=== PATIENT | female | born 1960 | race Caucasian/White ===

== ENCOUNTER → 2020-02-02 14:58 | Outpatient (BNVA) | payer OTHER, SELFPAY | PROVIDERS: PCP Internal Medicine; Referring Provider Internal Medicine; Visit Provider Surgery | DX: Z76.89 Persons encountering health services in other specified circumstances (principal) ==

== ENCOUNTER 2020-03-10 07:34 | Outpatient (REF) | payer OTHER, SELFPAY ==
--- NOTE | 2020-03-10 07:59 | FL_ITS ---
PROCEDURE: XR GI SERIES CLINICAL INFORMATION: Gastroesophageal reflux without esophagitis. COMPARISON: None TECHNIQUE: Routine upper GI air-contrast study was performed. FINDINGS: Following oral administration of thick barium and effervescent granules there is normal propagation of bolus from the oral cavity through the pharynx, esophagus into stomach without any evidence of obstruction, narrowing or stricture. On placing patient lying supine and prone the course, caliber and peristalsis of the stomach, duodenal bulb and the CBD is normal. The mucosal pattern of the stomach and the duodenum is normal. There is no hiatal hernia or gastroesophageal reflux. FLUOROSCOPY TIME: 2.4 minutes. DOSE AREA PRODUCT: 69.856 uGy-m2 (microgray-meter squared). FL/FL upper GI series IMPRESSION: Unremarkable upper GI air-contrast study.
--- NOTE | 2020-03-10 07:59 | XR_ITS ---
EXAMINATION: XR HIP, LEFT CLINICAL INFORMATION: Pain left hip. COMPARISON: Left hip 11/17/2015 TECHNIQUE: Two views of the left hip. FINDINGS: The left hip joint space is maintained. There is no visible acute fracture, dislocation or subluxation. The soft tissues are normal. No bony abnormality seen. XR/XR hip LT min 2V IMPRESSION: Unremarkable left hip exam. No visible acute fracture or dislocation seen. No change from 11/17/2015.
[2020-03-10 08:35] LABS: Hematocrit 43.1 % (37-47); Hemoglobin 14.4 g/dl (12.0-16.0); Mean Corpuscular HGB Conc 33.4 g/dl (31.0-35.0); Mean Corpuscular Hemoglobin 30.3 pg (27.0-33.0); Mean Corpuscular Volume 90.7 fL (80-98); Mean Platelet Volume 10.1 fL (9.4-12.3); Platelet Count 242 X10*3/uL (160-400); Red Blood Count 4.75 X10*6/uL (4.20-5.50); Red Cell Distribution Width 12.8 % (11.0-16.0); White Blood Count 6.3 X10*3/uL (4.8-10.8)
[2020-03-10 09:37] LABS: Alanine Aminotransferase 27 U/L (0-31); Albumin Level 4.4 g/dL (3.5-5.0); Alkaline Phosphatase 72 U/L (39-117); Anion Gap 14 (12-20); Aspartate Amino Transferase 28 U/L (5-31); Bilirubin Total 0.7 mg/dL (0.0-1.0); Blood Urea Nitrogen 13 mg/dL (9-16); Calcium 9.4 mg/dL (8.4-10.2); Carbon Dioxide 27 mmol/L (22-29); Chloride 106 mmol/L (96-108); Cholesterol 222 mg/dL; Estimated Glomerular Filt Rate > 60; Glucose Fasting 108 mg/dL (60-99); HDL Cholesterol 60 mg/dL; LDL Cholesterol Calculated 138 mg/dl; Potassium 4.1 mmol/l (3.3-5.1); Sodium 143 mmol/L (135-145); Total Protein 7.2 g/dL (6.5-8.0); Triglycerides 122 mg/dL
[2020-03-15 16:07] LABS: Vitamin D 25-OH, D2 <4 ng/mL; Vitamin D 25-OH, D3 49 ng/mL; Vitamin D 25-OH, Total 49 ng/mL (30-100)
== END 2020-03-10 07:35 | disposition home or self-care (01) ==
LOC: HO.LAB 07:34
PROVIDERS: PCP Internal Medicine; Visit Provider Internal Medicine
DX: K21.9 Gastro-esophageal reflux disease without esophagitis (principal); M25.552 Pain in left hip; E55.9 Vitamin D deficiency, unspecified; E66.9 Obesity, unspecified; E78.5 Hyperlipidemia, unspecified
CPT/HCPCS: 36415; 73502; 74240; 80053; 80061; 82306; 85027

== ENCOUNTER 2020-04-11 08:54 | Outpatient (REF) | payer SELFPAY ==
--- NOTE | 2020-04-11 | MM_ITS ---
EXAMINATION: MM DIAGNOSTIC DIGITAL BREAST TOMOSYNTHESIS, RIGHT CLINICAL INFORMATION: Density upper outer aspect The lifetime risk of breast cancer based on the Tyrer-Cuzick Model is 12.1%. COMPARISON: Mammography: October 12, 2019 and studies dating back to February 09, 2014 TECHNIQUE: Digital breast tomosynthesis is performed in both the craniocaudal and mediolateral oblique views along with computer-aided detection (CAD). Synthesized 2D images are generated from the tomosynthesis. FINDINGS: The breasts are heterogeneously dense, which may obscure small masses (ACR BI-RADS breast composition Category c). There are no significant masses, abnormal calcifications, or other abnormalities. The density within the upper outer aspect of the right breast is seen to have a fatty cleft representing intramammary lymph node. Results are provided to the patient at time of visit by the technologist. MM/MM tomosynthesis diagnostic RT IMPRESSION: There are no significant changes from prior study. ASSESSMENT: BI-RADS 2: Benign RECOMMENDATION: Routine annual mammography screening, due in 6 months. This patient's information was entered into a reminder system with a target due date for their next mammogram.
== END 2020-04-11 08:55 | disposition home or self-care (01) ==
LOC: HO.MAMMO 08:54
PROVIDERS: PCP Internal Medicine; Visit Provider Internal Medicine
DX: N64.9 Disorder of breast, unspecified (principal)
CPT/HCPCS: 77061; 77065

== ENCOUNTER 2020-10-10 08:32 | Outpatient (REF) | payer OTHER, SELFPAY ==
--- NOTE | ~2020-10-10 | MM_ITS ---
EXAMINATION: MM SCREENING DIGITAL BREAST TOMOSYNTHESIS, BILATERAL CLINICAL INFORMATION: Screening. Asymptomatic. The lifetime risk of breast cancer based on the Tyrer-Cuzick Model is 13%. COMPARISON: Mammography: 04/11/2020, 10/12/2019, 10/07/2019, 09/17/2019, 09/10/2018, 10/03/2017 TECHNIQUE: Digital breast tomosynthesis is performed in both the craniocaudal and mediolateral oblique views along with computer-aided detection (CAD). Synthesized 2D images are generated from the tomosynthesis. FINDINGS: The breasts are heterogeneously dense, which may obscure small masses (ACR BI-RADS breast composition Category c). There are no significant masses, abnormal calcifications, or other abnormalities. Parenchymal pattern is similar to prior studies. No developing density. Nodular asymmetry posterior outer right breast stable. There are scattered calcifications. Left breast and central biopsy clip marker. The axilla and skin contours are unremarkable. MM/MM tomosynthesis screening BI IMPRESSION: No mammographic evidence of malignancy. ASSESSMENT: BI-RADS 2: Benign RECOMMENDATION: Routine annual mammography screening. This patient's information was entered into a reminder system with a target due date for their next mammogram.
== END 2020-10-10 08:33 | disposition home or self-care (01) ==
LOC: HO.MAMMO 08:32
PROVIDERS: Visit Provider Internal Medicine
DX: Z12.31 Encounter for screening mammogram for malignant neoplasm of breast (principal)
CPT/HCPCS: 77063; 77067

== ENCOUNTER 2021-08-19 08:32 | Outpatient (REF) | payer OTHER, SELFPAY ==
[2021-08-19 08:54] LABS: MANUAL DIFF FLAG NO
[2021-08-19 09:19] LABS: Basophils Percent Auto 0.7 % (0-2); Eosinophils Absolute Auto 0.1 X10*3/uL (0.0-0.4); Eosinophils Percent Auto 2.3 % (0-4); Hemoglobin 14.2 g/dl (12.0-16.0); Imm Gran Abs Auto 0.02 X10*3/uL (0.00-0.03); Imm Gran Pct Auto 0.3 % (0.0-0.4); Lymphocytes Absolute Auto 1.8 X10*3/uL (1.2-4.9); Lymphocytes Percent Auto 29.4 % (20-40); Mean Corpuscular HGB Conc 33.8 g/dl (31.0-35.0); Mean Corpuscular Hemoglobin 30.7 pg (27.0-33.0); Mean Corpuscular Volume 90.7 fL (80.0-98.0); Monocytes Absolute Auto 0.5 X10*3/uL (0.1-1.2); Monocytes Percent Auto 8.6 % (2-11); Neutrophils Absolute Auto 3.6 x10*3/uL (2.0-8.3); Neutrophils Percent Auto 58.7 % (45-73); Platelet Count 210 X10*3/uL (160-400); Red Blood Count 4.63 X10*6/uL (4.20-5.50); Red Cell Distribution Width 13.5 % (11.0-16.0); White Blood Count 6.2 X10*3/uL (4.8-10.8)
[2021-08-19 09:42] LABS: Alanine Aminotransferase 18 U/L (0-31); Albumin Level 4.3 g/dL (3.5-5.0); Alkaline Phosphatase 75 U/L (39-117); Anion Gap 12 (12-20); Aspartate Amino Transferase 17 U/L (5-31); Bilirubin Total 0.7 mg/dL (0.0-1.0); Blood Urea Nitrogen 16 mg/dL (9-16); Calcium 9.2 mg/dL (8.4-10.2); Carbon Dioxide 28 mmol/L (22-29); Chloride 107 mmol/L (96-108); Cholesterol 197 mg/dL; Estimated Glomerular Filt Rate > 60; Glucose Fasting 110 mg/dL (60-99); HDL Cholesterol 65 mg/dL; LDL Cholesterol Calculated 117 mg/dl; Potassium 4.5 mmol/L (3.3-5.1); Sodium 142 mmol/L (135-145); Total Protein 7.1 g/dL (6.5-8.0); Triglycerides 75 mg/dL
[2021-08-19 10:05] LABS: Erythrocyte Sedimentation Rate 11 MM/HR (0-20)
[2021-08-19 10:18] LABS: Vitamin D 25-OH Total 59.6 ng/mL (>30)
[2021-08-19 11:20] LABS: Alanine Aminotransferase 19 U/L (0-31); Albumin Level 4.4 g/dL (3.5-5.0); Alkaline Phosphatase 74 U/L (39-117); Anion Gap 15 (12-20); Aspartate Amino Transferase 21 U/L (5-31); Bilirubin Total 0.5 mg/dL (0.0-1.0); Blood Urea Nitrogen 15 mg/dL (9-16); C Reactive Protein 0.69 mg/dL (< or = 0.50); Calcium 9.4 mg/dL (8.4-10.2); Carbon Dioxide 27 mmol/L (22-29); Chloride 107 mmol/L (96-108); Estimated Glomerular Filt Rate > 60; Glucose Random 112 mg/dL (60-115); Potassium 4.5 mmol/L (3.3-5.1); Sodium 144 mmol/L (135-145); Total Protein 7.1 g/dL (6.5-8.0)
[2021-08-21 13:52] LABS: CA 125 New Method 7 U/mL (<35); CA-125 7 U/mL (<35)
== END 2021-08-19 08:33 | disposition home or self-care (01) ==
LOC: HO.LAB 08:32
PROVIDERS: Absent Provider Internal Medicine Rheumatology; PCP Internal Medicine; Visit Provider Internal Medicine
DX: Z00.00 Encounter for general adult medical examination without abnormal findings (principal); M88.9 Osteitis deformans of unspecified bone; E55.9 Vitamin D deficiency, unspecified; E78.5 Hyperlipidemia, unspecified; D64.9 Anemia, unspecified; Z91.89 Other specified personal risk factors, not elsewhere classified; Z83.49 Family history of other endocrine, nutritional and metabolic diseases
CPT/HCPCS: 36415; 80053; 80061; 81256; 82306; 85025; 85652; 86140; 86304

== ENCOUNTER 2021-11-03 08:53 | Outpatient (REF) | payer OTHER, SELFPAY ==
--- NOTE | ~2021-11-03 | MM_ITS ---
EXAMINATION: MM SCREENING DIGITAL BREAST TOMOSYNTHESIS, BILATERAL CLINICAL INFORMATION: Screening. Asymptomatic. The lifetime risk of breast cancer based on the Tyrer-Cuzick Model is 10%. COMPARISON: Mammography: 10/11/2020, 04/11/2020, 10/12/2019, 10/07/2019, 09/10/2018, 09/03/2017, 08/29/2016; targeted ultrasound right breast 10/12/2019 TECHNIQUE: Digital breast tomosynthesis is performed in both the craniocaudal and mediolateral oblique views along with computer-aided detection (CAD). Synthesized 2D images are generated from the tomosynthesis. FINDINGS: The breasts are heterogeneously dense, which may obscure small masses (ACR BI-RADS breast composition Category c). Parenchymal pattern is similar to prior studies. Probable intraparenchymal node posterior outer right breast is stable. There is a biopsy clip marker again seen central left breast mid depth. There is no interval mass or developing density or architectural abnormality. No abnormal calcifications. The axilla and skin contours are unremarkable. MM/MM tomosynthesis screening BI IMPRESSION: No mammographic evidence of malignancy. ASSESSMENT: BI-RADS 2: Benign RECOMMENDATION: Routine annual mammography screening. This patient's information was entered into a reminder system with a target due date for their next mammogram.
== END 2021-11-03 08:54 | disposition home or self-care (01) ==
LOC: HO.MAMMO 08:53
PROVIDERS: PCP Internal Medicine; Visit Provider Internal Medicine
DX: Z12.31 Encounter for screening mammogram for malignant neoplasm of breast (principal)
CPT/HCPCS: 77063; 77067

== ENCOUNTER 2022-03-09 11:07 | Day surgery (SDC) | payer OTHER, SELFPAY ==
[2022-03-06 12:25] VITALS: BMI 44.6
--- NOTE | 2022-03-08 13:17 | HO.ANESPROP2 ---
Documented by User: Bethany Escobar NP 03/08/22 13:20 HPI - Anesthesia Eval Consult details Narrative: 62yo F for Colonoscopy PMFSH Active Problems Active Problems: All Active Problems (Updated 03/06/22 @ 12:25 by Jimena Platt, TASIA) At high risk for breast cancer (Acute) Pre-operative examination (Acute) Family history of colon cancer (Acute) Impaired glucose tolerance (Acute) Elevated blood pressure reading without diagnosis of hypertension (Acute) Essential hypertension (Acute) Knee osteoarthritis (Acute) Family history of hemochromatosis (Acute) Morbid obesity due to excess calories (Acute) Screen for colon cancer (Acute) Encounter for physical examination (Acute) GERD (gastroesophageal reflux disease) (Acute) Left hip pain (Acute) Hypovitaminosis D (Acute) Obese (Acute) Past Medical History Medical History Ascending aortic aneurysm Basal cell carcinoma Encounter for physical examination Family history of hemochromatosis GERD (gastroesophageal reflux disease) Hypercholesterolemia Hypertension Hypovitaminosis D Knee osteoarthritis Left hip pain Morbid obesity due to excess calories Obese Osteoarthritis, knee Paget's bone disease Pseudocholinesterase deficiency Screen for colon cancer Family History Family History Father Colon cancer Brother Hemochromatosis Mother Ovarian cancer Brother Colon cancer Maternal Aunt Breast cancer Surgical History Surgical History H/O basal cell carcinoma excision H/O colonoscopy History of appendectomy History of foot surgery History of laparoscopic cholecystectomy History of tonsillectomy and adenoidectomy S/P AYANA-BSO (total abdominal hysterectomy and bilateral salpingo-oophorectomy) Social History Social History Household Members Other:: sister Housing: House Are you a primary care team coordinator scheduler to a significant other at home: No Do you presently have visiting nurse or other home services: No Alcohol intake: never Patient Tobacco Use Status: Never used Tobacco e-Cigarette/Vaping Use: Never Used Second Hand Smoke Exposure: No Use of substances other than those prescribed or required for medical reasons: No Have you been hit, kicked, punched, or otherwise hurt by someone within the past year? If so, by whom?: No Are you DNR?: No Advance Directives: No Advance Directives Information Provided: Yes Advance Directives on File: No Recently lost weight without trying: No service: No Current occupational status: unemployed Cognitive needs: No Hearing needs: No Vision needs: Yes Meds Allergies Allergy/AdvReac Type Severity Reaction Status Date / Time Cephalosporins Allergy Intermediate FLUSHING Verified 03/06/22 12:12 [CEPHALOSPORINS] IN FACE FEVER Penicillins [PENICILLINS] Allergy Intermediate FLUSHING Verified 03/06/22 12:12 IN FACE, FEVER Sulfa (Sulfonamide Allergy Unknown Unknown Verified 03/06/22 12:13 Antibiotics) Home Medications Medication Instructions Recorded Confirmed Last Taken Type biotin 5,000 mcg sublingual tablet 5,000 mcg sublingual DAILY 07/20/21 03/06/22 Unknown History cholecalciferol (vitamin D3) 125 125 mcg PO DAILY 07/20/21 03/06/22 Unknown History mcg (5,000 unit) capsule glucosamine sulfate 750 mg tablet 325 mg PO DAILY 07/20/21 03/06/22 Unknown History ibuprofen 125 mg-acetaminophen 250 1 tab PO Q8H PRN Pain 07/20/21 03/06/22 Unknown History mg tablet (Advil Dual Action) Mylanta PRN Acid Reflux 03/06/22 03/06/22 Unknown History Exam Exam Date and Time: March 08, 2022 1317 Height,Weight and Vital Signs: Height 5 ft 4 in Weight 117.934 kg Pertinent Lab Results Pertinent Lab Results: Laboratory Tests 08/19/21 08/19/21 08:52 08:52 WBC 6.2 Hgb 14.2 Hct 42.0 Plt Count 210 Sodium 144 Potassium 4.5 Chloride 107 Carbon Dioxide 27 BUN 15 Creatinine 0.75 Assessment and Plan Assessment Anesthesia Assessment: Chart Reviewed Documented by User: Deepika Erickson MD 03/09/22 12:48 PMFSH Past Medical History Medical History Ascending aortic aneurysm Basal cell carcinoma Encounter for physical examination Family history of hemochromatosis GERD (gastroesophageal reflux disease) Hypercholesterolemia Hypertension Hypovitaminosis D Knee osteoarthritis Left hip pain Morbid obesity due to excess calories Obese Osteoarthritis, knee Paget's bone disease Pseudocholinesterase deficiency Screen for colon cancer Family History Family History Father Colon cancer Brother Hemochromatosis Mother Ovarian cancer Brother Colon cancer Maternal Aunt Breast cancer Surgical History Surgical History H/O basal cell carcinoma excision H/O colonoscopy History of appendectomy History of foot surgery History of laparoscopic cholecystectomy History of tonsillectomy and adenoidectomy S/P AYANA-BSO (total abdominal hysterectomy and bilateral salpingo-oophorectomy) History of Problems with Anesthesia: No Social History Social History Household Members Other:: sister Housing: House Are you a primary care team coordinator scheduler to a significant other at home: No Do you presently have visiting nurse or other home services: No Alcohol intake: never Patient Tobacco Use Status: Never used Tobacco e-Cigarette/Vaping Use: Never Used Second Hand Smoke Exposure: No Use of substances other than those prescribed or required for medical reasons: No Have you been hit, kicked, punched, or otherwise hurt by someone within the past year? If so, by whom?: No Are you DNR?: No Advance Directives: No Advance Directives Information Provided: Yes Advance Directives on File: No Recently lost weight without trying: No service: No Current occupational status: unemployed Cognitive needs: No Hearing needs: No Vision needs: Yes Meds Allergies Allergy/AdvReac Type Severity Reaction Status Date / Time Cephalosporins Allergy Intermediate FLUSHING Verified 03/06/22 12:12 [CEPHALOSPORINS] IN FACE FEVER Penicillins [PENICILLINS] Allergy Intermediate FLUSHING Verified 03/06/22 12:12 IN FACE, FEVER Sulfa (Sulfonamide Allergy Unknown Unknown Verified 03/06/22 12:13 Antibiotics) Home Medications Medication Instructions Recorded Confirmed Last Taken Type biotin 5,000 mcg sublingual tablet 5,000 mcg sublingual DAILY 07/20/21 03/06/22 Unknown History cholecalciferol (vitamin D3) 125 125 mcg PO DAILY 07/20/21 03/06/22 Unknown History mcg (5,000 unit) capsule glucosamine sulfate 750 mg tablet 325 mg PO DAILY 07/20/21 03/06/22 Unknown History ibuprofen 125 mg-acetaminophen 250 1 tab PO Q8H PRN Pain 07/20/21 03/06/22 Unknown History mg tablet (Advil Dual Action) Mylanta PRN Acid Reflux 03/06/22 03/06/22 Unknown History Exam Airway Mallampati Class: III TM Dist: >3cm Neck ROM: Full Loose/Missing/Broken Teeth: No Heart: RRR Lungs: CTA Assessment and Plan Assessment Anesthesia Assessment: Anesthesia Plan Discussed Final Anesthetic Review History of Problems with Anesthesia: No NPO: Yes ASA Class: III Final Preanesthetic Review: Meds/Allgs Chart Reviewed, Consent Obtained/Reviewed and Anes Risks/Benef Reviewed Patient Risk: Intermediate Procedure Risk: Low Anesthetic Plan Anesthetic Plan: MAC: Disposition: Standard PACU
--- NOTE | 2022-03-09 11:55 | MHC.SHP ---
Pre-Procedural Eval Section A Date of Service: 03/09/22 The patient is an INPATIENT: No The History & Physical has been completed within 30 days and I have reviewed it.: No Section B Chief Complaint: Screening, FH of malignant neoplasm of digestive Details of Present Illness: Colon cancer screening, family history of colon cancer Relevant Family History (Specify if Yes): Yes Relevant Social History: None Present Medications: see Short Stay Collaborative assessment Medical History: Significant History (Morbid obesity Ascending aortic aneurysm GERD High cholesterol Hypertension Has A's disease Osteoarthritis of the knees and hip History of basal cell carcinoma) History of Previous Operations: Relevant previous surgery/procedure and date(s) (H/O basal cell carcinoma excision H/O colonoscopy History of appendectomy History of foot surgery History of laparoscopic cholecystectomy History of tonsillectomy and adenoidectomy S/P AYANA-BSO (total abdominal hysterectomy and bilateral salpingo-oophorectomy)) Allergies: Allergies Allergy/AdvReac Type Severity Reaction Status Date / Time Cephalosporins Allergy Intermediate FLUSHING Verified 03/06/22 12:12 [CEPHALOSPORINS] IN FACE FEVER Penicillins [PENICILLINS] Allergy Intermediate FLUSHING Verified 03/06/22 12:12 IN FACE, FEVER Sulfa (Sulfonamide Allergy Unknown Unknown Verified 03/06/22 12:13 Antibiotics) Review of Systems Sugical H&P ROS: Negative: Cardiovascular, Respiratory and Gastrointestinal and Yes, Specify: Constitution (morbidly obese) Exam Surgical H&P Exam: Normal: Heart, Normal: Lungs, Normal: Extremities and Normal: Abdomen Plan Diagnosis/Plan: Unchanged I have reviewed the history and physical and performed a pertinent physical examination on my patient. No changes have occurred unless specified. Time Spent With Patient Time: Total time managing care of this patient today ____ minutes.
[2022-03-09 12:11] VITALS: BP 163/90; PULSE 95; RESP 16; TEMP 37.4; O2SAT 97
[2022-03-09] MEDS: Lactated Ringers 1,000 ML 100 ML IVCONT (12:15)
--- NOTE | 2022-03-09 12:54 | P.BOP_ITS ---
Brief Operative Note Date of Service: 03/09/22 Pre-op diagnosis: Colon cancer screen, history of colon polyps, family history of colon cancer (maternal cousin of colon cancer at age 45 to 50 yrs) Multiple cancers on maternal side of family Post-op diagnosis: other (COLON POLYPS, DIVERTICULOSIS, HEMORRHOIDS) Procedure: COLONOSCOPY TILL CECUM WITH SNARE POLYPECTOMY, SUBMUCOSAL INJECTION AND HEMOCLIP PLACEMENT Surgeon: Josef Bledsoe MD Anesthesia: MAC Was an Puttying And Calking Supervisor used for this Procedure?: Yes Puttying And Calking Supervisor: Edmund Villalpando Estimated blood loss (mL): 1 Pathology: other (A) Polyp Cecum) Condition: stable Disposition: PACU
--- NOTE | 2022-03-09 12:55 | W.PM.OPN ---
Operative Note Operative Note Date of Service: 03/09/22 Narrative: Pre-op diagnosis: Colon cancer screen, history of colon polyps, family history of colon cancer (maternal cousin of colon cancer at age 45 to 50 yrs)? Multiple cancers on maternal side of family Post-op diagnosis:?other (COLON POLYPS, DIVERTICULOSIS, HEMORRHOIDS) Surgeon: Josef Bledsoe MD Anesthesia:?MAC COLONOSCOPY TILL CECUM WITH SNARE POLYPECTOMY, SUBMUCOSAL INJECTION AND HEMOCLIP PLACEMENT Consent: Indications for the procedure and potential complications of bleeding, perforation, reaction to medications and missed diagnosis were discussed with the patient and informed consent was obtained. Instrument: Olympus PCF H 190 L variable stiffness pediatric colonoscope Monitoring: Vital signs and clinical assessment, intermittent blood pressure monitoring, continuous EKG monitoring, Pulse oximetry and Carbon Dioxide monitoring were done throughout the procedure. Colon withdrawl time was 32 minutes. Procedure: The patient was placed in the left lateral decubitis position and pre-procedure medications were administered. After a digital rectal examination of the ano-rectum, the video colonoscope was inserted into the rectum and advanced through the colon to the cecum. The colonoscope was slowly withdrawn in a retrograde panoramic fashion and the colon mucosa was carefully examined including a retroflexed view of the rectum. Findings and interventions are described below. Procedure Difficulty: Without difficulty Findings: Terminal Ileum: Not evaluated Cecum: A 10-12 mm flat polyp adjacent to the appendicular orifice. Polyp was raised with 7 cc of normal saline and removed with a stiff snare (hot). Polypectomy site was closed with 1 hemoclip. A 2nd 1.5 to 2 cms sessile polyp adjacent to ICV removed with a hot (stiff) snare. Some bleeding from polypectomy site treated with cautery using the snare tip Ascending Colon: A 1 cms non bleeding AVM in the proximal AC Transverse Colon: Normal Descending Colon: Moderate diverticulosis Sigmoid Colon: Moderate diverticulosis Rectum: Normal Ano-rectum: Small internal hemorrhoids Colon preparation: Good in the transverse and left colon and fair in the right colon Impression and Post Procedure Diagnosis: Colonoscopy Findings: Two medium sized polyps removed (one polyp was not retrieved) Moderate diverticulosis seen in the left colon Small hemorrhoids on retroflexed exam. Plan: Await pathology results Patient has an appointment on 03/23/21 in the [facility] with Nydia Tipton NP. Repeat Colonoscopy interval based on path results - in 1-2 years if polyps are adenomatous (to check polypectomy sites in the cecum) and due to fair prep in the right colon (needs to take Dulcolax for 2 days for future colonoscopies). Above findings were reviewed with the patient and colon polyps and diverticulosis handouts were given in the discharge area
[2022-03-09 13:48] VITALS: BP 130/66; PULSE 83; RESP 20; TEMP 37.3; O2SAT 99
[2022-03-09 14:03] VITALS: BP 132/81; PULSE 87; RESP 20; TEMP 37.3; O2SAT 95
== END 2022-03-09 14:28 | disposition home or self-care (01) ==
PROVIDERS: PCP Internal Medicine; Visit Provider Internal Medicine Gastroenterology
PROC: 0DJD8ZZ Inspection of Lower Intestinal Tract, Via Natural or Artificial Opening Endoscopic (ICD-10-PCS; CPT 45378; principal; 2022-03-09 12:40)
DX: Z12.11 Encounter for screening for malignant neoplasm of colon (principal); Z86.010 Personal history of colon polyps; D12.0 Benign neoplasm of cecum; K57.30 Diverticulosis of large intestine without perforation or abscess without bleeding; K55.20 Angiodysplasia of colon without hemorrhage; K64.8 Other hemorrhoids; K21.9 Gastro-esophageal reflux disease without esophagitis; E66.01 Morbid (severe) obesity due to excess calories; Z68.42 Body mass index [BMI] 45.0-49.9, adult; I10 Essential (primary) hypertension; M88.9 Osteitis deformans of unspecified bone; Z88.0 Allergy status to penicillin; Z88.2 Allergy status to sulfonamides; Z85.828 Personal history of other malignant neoplasm of skin
CPT/HCPCS: 45385; 45381; 88305; J2250

== ENCOUNTER → 2022-03-23 10:22 | Outpatient (BNVA) | payer OTHER, SELFPAY | PROVIDERS: PCP Internal Medicine; Referring Provider Internal Medicine; Visit Provider Nurse Practitioner | DX: Z13.89 Encounter for screening for other disorder (principal) ==

== ENCOUNTER 2022-08-17 09:05 | Outpatient (REF) | payer OTHER, SELFPAY ==
--- NOTE | ~2022-08-17 | XR_ITS ---
EXAMINATION: XR PELVIS XR KNEES, STANDING BILATERAL XR KNEE, LEFT XR KNEE, RIGHT CLINICAL INFORMATION: Pain in knees and hips. COMPARISON: Left hip 03/10/2020, bilateral hips 11/17/2015, bilateral knees 03/16/2011. TECHNIQUE: Single view pelvis, 2 views each knee, single standing view both knees. FINDINGS: PELVIS: Marked sclerotic changes are again seen in the pelvis with cortical thickening consistent with Paget's disease, similarly noted in the past. A single surgical clip is present in the pelvis. Mild degenerative changes are seen at the hip joints, right greater than left which have progressed slightly since 2015. RIGHT KNEE: There has been marked progression of degenerative changes in the knees since 2011 with near obliteration of the medial compartment and large amount of new sclerosis and osteophyte formation along with subchondral cyst formation. There is marked narrowing of the patellofemoral compartment as well along with marked posterior patellar osteophytes. No significant joint effusion is seen. No fractures. LEFT KNEE: Similar changes are present in the left knee with marked progression of degenerative change in the left knee. In 2011, there was already significant narrowing of the medial compartment which has increased. There is new marked sclerosis and progression of disease in the patellofemoral compartment with marked narrowing and severe increase in osteophyte formation. No joint effusion is seen. No fractures. XR/XR pelvis 1-2V IMPRESSION: 1. Mild degenerative changes at the hip joints, right greater than left. 2. Marked progression of degenerative changes in both knees since 2011.
--- NOTE | ~2022-08-17 | XR_ITS ---
EXAMINATION: XR PELVIS XR KNEES, STANDING BILATERAL XR KNEE, LEFT XR KNEE, RIGHT CLINICAL INFORMATION: Pain in knees and hips. COMPARISON: Left hip 03/10/2020, bilateral hips 11/17/2015, bilateral knees 03/16/2011. TECHNIQUE: Single view pelvis, 2 views each knee, single standing view both knees. FINDINGS: PELVIS: Marked sclerotic changes are again seen in the pelvis with cortical thickening consistent with Paget's disease, similarly noted in the past. A single surgical clip is present in the pelvis. Mild degenerative changes are seen at the hip joints, right greater than left which have progressed slightly since 2015. RIGHT KNEE: There has been marked progression of degenerative changes in the knees since 2011 with near obliteration of the medial compartment and large amount of new sclerosis and osteophyte formation along with subchondral cyst formation. There is marked narrowing of the patellofemoral compartment as well along with marked posterior patellar osteophytes. No significant joint effusion is seen. No fractures. LEFT KNEE: Similar changes are present in the left knee with marked progression of degenerative change in the left knee. In 2011, there was already significant narrowing of the medial compartment which has increased. There is new marked sclerosis and progression of disease in the patellofemoral compartment with marked narrowing and severe increase in osteophyte formation. No joint effusion is seen. No fractures. XR/XR knee standing BI IMPRESSION: 1. Mild degenerative changes at the hip joints, right greater than left. 2. Marked progression of degenerative changes in both knees since 2011.
--- NOTE | ~2022-08-17 | XR_ITS ---
EXAMINATION: XR PELVIS XR KNEES, STANDING BILATERAL XR KNEE, LEFT XR KNEE, RIGHT CLINICAL INFORMATION: Pain in knees and hips. COMPARISON: Left hip 03/10/2020, bilateral hips 11/17/2015, bilateral knees 03/16/2011. TECHNIQUE: Single view pelvis, 2 views each knee, single standing view both knees. FINDINGS: PELVIS: Marked sclerotic changes are again seen in the pelvis with cortical thickening consistent with Paget's disease, similarly noted in the past. A single surgical clip is present in the pelvis. Mild degenerative changes are seen at the hip joints, right greater than left which have progressed slightly since 2015. RIGHT KNEE: There has been marked progression of degenerative changes in the knees since 2011 with near obliteration of the medial compartment and large amount of new sclerosis and osteophyte formation along with subchondral cyst formation. There is marked narrowing of the patellofemoral compartment as well along with marked posterior patellar osteophytes. No significant joint effusion is seen. No fractures. LEFT KNEE: Similar changes are present in the left knee with marked progression of degenerative change in the left knee. In 2011, there was already significant narrowing of the medial compartment which has increased. There is new marked sclerosis and progression of disease in the patellofemoral compartment with marked narrowing and severe increase in osteophyte formation. No joint effusion is seen. No fractures. XR/XR knee RT 2V IMPRESSION: 1. Mild degenerative changes at the hip joints, right greater than left. 2. Marked progression of degenerative changes in both knees since 2011.
--- NOTE | ~2022-08-17 | XR_ITS ---
EXAMINATION: XR PELVIS XR KNEES, STANDING BILATERAL XR KNEE, LEFT XR KNEE, RIGHT CLINICAL INFORMATION: Pain in knees and hips. COMPARISON: Left hip 03/10/2020, bilateral hips 11/17/2015, bilateral knees 03/16/2011. TECHNIQUE: Single view pelvis, 2 views each knee, single standing view both knees. FINDINGS: PELVIS: Marked sclerotic changes are again seen in the pelvis with cortical thickening consistent with Paget's disease, similarly noted in the past. A single surgical clip is present in the pelvis. Mild degenerative changes are seen at the hip joints, right greater than left which have progressed slightly since 2015. RIGHT KNEE: There has been marked progression of degenerative changes in the knees since 2011 with near obliteration of the medial compartment and large amount of new sclerosis and osteophyte formation along with subchondral cyst formation. There is marked narrowing of the patellofemoral compartment as well along with marked posterior patellar osteophytes. No significant joint effusion is seen. No fractures. LEFT KNEE: Similar changes are present in the left knee with marked progression of degenerative change in the left knee. In 2011, there was already significant narrowing of the medial compartment which has increased. There is new marked sclerosis and progression of disease in the patellofemoral compartment with marked narrowing and severe increase in osteophyte formation. No joint effusion is seen. No fractures. XR/XR knee LT 2V IMPRESSION: 1. Mild degenerative changes at the hip joints, right greater than left. 2. Marked progression of degenerative changes in both knees since 2011.
== END 2022-08-17 09:06 | disposition home or self-care (01) ==
LOC: HO.HOSX 09:05
PROVIDERS: Visit Provider Orthopaedic Surgery
DX: M17.0 Bilateral primary osteoarthritis of knee (principal); M88.9 Osteitis deformans of unspecified bone
CPT/HCPCS: 72170; 73560; 73565

== ENCOUNTER 2022-11-09 08:49 | Outpatient (REF) | payer OTHER, SELFPAY | END 2022-11-09 08:50 | disposition home or self-care (01) | LOC: HO.MAMMO 08:49 | PROVIDERS: PCP Internal Medicine; Visit Provider Internal Medicine | DX: Z12.31 Encounter for screening mammogram for malignant neoplasm of breast (principal) | CPT/HCPCS: 77063; 77067 ==

== ENCOUNTER → 2022-11-09 09:00 | Outpatient (BNV) | payer OTHER, SELFPAY | PROVIDERS: PCP Internal Medicine; Visit Provider Radiology Diagnostic Radiology | DX: Z12.31 Encounter for screening mammogram for malignant neoplasm of breast (principal) | CPT/HCPCS: 77063; 77067 ==

== ENCOUNTER 2023-01-04 10:30 | Outpatient (REF) | payer OTHER, SELFPAY ==
[2023-01-04 13:34] LABS: MANUAL DIFF FLAG NO
[2023-01-04 13:56] LABS: Basophils Percent Auto 0.5 % (0-2); Eosinophils Absolute Auto 0.2 X10*3/uL (0.0-0.4); Eosinophils Percent Auto 2.6 % (0-4); Hematocrit 42.5 % (37.0-47.0); Hemoglobin 14.5 g/dl (12.0-16.0); Imm Gran Abs Auto 0.02 X10*3/uL (0.00-0.03); Imm Gran Pct Auto 0.3 % (0.0-0.4); Lymphocytes Absolute Auto 1.8 X10*3/uL (1.2-4.9); Lymphocytes Percent Auto 31.2 % (20-40); Mean Corpuscular HGB Conc 34.1 g/dl (31.0-35.0); Mean Corpuscular Hemoglobin 31.5 pg (27.0-33.0); Mean Corpuscular Volume 92.2 fL (80.0-98.0); Mean Platelet Volume 10.9 fL (9.4-12.3); Monocytes Absolute Auto 0.5 X10*3/uL (0.1-1.2); Neutrophils Absolute Auto 3.4 x10*3/uL (2.0-8.3); Neutrophils Percent Auto 57.4 % (45-73); Platelet Count 231 X10*3/uL (160-400); Red Blood Count 4.61 X10*6/uL (4.20-5.50); White Blood Count 5.8 X10*3/uL (4.8-10.8)
[2023-01-04 14:05] LABS: Alanine Aminotransferase 23 U/L (0-31); Albumin Level 4.4 g/dL (3.5-5.0); Alkaline Phosphatase 74 U/L (39-117); Anion Gap 15 (12-20); Aspartate Amino Transferase 24 U/L (5-31); Bilirubin Total 0.5 mg/dL (0.0-1.0); Blood Urea Nitrogen 17 mg/dL (9-16); Calcium 9.8 mg/dL (8.4-10.2); Carbon Dioxide 24 mmol/L (22-29); Chloride 107 mmol/L (96-108); Cholesterol 196 mg/dL (<200); Estimated Glomerular Filt Rate > 60; Glucose Fasting 106 mg/dL (60-99); HDL Cholesterol 58 mg/dL (>40); LDL Cholesterol Calculated 122 mg/dL (<100); Potassium 4.3 mmol/L (3.3-5.1); Sodium 142 mmol/L (135-145); Total Protein 7.5 g/dL (6.5-8.0); Triglycerides 82 mg/dL (<150)
[2023-01-04 14:24] LABS: Vitamin D 25-OH Total 105.6 ng/mL (>30)
[2023-01-07 11:13] LABS: CA-125 7 U/mL (<35)
== END 2023-01-04 10:31 | disposition home or self-care (01) ==
LOC: HO.HMGCLDS 10:30
PROVIDERS: PCP Internal Medicine; Visit Provider Internal Medicine
DX: E78.5 Hyperlipidemia, unspecified (principal); R73.02 Impaired glucose tolerance (oral); D64.9 Anemia, unspecified; E55.9 Vitamin D deficiency, unspecified; Z80.41 Family history of malignant neoplasm of ovary
CPT/HCPCS: 36415; 80053; 80061; 82306; 85025; 86304

== ENCOUNTER 2023-01-14 08:10 | Outpatient (AMB) | payer OTHER, SELFPAY ==
[2023-01-14 08:17] VITALS: BP 132/84; PULSE 96; O2SAT 99; BMI 46.9
--- NOTE | 2023-01-14 08:17 | A.OFFPC_ITS ---
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: No Accompanied by: Self / Same As Patient Allergies Cephalosporins [CEPHALOSPORINS] Allergy (Intermediate, Verified 01/14/23 08:30) FLUSHING IN FACE FEVER Penicillins [PENICILLINS] Allergy (Intermediate, Verified 01/14/23 08:30) FLUSHING IN FACE, FEVER Sulfa (Sulfonamide Antibiotics) Allergy (Unknown, Verified 01/14/23 08:30) Unknown Medication List - Last Reconciled 01/14/23 by Roxane Yanes MD biotin 5,000 mcg sublingual DAILY bisacodyl (Dulcolax (bisacodyl)) 10 mg (2 x 5 mg) PO BEDTIME 2 days blood pressure monitor As directed cholecalciferol (vitamin D3) 125 mcg PO DAILY glucosamine sulfate 325 mg PO DAILY ibuprofen-acetaminophen 125-250 mg (Advil Dual Action) 1 tab PO Q8H PRN multivitamin 1 tab PO DAILY [Mylanta PRN] [id number] 100-7.5-2.691 gram (MoviPrep) 240 mL PO PER PKG DIR Tobacco use date assessed: 01/14/23 Dental Screening Dental Screen Date: 01/14/23 Did you have a dental visit in the last 12 months?: Yes Did you have a dental problem in the last 6 months where you did not have access to dental care?: No Was dental information given to patient?: Patient has dentist HPI HPI Comments History of Present Illness Details This is a 62-year-old female with morbid obesity, impaired glucose tolerance, Paget's disease and ascending aortic aneurysm that comes today for follow-up on her conditions. Blood pressure has been stable without medications. Blood glucose has decreased and she denies any polyuria or polydipsia. She is morbidly obese with a BMI of 46.9 and was advised to diet and exercise. Paget's disease has been stable and takes vitamin-D for it which I suggest to decrease it to 2000 units once a day. Has ascending aortic aneurysm in which last echocardiogram done May 2019 show 3.9 cm and this will be repeated. Denies any chest pain, shortness of breath or leg swelling. Labs were discussed. [facility] Medical History Pseudocholinesterase deficiency Knee osteoarthritis Family history of hemochromatosis Morbid obesity due to excess calories Screen for colon cancer Encounter for physical examination GERD (gastroesophageal reflux disease) Left hip pain Obese Hypercholesterolemia Ascending aortic aneurysm Hypovitaminosis D Osteoarthritis, knee Basal cell carcinoma Paget's bone disease Hypertension Surgical History H/O colonoscopy History of foot surgery H/O basal cell carcinoma excision History of tonsillectomy and adenoidectomy S/P AYANA-BSO (total abdominal hysterectomy and bilateral salpingo-oophorectomy) History of laparoscopic cholecystectomy History of appendectomy Family History Father Coronary artery disease Brother Hemochromatosis Mother Ovarian cancer, Onset Age: 74 Brother Colon cancer Maternal Aunt Breast cancer Social History Household Members Other:: sister Housing: House Are you a primary respiratory care program director to a significant other at home: No Do you presently have visiting nurse or other home services: No Alcohol intake: never Patient Tobacco Use Status: Never used Tobacco e-Cigarette/Vaping Use: Never Used Second Hand Smoke Exposure: No service: No Current occupational status: unemployed Cognitive needs: No Hearing needs: No Vision needs: Yes Questionnaire PHQ-9 Over the last 2 weeks, how often have you been bothered by any of the following problems? 1. Little interest or pleasure in doing things: not at all 2. Feeling down, depressed, or hopeless: not at all 3. Trouble falling or staying asleep, or sleeping too much: not at all 4. Feeling tired or having little energy: not at all 5. Poor appetite or overeating: not at all 6. Feeling bad about yourself - or that you are a failure or have let yourself or your family down: not at all 7. Trouble concentrating on things, such as reading the newspaper or watching television: not at all 8. Moving or speaking so slowly that other people could have noticed. Or the opposite - being so fidgety or restless that you have been moving around a lot more than usual: not at all 9. Thoughts that you would be better off or of hurting yourself in some way: not at all Total score: 0 Depression Screening Interpretation: Negative Depression Screening Done: Yes 88970 - PHQ-9 Billing: Yes Source: Developed by Drs. Edmund Patel, Torito Villalobos and colleagues, with an educational nabeel from [employer] Thrive Questionnaire Date Thrive assessed: 01/14/23 I am a: Patient What is your living situation today?: I have a steady place to live Within the past 12 months, did the food you bought not last and you didn't have the money to get more?: Never true Within the past 12 months, did you worry whether your food would run out before you got money to buy more?: Never true Do you have trouble paying for medicines?: No Do you have trouble getting transportation to medical appointments?: No Do you have trouble paying your heating and electricity bill?: No Do you have trouble taking care of your child, family member or friend?: No Do you have trouble with day-to-day activities such as bathing, preparing meals, shopping, managing finances, etc.?: No Are you currently unemployed and looking for a job?: No Are you interested in more education?: No Please select the resources that you would like help with: None Currently or been in a relationship where the following occur: no concerns reported AUDIT C Alcohol Use Questionnaire (AUDIT-C) 1. How often do you have a drink containing alcohol?: Never Total Score: 0 Score Reviewed/Action Taken: No DON-7 AMB Questionnaire DON-7 Date DON - 7 assessed: 01/14/23 Feeling nervous, anxious, or on edge: 0 = Not at all Not being able to stop or control worryin = Not at all Worrying too much about different things: 0 = Not at all Trouble relaxin = Not at all Source: Developed by Drs. Edmund Patel, Torito Villalobos and colleagues, with an educational nabeel from [employer] DON-7 Assessment Billing DON-7 Assessment Tool: DON-7 Assessment 00697 Review of Systems Const All systems reviewed & are unremarkable except as noted in HPI and below Eyes Reports no additional complaints, Denies change in vision and Denies other visual disturbances Card Denies chest pain at rest, Denies chest pain with activity, Denies edema, Denies irregular heart rhythm, Denies claudication, Denies dyspnea, Denies dyspnea on exertion, Denies orthopnea, Denies paroxysmal nocturnal dyspnea and Denies slow heart rate Resp Denies cough, Denies dyspnea and Denies dyspnea on exertion GI Denies abdominal pain, Denies change in bowel habits, Denies excessive flatus, Denies nausea and Denies vomiting Denies urinary incontinence, Denies urinary hesitancy and Denies urinary urgency Musc Denies abnormal gait, Denies atrophy, Denies deformity, Reports arthralgias and Denies limited range of motion Skin/Breast Denies bleeding lesions, Denies changing lesions and Denies rash Neuro Denies abnormal gait and Denies lack of coordination Physical exam (Primary Care) Vital Signs: Last Vital Signs Pulse 96 01/14/23 08:17 BP 132/84 01/14/23 08:17 Pulse Ox 99 01/14/23 08:17 Oxygen Delivery Method Room Air 01/14/23 08:17 BMI result Body Mass Index 46.9 Tobacco/Smoking Status: Tobacco use Status Tobacco use date assessed 01/14/23 01/14/23 08:19 Patient Tobacco Use Status Never used Tobacco 01/14/23 08:19 e-Cigarette/Vaping Use Never Used 01/14/23 08:19 PHQ-9: PHQ-9 Score PHQ-9: Total score 0 01/14/23 08:34 Depression Screening Interpretation: Negative Thrive Assessment: Date of Thrive Assessment Date Thrive assessed 01/14/23 01/14/23 08:23 Currently or been in a relationship where the following occur: no concerns reported Eyes General: appearance normal, both eyes and all related structures Eyelids: Yes eyelids normal Conjunctivae: conjunctivae normal Neck Neck: Yes normal visual inspection and Yes supple Resp Effort & Inspection: normal respiratory effort Auscultation: clear to auscultation bilaterally Cardio Jugular venous distension: no JVD Rate: regular rate Rhythm: regular rhythm Heart sounds: Murmur heart sound present Extrem General: Yes full ROM Assessment and Plan Assessment & Plan (1) Ascending aortic aneurysm: Comment: mild dilation 3.9 cm per 05/2019 ECHO Code(s): I71.2 - Thoracic aortic aneurysm, without rupture Plan: Repeat echocardiogram. (2) Paget's bone disease: Code(s): M88.9 - Osteitis deformans of unspecified bone Plan: Decrease vitamin-D supplement. (3) Morbid obesity due to excess calories: Code(s): E66.01 - Morbid (severe) obesity due to excess calories Plan: Start diet and exercise. BMI goal is less than 30. (4) Impaired glucose tolerance: Code(s): R73.02 - Impaired glucose tolerance (oral) Plan: Try to follow a low-carbohydrate diet. Orders: Orders XR DEXA axial skeleton Today N95.9 - Unspecified menopausal and perimenopausal disorder CA echo transthoracic complete Today I71.2 - Thoracic aortic aneurysm, without rupture, R01.1 - Cardiac murmur, unspecified Lipid Panel 6 Months Z68.42 - Body mass index [BMI] 45.0-49.9, adult Comprehensive [place]. Panel Fast 6 Months Z68.42 - Body mass index [BMI] 45.0- 49.9, adult Vitamin D 25-OH Total 6 Months E55.9 - Vitamin D deficiency, unspecified CA-125 6 Months Z80.41 - Family history of malignant neoplasm of ovary Coding Level of Care Code Est Pt Level 4 (50453) Diagnoses Ascending aortic aneurysm I71.2 Paget's bone disease M88.9 Morbid obesity due to excess calories E66.01 Impaired glucose tolerance R73.02 Additional Codes DON-7 Assessment Billing - DON-7 Assessment Tool: DON-7 Assessment 34104 ([id number]) Time Spent (min) 22
== END 2023-01-14 08:55 | disposition home or self-care (01) ==
PROVIDERS: PCP Internal Medicine; Visit Provider Internal Medicine
DX: I71.20 Thoracic aortic aneurysm, without rupture, unspecified (principal); M88.9 Osteitis deformans of unspecified bone; E66.01 Morbid (severe) obesity due to excess calories; Z68.42 Body mass index [BMI] 45.0-49.9, adult
CPT/HCPCS: 99214

== ENCOUNTER → 2023-02-21 13:39 | Outpatient (REF) | payer OTHER, SELFPAY ==
--- NOTE | 2023-02-21 13:46 | CA_ITS ---
Transthoracic Echocardiogram Patient (Last, First, Middle): Bouchra Au, Gender: Female Date of : 1960 Age: 63 Procedure Date: 02/21/2023 Procedure Type: Transthoracic Echocardiogram Location: OP Height: 162.56 cm Weight: 117.94 kg BSA: 2.19 m2 Heart Rate: 60 bpm BP: 142 / 80 mmHg Consumer Credit Counselor: YOLANDA Referring MD: Roxane Yanes MD Magnetic Observer: Mark Zhu MD Symptoms: R01.1 - Cardiac murmur, unspecified Study Quality: Technically Difficult/w Contrast ECG Rhythm: Sinus Conclusions: - 1. Technically difficult study due to off axis view 2. Normal LV ejection fraction 55-60% with impaired relaxation filling pattern 3. Normal cardiac valvular Doppler 4. Mildly dilated ascending aorta at 4.1 cm 5. No gross pericardial effusion Findings Procedure Information Contrast agent, definity, is being given per protocol with complications as noted. Left Ventricle Normal left ventricular size, thickness, and systolic function. The visually estimated ejection fraction is between 55-60%. Spectral Doppler is indicative of an impaired relaxation filling pattern. E/E prime ratio is between 8 and 15 consistent with indeterminate filling pressures. Right Ventricle The right ventricle was not well visualized. Atria The left atrium is normal in size. There is no evidence of interatrial shunt. The right atrium was not well visualized. Aortic Valve Normal aortic valve structure and function. There is no aortic valve stenosis. There is no aortic valve regurgitation. Mitral Valve Normal mitral valve structure and function. There is trace mitral valve regurgitation. There is no mitral valve stenosis. Pulmonic Valve The pulmonic valve was not well visualized. Tricuspid Valve The tricuspid valve was not well visualized. Tricuspid regurgitation envelope is inadequate for calculation of right ventricular systolic pressure. Normal right atrial pressure. Great Vessels The pulmonary artery was not well visualized. There is mild dilatation of the ascending aorta measuring 4.10 cm. Venous The inferior vena cava is normal in size and collapses greater than 50% with inspiration. Pericardium/Pleural There is no evidence of pericardial effusion. Prior Study Comparison No significant change compared to prior study dated: 05/20/2019. Measurements 2D Linear Measurements IVSd: 0.94 0.6-0.9/0.6-1.0 cm LVIDd: 4.34 3.9-5.3/4.2-5.9 cm LVIDd Index: 1.98 2.4-3.2/2.2-3.1 cm/m2 LVIDs: 2.91 2.0-3.6 cm LVPWd: 1.10 0.7-1.1 cm LA Diam: 3.10 2.7-3.8/3.0-4.0 cm LAIDs Index: 1.42 1.5-2.3 cm/m2 LV Mass: 185.45 67-162/88-224 g LV Mass Index: 84.68 43-95/49-115 g/m2 LVOT Diam: 1.90 3.0+(-)1.3 cm 2D Systolic Function EF 4C: 62.20 >55% EF 2C: 53.50 >55% EF BiP: 56.90 >55% Mitral Valve MV Pk E: 0.99 MV PK A: 1.14 MV Decel Time: 227.00 E/A: 0.90 E'Lateral: 8.05 E'Medial: 7.07 E/E' Med: 13.90 E/E' Lat: 12.20 PHT: 66.00 MVA PHT: 3.33 Decel Meigs: 4.34 Aortic Valve AoV Pk Juvenal: 1.50 AoV Mn Juvenal: 1.10 AoV VTI: 0.33 AoV Pk Grad: 9.00 Aov Mn Grad: 5.00 LESLEY Cont.VTI: 2.23 LVOT LVOT Pk Juvenal: 1.23 LVOT Mn Juvenal: 0.85 LVOT VTI: 0.26 LVOT Pk Grad: 6.00 LVOT Mn Grad: 3.00 LVOT Diam: 1.90 LVOT Area: 2.84 Diastolic Function MV Pk E: 0.99 MV Pk A: 1.14 E/A: 0.90 E'Medial: 7.07 E/E' Med: 13.90 E' Laterial: 8.05 E/E' Lat: 12.20 Right Ventricle TAPSE (mm): 37.90 TVS' Juvenal: 17.20 Tricuspid Valve RA Press: 3.00 Great Vessels Aorta Sinus of Valsalva: 3.70 2.0-3.5 cm Ao Asc: 4.10 2.1-3.4 cm Pulmonary Valve PV Pk Juvenal: 0.86 Peak PV Grad: 3.00 Updated in Other Vendor System with Status of Final Mark Zhu MD electronically signed on 02/21/2023 3:23:49 PM with status of Final
== END ==
LOC: HO.CARD 13:39
PROVIDERS: PCP Internal Medicine; Visit Provider Internal Medicine
DX: R01.1 Cardiac murmur, unspecified (principal); I71.20 Thoracic aortic aneurysm, without rupture, unspecified
CPT/HCPCS: 93306; Q9957

== ENCOUNTER → 2023-02-21 13:46 | Outpatient (BNV) | payer OTHER, SELFPAY | PROVIDERS: PCP Internal Medicine; Visit Provider Internal Medicine Cardiovascular Disease | DX: R01.1 Cardiac murmur, unspecified (principal) | CPT/HCPCS: 93306 ==

== ENCOUNTER 2023-03-06 13:49 | Outpatient (REF) | payer OTHER, SELFPAY ==
--- NOTE | ~2023-03-06 | MM_ITS ---
EXAMINATION: BONE DENSITOMETRY CLINICAL INDICATION: Unspecified menopausal and perimenopausal disorder. COMPARISON: Previous BD dated 02/14/2017 and baseline BD dated 12/24/2013. TECHNIQUE: Using a [employer] DXA System (software version: 13.1) manufactured by [employer], dual-energy x-ray absorptiometry was performed of the lumbar spine and left hip. The images are of good technical quality. Summary results are attached. FINDINGS: LEFT FEMUR, NECK: Current: BMD 1.418 g/cm2, Z-score 3.4, T-score 2.7, normal. Prior: BMD 1.872 g/cm2. Baseline: BMD 1.547 g/cm2. LEFT FEMUR, TOTAL: Current: BMD 1.314 g/cm2, Z-score 2.7, T-score 2.4, normal, 16.4% decrease from previous, 8.5% decrease from baseline (<5% change is not significant). Prior: BMD 1.572 g/cm2. Baseline: BMD 1.436 g/cm2. AP SPINE L1-L4: Current: BMD 1.594 g/cm2, Z-score 3.8, T-score 3.5, normal, 9.0% decrease from previous, 9.9% increase from baseline (<5% change is not significant). Prior: BMD 1.751 g/cm2. Baseline: BMD 1.451 g/cm2. IDENTIFIED RISK FACTORS: Menopause, hysterectomy, bilateral oophorectomy, osteoporosis. HISTORY OF FRACTURE: None listed. MEDICATIONS: Calcium supplements or multivitamin, vitamin D. MM/XR DEXA axial skeleton IMPRESSION: 1. DIAGNOSIS: Normal bone density based on the lowest T-score value of 2.4 in the total femur applying World Health Organization criteria. 2. 10-YEAR FRACTURE RISK PREDICTION, FRAX: According to the guidelines, FRAX calculation should only be performed on patients in the osteopenia bone density category. Therefore, FRAX was not performed on this patient. 3. Treatment Recommendations: NOF guidelines recommend consideration for treatment in postmenopausal women and men age 50 and older presenting with the following: -A hip or vertebral (clinical or morphometric) fracture. -T-score less than or equal to -2.5 at the femoral neck or spine after appropriate evaluation to exclude secondary causes. -Low bone mass at the hip or spine and a 10-year fracture probability by FRAX of greater than or equal to 3% for hip fracture or greater than or equal to 20% for major osteoporotic fracture based on the [place] adapted WHO algorithm. 4. Other Recommendations: All treatment decisions require clinical judgment and consideration of individual patient factors, including patient preferences, comorbidities, previous drug use, risk factors not captured in the FRAX model (e.g. frailty, falls, vitamin D deficiency, increased bone turnover, interval significant decline in bone density) and possible under or overestimation of fracture risk by FRAX. FUTURE SCAN RECOMMENDATION: People with diagnosed cases of osteoporosis or at high risk for fracture should have regular bone mineral density tests. For patients eligible for Medicare, routine testing is allowed once every 2 years. The testing frequency can be increased to one year for patients who have rapidly progressing disease, those who are receiving or discontinuing medical therapy to restore bone mass, or have additional risk factors.
== END 2023-03-06 13:50 | disposition home or self-care (01) ==
LOC: HO.MAMMO 13:49
PROVIDERS: PCP Internal Medicine; Visit Provider Internal Medicine
DX: Z13.820 Encounter for screening for osteoporosis (principal); Z78.0 Asymptomatic menopausal state
CPT/HCPCS: 77080

== ENCOUNTER 2023-05-16 10:30 | Outpatient (AMB) | payer OTHER, SELFPAY ==
[2023-05-16 10:35] VITALS: BP 168/84; BMI 45.0
--- NOTE | 2023-05-16 10:35 | A.OFFVIS_ITS ---
Intake Vital Signs 05/16/23 10:35 Height 5 ft 4 in Weight 261 lb 14.546 oz BMI 45.0 BP 168/84 H Blood Pressure Location Lt brachial Position Sitting Intake Visit Reasons: pre colonoscopy r/s from 04/10/23 Intake Note: Bouchra returns to office today for pre colonoscopy visit. CC: Patient denies having any GI symptoms today. She states she is loosing weight and feeling a lot better. Toy Consultant Required: No Accompanied by: Self / Same As Patient Allergies Cephalosporins [CEPHALOSPORINS] Allergy (Intermediate, Verified 05/16/23 10:47) FLUSHING IN FACE FEVER Penicillins [PENICILLINS] Allergy (Intermediate, Verified 05/16/23 10:47) FLUSHING IN FACE, FEVER Sulfa (Sulfonamide Antibiotics) Allergy (Unknown, Verified 05/16/23 10:47) Unknown HPI pre colonoscopy r/s from 04/10/23 HPI Details Assessment & Plan (1) Pre-operative examination: ?Code(s): Z01.818 - Encounter for other preprocedural examination ?Plan: Her last colonoscopy was 5? years ago and was negative.? She has a history of possible colon polyp and her brother had colon cancer. No upper or lower GI problems She has had genetic testing that shows that she is at increased risk for certain types of anesthesia under the acronymn SOCK but no problems with propofol.? She denies any cardiac or respiratory problems.? There are no infectious disease problems.? Again, her brother had colon cancer (2) Family history of colon cancer: ?Code(s): Z80.0 - Family history of malignant neoplasm of digestive organs ? ? ? Medications: New [id number] sul-Na [id number] 100-7 .5-2.691 gram (Mov iPrep) 240 mL? PO PER PK G DIR 1 ea 0RF Z80.0 - Family his tory of malignant neoplasm of digest jaylen organs ? COLONOSCOPY 03/09/22? Findings: Terminal Ileum: Not evaluated Cecum:? A 10-12 mm flat polyp adjacent to the appendicular orifice.? Polyp was raised with 7 cc of normal saline and removed with a stiff snare (hot).? Polypectomy site was closed with 1 hemoclip. A 2nd 1.5 to 2 cms sessile polyp adjacent to ICV removed with a hot (stiff) snare.? Some bleeding from polypectomy site treated with cautery using the snare tip Ascending Colon:? A 1 cms non bleeding AVM in the proximal AC Transverse Colon:? Normal Descending Colon:? Moderate diverticulosis Sigmoid Colon:? Moderate diverticulosis Rectum:? Normal Ano-rectum:? Small internal hemorrhoids Colon preparation:? Good in the transverse and left colon and fair in the right colon Impression and Post Procedure Diagnosis: Colonoscopy Findings: Two medium sized polyps removed (one polyp was not retrieved) Moderate diverticulosis seen in the left colon Small hemorrhoids on retroflexed exam. Plan: Await pathology results Patient has an appointment on 03/23/21 in the GI [facility] with? Nydia Tipton NP. Repeat Colonoscopy interval based on path results - in 1-2 years if polyps are adenomatous (to check polypectomy sites in the cecum) and due to fair prep in the right colon (needs to take Dulcolax for 2 days for future colonoscopies). BIOPSY Received: 03/09/22 Diagnosis Colon, cecal polyp:? Tubular adenoma; negative for high-grade dysplasia and carcinoma. NO LABS SINCE 12/2022 TODAY'S VISIT She was not completely clear on a last colonoscopy. No upper or lower GI problems, she has been using fiber to move her bowels with good success. I ask her to stop fiber and do a low fiber diet and dulcolax 2-3 days prior to the scope. She has had genetic testing that shows that she is at increased risk for certain types of anesthesia under the acronymn SOX (pseudocholinesterase inhibitor) but no problems with propofol. She denies any cardiac or respiratory problems. There are no infectious disease problems. Again, her brother had colon cancer. She has a HX of TA. [facility] Medical History (Updated 05/16/23 @ 11:07 by PANCHITO Zafar) BMI 45.0-49.9, adult Osteoarthritis of right knee Osteoarthritis of left knee Elevated blood pressure reading without diagnosis of hypertension Screen for colon cancer Encounter for physical examination Obese Pseudocholinesterase deficiency Knee osteoarthritis Family history of hemochromatosis Morbid obesity due to excess calories GERD (gastroesophageal reflux disease) Left hip pain Hypercholesterolemia Ascending aortic aneurysm Hypovitaminosis D Osteoarthritis, knee Basal cell carcinoma Paget's bone disease Hypertension Surgical History H/O colonoscopy History of foot surgery H/O basal cell carcinoma excision History of tonsillectomy and adenoidectomy S/P AYANA-BSO (total abdominal hysterectomy and bilateral salpingo-oophorectomy) History of laparoscopic cholecystectomy History of appendectomy Family History Father Coronary artery disease Brother Hemochromatosis Mother Ovarian cancer, Onset Age: 74 Brother Colon cancer Maternal Aunt Breast cancer Social History Household Members Other:: sister Housing: House Are you a primary hearing healthcare practitioner to a significant other at home: No Do you presently have visiting nurse or other home services: No Alcohol intake: never Patient Tobacco Use Status: Never used Tobacco e-Cigarette/Vaping Use: Never Used Second Hand Smoke Exposure: No service: No Current occupational status: unemployed Cognitive needs: No Hearing needs: No Vision needs: Yes Review of Systems Const Denies fatigue, Denies fever(s), Denies night sweats, Denies poor appetite and Reports weight loss (Intentional dieting) Eyes Details: glasses Reports requires corrective lenses ENT Reports Normal hearing present, Denies dental pain, Denies dysphagia, Denies hearing loss, Denies mouth pain, Denies odynophagia, Denies throat swelling, Denies tongue swelling and Reports other (Dentition adequate) Card Reports no additional complaints Resp Reports no additional complaints GI Details: Denies abdominal pain, Denies melena, Denies bloating, Denies hematochezia, Reports constipation, Denies GI cramping, Denies dysphagia, Denies excessive flatus, Denies early satiety, Denies heartburn, Denies diarrhea, Denies nausea, Denies odynophagia, Denies vomiting and Denies hematemesis Skin/Breast Denies pruritus, Denies lesions, Denies rash and Denies jaundice Neuro Reports Normal hearing present and Denies Abnormal speech present Endo Denies fatigue Aller/Immun Denies throat swelling and Denies tongue swelling Physical Exam Vital Signs: Last Vital Signs BP 168/84 H 05/16/23 10:35 BMI result Body Mass Index 45.0 Const General: cooperative, no acute distress, well developed and well groomed Nutritional Appearance: well nourished and obese Orientation/consciousness: oriented to person, oriented to place and oriented to time Limitations: No language barrier HEENT Head: Yes normocephalic and Yes atraumatic Eyes General: appearance normal, both eyes and all related structures Pupils: Equal, round and reactive pupils present Neck Neck: Yes normal visual inspection and Yes no lymphadenopathy Thyroid: Thyroid normal Resp Effort & Inspection: normal respiratory effort and able to speak in complete sentences Auscultation: clear to auscultation bilaterally Cardio Rate: regular rate Rhythm: regular rhythm Heart sounds: Normal, physiologic split S2 sound present Peripheral pulses: radial pulses present and posterior tibial pulses present GI Inspection: No distended, Yes Abdominal panniculus present and Yes obesity Palpation (GI): Soft to palpation, nontender, no guarding, not rigid and No hepatosplenomegaly present Percussion: Yes normal to percussion Auscultation: normal bowel sounds Rectal Exam - Female: deferred Skin General skin exam: no rashes or lesions noted, turgor normal, skin not dry, no jaundice, No spider nevi and no striae Rashes: no rashes Nails: normal Neuro General: oriented to person, oriented to place and oriented to time Cranial nerves: Yes Equal, round and reactive pupils present and Yes Normal hearing present Speech: No Abnormal speech present Extrem General: Yes normal to inspection, No clubbing, No cyanosis and No edema Psych Appearance: grossly normal and well kempt Mental Status: mental status grossly normal Speech and movement: Normal speech and movement present Affect: normal affect Attitude: cooperative Thought process: Normal thought process present and not confabulating Thought content: Normal thought content present Insight: Fair insight present (Psych) Judgement: Fair judgement present (Psych) Assessment & Plan Assessment & Plan (1) Tubular adenoma of colon: Code(s): D12.6 - Benign neoplasm of colon, unspecified (2) Family history of colon cancer: Code(s): Z80.0 - Family history of malignant neoplasm of digestive organs (3) Morbid obesity due to excess calories: Code(s): E66.01 - Morbid (severe) obesity due to excess calories (4) Murmur: Code(s): R01.1 - Cardiac murmur, unspecified (5) Ascending aortic aneurysm: Comment: mild dilation 3.9 cm per 05/2019 ECHO Code(s): I71.2 - Thoracic aortic aneurysm, without rupture (6) Pre-operative examination: Code(s): Z01.818 - Encounter for other preprocedural examination (7) Anesthesia complication: Comment: Genetic predisposition to pseudocholinesterase inhibitor problems (SOX?) Code(s): T88.59XA - Other complications of anesthesia, initial encounter Plan She was not completely clear on a last colonoscopy. No upper or lower GI problems, she has been using fiber to move her bowels with good success. I ask her to stop fiber and do a low fiber diet and dulcolax 2-3 days prior to the scope. She has had genetic testing that shows that she is at increased risk for certain types of anesthesia under the acronymn SOX (pseudocholinesterase inhibitor) but no problems with propofol. She denies any cardiac or respiratory problems. There are no infectious disease problems. Again, her brother had colon cancer. She has a HX of TA. Orders: Orders Comprehensive Met. Panel Today Z01.818 - Encounter for other preprocedural examination Complete Blood Count Auto Diff Today Z01.818 - Encounter for other preprocedural examination Colonoscopy - GI Use Only Today D12.6 - Benign neoplasm of colon, unspecified Medications: New peg 3350-electrolytes 236-22.74-6.74 -5.86 gram (Golytely) until fecal effluent is clear; do not exceed a total volume of 2,000 mL 240 mL PO Q10M 1 day 4,000 mL 0RF Z12.11 - Encounter for screening for malignant neoplasm of colon bisacodyl (Dulcolax (bisacodyl)) 10 mg (2 x 5 mg) PO BEDTIME 2 days 7 tabs 0RF Coding Level of Care Code Est Pt Level 4 (59703) Diagnoses Tubular adenoma of colon D12.6 Family history of colon cancer Z80.0 Morbid obesity due to excess calories E66.01 Murmur R01.1 Ascending aortic aneurysm I71.2 Pre-operative examination Z01.818 Anesthesia complication T88.59XA
== END 2023-05-16 11:20 | disposition home or self-care (01) ==
PROVIDERS: PCP Internal Medicine; Referring Provider Internal Medicine; Visit Provider Nurse Practitioner
DX: D12.6 Benign neoplasm of colon, unspecified (principal); Z80.0 Family history of malignant neoplasm of digestive organs; E66.01 Morbid (severe) obesity due to excess calories; R01.1 Cardiac murmur, unspecified; I71.20 Thoracic aortic aneurysm, without rupture, unspecified; Z01.818 Encounter for other preprocedural examination; T88.59XA Other complications of anesthesia, initial encounter
CPT/HCPCS: 99214

== ENCOUNTER → 2023-05-16 10:30 | Outpatient (BNVA) | payer OTHER, SELFPAY | PROVIDERS: PCP Internal Medicine; Visit Provider Nurse Practitioner ==

== ENCOUNTER 2023-06-12 11:25 | Outpatient (REF) | payer OTHER, SELFPAY | END 2023-06-12 11:26 | disposition home or self-care (01) | LOC: HO.HMGCLDS 11:25 | PROVIDERS: PCP Internal Medicine; Visit Provider Nurse Practitioner | DX: Z13.89 Encounter for screening for other disorder (principal) ==

== ENCOUNTER 2023-06-14 06:57 | Day surgery (SDC) | payer OTHER, SELFPAY ==
[2023-06-12 13:29] LABS: MANUAL DIFF FLAG NO
[2023-06-12 13:40] LABS: Basophils Percent Auto 0.5 % (0-2); Eosinophils Absolute Auto 0.1 X10*3/uL (0.0-0.4); Eosinophils Percent Auto 1.2 % (0-4); Hematocrit 44.9 % (37.0-47.0); Hemoglobin 15.6 g/dl (12.0-16.0); Imm Gran Abs Auto 0.02 X10*3/uL (0.00-0.03); Imm Gran Pct Auto 0.3 % (0.0-0.4); Lymphocytes Absolute Auto 1.7 X10*3/uL (1.2-4.9); Lymphocytes Percent Auto 25.9 % (20-40); Mean Corpuscular HGB Conc 34.7 g/dl (31.0-35.0); Mean Corpuscular Hemoglobin 31.3 pg (27.0-33.0); Mean Platelet Volume 10.7 fL (9.4-12.3); Monocytes Absolute Auto 0.5 X10*3/uL (0.1-1.2); Monocytes Percent Auto 7.6 % (2-11); Neutrophils Absolute Auto 4.2 x10*3/uL (2.0-8.3); Neutrophils Percent Auto 64.5 % (45-73); Platelet Count 225 X10*3/uL (160-400); Red Blood Count 4.99 X10*6/uL (4.20-5.50); Red Cell Distribution Width 13.3 % (11.0-16.0); White Blood Count 6.6 X10*3/uL (4.8-10.8)
[2023-06-12 14:15] LABS: Alanine Aminotransferase 18 U/L (0-31); Albumin Level 4.4 g/dL (3.5-5.0); Alkaline Phosphatase 72 U/L (39-117); Anion Gap 16 (12-20); Aspartate Amino Transferase 23 U/L (5-31); Bilirubin Total 0.6 mg/dL (0.0-1.0); Blood Urea Nitrogen 12 mg/dL (9-16); Calcium 9.7 mg/dL (8.4-10.2); Carbon Dioxide 24 mmol/L (22-29); Chloride 106 mmol/L (96-108); Estimated Glomerular Filt Rate > 60; Glucose Random 95 mg/dL (60-115); Potassium 3.7 mmol/L (3.3-5.1); Sodium 142 mmol/L (135-145); Total Protein 7.7 g/dL (6.5-8.0)
--- NOTE | 2023-06-12 14:49 | HO.ANESPROP2 ---
Documented by User: Bethany Escobar NP 06/13/23 09:30 HPI - Anesthesia Eval Consult details Narrative: 63yo F for Colonoscopy Pseudocholinesterase deficiency s/p colo 02/2022 with MAC Anesthesia Pre-Procedure Meds Is the patient on any of the following meds?: Semaglutide (Ozempic) PMFSH Active Problems Active Problems: All Active Problems (Updated 05/16/23 @ 11:07 by PANCHITO Zafar) Anesthesia complication (Acute) Ascending aortic aneurysm (Acute) Murmur (Acute) Paget's bone disease (Acute) Family history of ovarian cancer (Acute) Tubular adenoma of colon (Acute) At high risk for breast cancer (Acute) Pre-operative examination (Acute) Family history of colon cancer (Acute) Impaired glucose tolerance (Acute) Essential hypertension (Acute) Knee osteoarthritis (Acute) Family history of hemochromatosis (Acute) Morbid obesity due to excess calories (Acute) GERD (gastroesophageal reflux disease) (Acute) Left hip pain (Acute) Hypovitaminosis D (Acute) Past Medical History Medical History (Updated 05/16/23 @ 11:07 by PANCHITO Zafar) BMI 45.0-49.9, adult Osteoarthritis of right knee Osteoarthritis of left knee Elevated blood pressure reading without diagnosis of hypertension Screen for colon cancer Encounter for physical examination Obese Pseudocholinesterase deficiency Knee osteoarthritis Family history of hemochromatosis Morbid obesity due to excess calories GERD (gastroesophageal reflux disease) Left hip pain Hypercholesterolemia Ascending aortic aneurysm Hypovitaminosis D Osteoarthritis, knee Basal cell carcinoma Paget's bone disease Hypertension Family History Family History Father Coronary artery disease Brother Hemochromatosis Mother Ovarian cancer, Onset Age: 74 Brother Colon cancer Maternal Aunt Breast cancer Surgical History Surgical History H/O colonoscopy History of foot surgery H/O basal cell carcinoma excision History of tonsillectomy and adenoidectomy S/P AYANA-BSO (total abdominal hysterectomy and bilateral salpingo-oophorectomy) History of laparoscopic cholecystectomy History of appendectomy History of Problems with Anesthesia: No Social History Social History Household Members Other:: sister Housing: House Are you a primary hearing healthcare practitioner to a significant other at home: No Do you presently have visiting nurse or other home services: No Alcohol intake: never Patient Tobacco Use Status: Never used Tobacco e-Cigarette/Vaping Use: Never Used Second Hand Smoke Exposure: No Use of substances other than those prescribed or required for medical reasons: No Are you DNR?: No Advance Directives: No Advance Directives Information Provided: Yes Recently lost weight without trying: No service: No Current occupational status: unemployed Cognitive needs: No Hearing needs: No Vision needs: Yes Meds Allergies Allergy/AdvReac Type Severity Reaction Status Date / Time Cephalosporins Allergy Intermediate FLUSHING Verified 05/16/23 10:47 [CEPHALOSPORINS] IN FACE FEVER Penicillins [PENICILLINS] Allergy Intermediate FLUSHING Verified 05/16/23 10:47 IN FACE, FEVER Sulfa (Sulfonamide Allergy Unknown Unknown Verified 05/16/23 10:47 Antibiotics) Home Medications ?Medication ?Instructions ?Recorded ?Confirmed ?Last Taken ?Type glucosamine sulfate 750 mg tablet 325 mg PO DAILY 07/20/21 01/14/23 Unknown History Mylanta PRN Acid Reflux 03/06/22 01/14/23 Unknown History multivitamin 1 tab PO DAILY 03/23/22 01/14/23 Unknown History biotin 5,000 mcg sublingual tablet 2,000 mcg sublingual DAILY 05/16/23 Unknown History cholecalciferol (vitamin D3) 50 50 mcg PO DAILY 05/16/23 Unknown History mcg (2,000 unit) capsule ibuprofen 125 mg-acetaminophen 250 2 tab PO QAM PRN Pain 05/16/23 Unknown History mg tablet (Advil Dual Action) psyllium 1 tbsp PO DAILY 05/16/23 Unknown History Exam Pertinent Lab Results Pertinent Lab Results: Laboratory Tests 06/12/23 11:30 WBC 6.6 RBC 4.99 Hgb 15.6 Hct 44.9 MCV 90.0 MCH 31.3 MCHC 34.7 RDW 13.3 Plt Count 225 MPV 10.7 Immature Gran % (Auto) 0.3 Neut % (Auto) 64.5 Lymph % (Auto) 25.9 [place] % (Auto) 7.6 Eos % (Auto) 1.2 Baso % (Auto) 0.5 Lymph # (Auto) 1.7 [place] # (Auto) 0.5 Eos # (Auto) 0.1 Baso # (Auto) 0.0 Abs Immat Gran (auto) 0.02 Absolute Neuts (auto) 4.2 Absolute Nucleated RBC 0.000 Nucleated RBC % (auto) 0.0 Sodium 142 Potassium 3.7 Chloride 106 Carbon Dioxide 24 Anion Gap 16 BUN 12 Creatinine 0.64 Estim Creat Clear Calc TNP Estimated GFR > 60 Random Glucose 95 Calcium 9.7 Total Bilirubin 0.6 AST 23 ALT 18 Alkaline Phosphatase 72 Total Protein 7.7 Albumin 4.4 Narrative Narrative: ECHO 02/2023 Conclusions: - 1. Technically difficult study due to off axis view 2. Normal LV ejection fraction 55-60% with impaired relaxation filling pattern 3. Normal cardiac valvular Doppler 4. Mildly dilated ascending aorta at 4.1 cm 5. No gross pericardial effusion Assessment and Plan Assessment Anesthesia Assessment: Chart Reviewed Final Anesthetic Review History of Problems with Anesthesia: No Documented by User: Sylvie Yi MD 06/14/23 07:57 HPI - Anesthesia Eval Anesthesia Pre-Procedure Meds If Yes to any meds - educate patient: Pt education - increased risk of aspiration and Pt education - possibility of cancelled proc at provider's discretion PMFSH Past Medical History Medical History (Updated 05/16/23 @ 11:07 by PANCHITO Zafar) BMI 45.0-49.9, adult Osteoarthritis of right knee Osteoarthritis of left knee Elevated blood pressure reading without diagnosis of hypertension Screen for colon cancer Encounter for physical examination Obese Pseudocholinesterase deficiency Knee osteoarthritis Family history of hemochromatosis Morbid obesity due to excess calories GERD (gastroesophageal reflux disease) Left hip pain Hypercholesterolemia Ascending aortic aneurysm Hypovitaminosis D Osteoarthritis, knee Basal cell carcinoma Paget's bone disease Hypertension Family History Family History Father Coronary artery disease Brother Hemochromatosis Mother Ovarian cancer, Onset Age: 74 Brother Colon cancer Maternal Aunt Breast cancer Family history of problems with anesthesia: No Surgical History Surgical History H/O colonoscopy History of foot surgery H/O basal cell carcinoma excision History of tonsillectomy and adenoidectomy S/P AYANA-BSO (total abdominal hysterectomy and bilateral salpingo-oophorectomy) History of laparoscopic cholecystectomy History of appendectomy Social History Social History Household Members Other:: sister Housing: House Are you a primary hearing healthcare practitioner to a significant other at home: No Do you presently have visiting nurse or other home services: No Alcohol intake: never Patient Tobacco Use Status: Never used Tobacco e-Cigarette/Vaping Use: Never Used Second Hand Smoke Exposure: No Use of substances other than those prescribed or required for medical reasons: No Are you DNR?: No Advance Directives: No Advance Directives Information Provided: Yes Recently lost weight without trying: No service: No Current occupational status: unemployed Cognitive needs: No Hearing needs: No Vision needs: Yes Meds Allergies Allergy/AdvReac Type Severity Reaction Status Date / Time Cephalosporins Allergy Intermediate FLUSHING Verified 05/16/23 10:47 [CEPHALOSPORINS] IN FACE FEVER Penicillins [PENICILLINS] Allergy Intermediate FLUSHING Verified 05/16/23 10:47 IN FACE, FEVER Sulfa (Sulfonamide Allergy Unknown Unknown Verified 05/16/23 10:47 Antibiotics) Home Medications ?Medication ?Instructions ?Recorded ?Confirmed ?Last Taken ?Type glucosamine sulfate 750 mg tablet 325 mg PO DAILY 07/20/21 01/14/23 Unknown History Mylanta PRN Acid Reflux 03/06/22 01/14/23 Unknown History multivitamin 1 tab PO DAILY 03/23/22 01/14/23 Unknown History biotin 5,000 mcg sublingual tablet 2,000 mcg sublingual DAILY 05/16/23 Unknown History cholecalciferol (vitamin D3) 50 50 mcg PO DAILY 05/16/23 Unknown History mcg (2,000 unit) capsule ibuprofen 125 mg-acetaminophen 250 2 tab PO QAM PRN Pain 05/16/23 Unknown History mg tablet (Advil Dual Action) psyllium 1 tbsp PO DAILY 05/16/23 Unknown History Exam Airway Mallampati Class: II TM Dist: >3cm Neck ROM: Full Heart: rrr Lungs: cta Assessment and Plan Assessment Anesthesia Assessment: Anesthesia Plan Discussed Final Anesthetic Review Family History of Problems with Anesthesia: No NPO: Yes ASA Class: III Final Preanesthetic Review: No Changes in Pt Med Stat, Meds/Allgs Chart Reviewed and Consent Obtained/Reviewed Patient Risk: Low Procedure Risk: Low Anesthetic Plan Anesthetic Plan: MAC: Disposition: Standard PACU
[2023-06-14 07:16] VITALS: BMI 43.3
[2023-06-14 07:37] VITALS: BP 138/80; PULSE 101; RESP 18; TEMP 36.8; O2SAT 95
--- NOTE | 2023-06-14 07:39 | P.HPSUR_ITS ---
Pre-Procedural Eval Section A - 24 Hr Update-Section A only Date of Service: 06/14/23 The patient is an INPATIENT: No The patient has been examined within 24 hours of the surgical procedure. The History & Physical has been completed within 30 days and I have reviewed it.: No Section B - Complete if H&P > 30 days Chief Complaint: Surveillance for colon polyps, FH of colon cancer Details of Present Illness: Colon cancer screening, family history of colon cancer Relevant Family History (Specify if Yes): Yes Relevant Social History: None Present Medications: see Short Stay Collaborative assessment Medical History: Significant History (Morbid obesity Ascending aortic aneurysm GERD High cholesterol Hypertension Has A's disease Osteoarthritis of the knees and hip History of basal cell carcinoma) History of Previous Operations: Relevant previous surgery/procedure and date(s) (H/O basal cell carcinoma excision H/O colonoscopy History of appendectomy History of foot surgery History of laparoscopic cholecystectomy History of tonsillectomy and adenoidectomy S/P AYANA-BSO (total abdominal hysterectomy and b ilateral salpingo-oophorectomy)) Allergies: Allergies Allergy/AdvReac Type Severity Reaction Status Date / Time Cephalosporins Allergy Intermediate FLUSHING Verified 05/16/23 10:47 [CEPHALOSPORINS] IN FACE FEVER Penicillins [PENICILLINS] Allergy Intermediate FLUSHING Verified 05/16/23 10:47 IN FACE, FEVER Sulfa (Sulfonamide Allergy Unknown Unknown Verified 05/16/23 10:47 Antibiotics) Review of Systems Sugical H&P ROS: Negative: Cardiovascular, Respiratory and Gastrointestinal and Yes, Specify: Constitution (morbidly obese) Exam Surgical H&P Exam: Normal: Heart, Normal: Lungs, Normal: Extremities and Normal: Abdomen Plan Diagnosis/Plan: Unchanged I have reviewed the history and physical and performed a pertinent physical examination on my patient. No changes have occurred unless specified. Time Spent With Patient Time: Total time managing care of this patient today ____ minutes.
[2023-06-14 07:52] VITALS: BP 138/80; PULSE 101; RESP 18; TEMP 36.8; O2SAT 95
[2023-06-14] MEDS: Lactated Ringers 1,000 ML 100 ML IVCONT (07:54)
--- NOTE | 2023-06-14 08:12 | P.OP_ITS ---
Operative Note Operative Note Date of Service: 06/14/23 Narrative: COLONOSCOPY TILL CECUM WITH BIOPSIES Pre-op diagnosis: Surveillance for colon polyps. Post-op diagnosis:? Diverticulosis, hemorrhoids Endoscopist:? Josef Bledsoe MD Anesthesia:?MAC Consent: Indications for the procedure and potential complications of bleeding, perforation, reaction to medications and missed diagnosis were discussed with the patient and informed consent was obtained. Instrument: Olympus PCF H 190 L variable stiffness pediatric colonoscope Monitoring: Vital signs and clinical assessment, intermittent blood pressure monitoring, continuous EKG monitoring, Pulse oximetry and Carbon Dioxide monitoring were done throughout the procedure. Please see anesthesia flowsheet. Colon withdrawl time was 18 minutes. Procedure: The patient was placed in the left lateral decubitis position and pre-procedure medications were administered. After a digital rectal examination of the ano-rectum, the video colonoscope was inserted into the rectum and advanced through the colon to the cecum. The colonoscope was slowly withdrawn in a retrograde panoramic fashion and the colon mucosa was carefully examined including a retroflexed view of the rectum. Findings and interventions are described below. Procedure Difficulty: without difficulty Findings: Terminal Ileum: Not evaluated Cecum: Edematous folds at past polypectomy site - biopsied. No recurrent/resdiual polyp was seen Ascending Colon: Normal Transverse Colon: Normal Descending Colon: Moderate diverticulosis Sigmoid Colon: Moderate diverticulosis Rectum: Normal Ano-rectum: Moderate internal hemorrhoids Colon preparation: Excellent, after some irrigation. [place] Bowel Preparation Scale Right colon; 2 Transverse colon: 3 Left colon; 3 (0 = Unprepared colon segment with mucosa not seen due to solid stool that cannot be cleared. 1 = Portion of mucosa of the colon segment seen, but other areas of the colon segment not well seen due to staining, residual stool and/or opaque liquid. 2 = Minor amount of residual staining, small fragments of stool and/or opaque liquid, but mucosa of colon segment seen well. 3 = Entire mucosa of colon segment seen well with no residual staining, small fragments of stool or opaque liquid) Impression and Post Procedure Diagnosis: Colonoscopy Findings: No polyps were detected. Edematous folds at past polypectomy site in the cecum - biopsied. No recurrent/resdiual polyp was seen Moderate diverticulosis seen in the left colon Moderate hemorrhoids on retroflexed exam. Plan: I will send a letter with biopsy results. Repeat Colonoscopy in 3-5 years if polyps are adenomatous and due to a history of adenomatous colon polyps. Above findings were reviewed with the patient and relevant handouts were given and the discharge area.
[2023-06-14 09:00] VITALS: BP 114/66; PULSE 77; RESP 14; TEMP 36.1; O2SAT 93
[2023-06-14 09:09] VITALS: BP 132/78; PULSE 74; RESP 18; TEMP 36.3; O2SAT 95
== END 2023-06-14 10:05 | disposition home or self-care (01) ==
PROVIDERS: Nurse Practitioner; PCP Internal Medicine; Visit Provider Internal Medicine Gastroenterology
PROC: 0DJD8ZZ Inspection of Lower Intestinal Tract, Via Natural or Artificial Opening Endoscopic (ICD-10-PCS; CPT 45378; principal; 2023-06-14 08:30)
DX: Z12.11 Encounter for screening for malignant neoplasm of colon (principal); Z86.010 Personal history of colon polyps; Z80.0 Family history of malignant neoplasm of digestive organs; K57.30 Diverticulosis of large intestine without perforation or abscess without bleeding; K64.8 Other hemorrhoids; K21.9 Gastro-esophageal reflux disease without esophagitis; E78.00 Pure hypercholesterolemia, unspecified; E88.09 Other disorders of plasma-protein metabolism, not elsewhere classified; E55.9 Vitamin D deficiency, unspecified; I10 Essential (primary) hypertension; M88.9 Osteitis deformans of unspecified bone; E66.01 Morbid (severe) obesity due to excess calories; Z68.42 Body mass index [BMI] 45.0-49.9, adult; Z91.89 Other specified personal risk factors, not elsewhere classified; Z88.0 Allergy status to penicillin; Z88.1 Allergy status to other antibiotic agents; Z88.2 Allergy status to sulfonamides; Z85.828 Personal history of other malignant neoplasm of skin; Z98.890 Other specified postprocedural states
CPT/HCPCS: 45380; 36415; 80053; 85025; 88305; J2704

== ENCOUNTER → 2023-06-14 06:57 | Outpatient (BNV) | payer OTHER, SELFPAY | PROVIDERS: PCP Internal Medicine; Visit Provider Internal Medicine Gastroenterology | DX: Z12.11 Encounter for screening for malignant neoplasm of colon (principal); Z86.010 Personal history of colon polyps; K57.90 Diverticulosis of intestine, part unspecified, without perforation or abscess without bleeding; K64.8 Other hemorrhoids | CPT/HCPCS: 45380 ==

== ENCOUNTER 2023-08-16 10:32 | Outpatient (REF) | payer OTHER, SELFPAY ==
[2023-08-16 13:58] LABS: Alanine Aminotransferase 15 U/L (0-31); Albumin Level 4.3 g/dL (3.5-5.0); Alkaline Phosphatase 68 U/L (39-117); Anion Gap 17 (12-20); Aspartate Amino Transferase 20 U/L (5-31); Bilirubin Total 0.7 mg/dL (0.0-1.0); Blood Urea Nitrogen 7 mg/dL (9-16); Calcium 9.4 mg/dL (8.4-10.2); Carbon Dioxide 24 mmol/L (22-29); Chloride 107 mmol/L (96-108); Cholesterol 182 mg/dL (<200); Estimated Glomerular Filt Rate > 60; Glucose Fasting 88 mg/dL (60-99); HDL Cholesterol 50 mg/dL (>40); LDL Cholesterol Calculated 113 mg/dL (<100); Sodium 144 mmol/L (135-145); Triglycerides 99 mg/dL (<150)
[2023-08-16 13:59] LABS: Vitamin D 25-OH Total 80.1 ng/mL (>30)
[2023-08-20 10:38] LABS: CA-125 8 U/mL (<35)
== END 2023-08-16 10:33 | disposition home or self-care (01) ==
LOC: HO.HMGCLDS 10:32
PROVIDERS: PCP Internal Medicine; Visit Provider Internal Medicine
DX: Z68.42 Body mass index [BMI] 45.0-49.9, adult (principal); Z80.41 Family history of malignant neoplasm of ovary; E55.9 Vitamin D deficiency, unspecified
CPT/HCPCS: 36415; 80053; 80061; 82306; 86304

== ENCOUNTER 2023-08-22 13:00 | Outpatient (AMB) | payer OTHER, SELFPAY ==
[2023-08-22 13:04] VITALS: BP 162/90; BMI 40.0
--- NOTE | 2023-08-22 13:04 | A.OFFPC_ITS ---
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 Accompanied by: Self / Same As Patient Allergies Cephalosporins [CEPHALOSPORINS] Allergy (Intermediate, Verified 08/22/23 13:13) FLUSHING IN FACE FEVER Penicillins [PENICILLINS] Allergy (Intermediate, Verified 08/22/23 13:13) FLUSHING IN FACE, FEVER Sulfa (Sulfonamide Antibiotics) Allergy (Unknown, Verified 08/22/23 13:13) Unknown Medication List - Last Reconciled 08/22/23 by Roxane Yanes MD biotin 2,000 mcg sublingual DAILY blood pressure monitor As directed cholecalciferol (vitamin D3) 50 mcg PO DAILY glucosamine sulfate 325 mg PO DAILY ibuprofen-acetaminophen 125-250 mg (Advil Dual Action) 2 tabs PO QAM PRN multivitamin 1 tab PO DAILY [Mylanta PRN] psyllium 1 tbsp PO DAILY Tobacco use date assessed: 08/22/23 Fall risk assessment: No Falls in past year Last assessed Fall Risk: 08/22/23 Dental Screening Dental Screen Date: 08/22/23 Did you have a dental visit in the last 12 months?: Yes Did you have a dental problem in the last 6 months where you did not have access to dental care?: No Was dental information given to patient?: Patient has dentist HPI HPI Comments History of Present Illness Details This is a 63-year-old female with morbid obesity that comes for her physical exam. She is morbidly obese with a BMI of 40 and has intentionally lost weight with intermittent fasting since 04/2023. Last mammogram was 11/28/2022 and was normal. No need for Pap smears due to history of hysterectomy. Last colonoscopy was 06/29/2023. No chest pain or shortness on breath. [facility] Medical History (Updated 08/22/23 @ 15:18 by Roxane Yanes MD) Encounter for physical examination BMI 45.0-49.9, adult Osteoarthritis of right knee Osteoarthritis of left knee Elevated blood pressure reading without diagnosis of hypertension Screen for colon cancer Obese Pseudocholinesterase deficiency Knee osteoarthritis Family history of hemochromatosis Morbid obesity due to excess calories GERD (gastroesophageal reflux disease) Left hip pain Hypercholesterolemia Ascending aortic aneurysm Hypovitaminosis D Osteoarthritis, knee Basal cell carcinoma Paget's bone disease Hypertension Surgical History H/O colonoscopy History of foot surgery H/O basal cell carcinoma excision History of tonsillectomy and adenoidectomy S/P AYANA-BSO (total abdominal hysterectomy and bilateral salpingo-oophorectomy) History of laparoscopic cholecystectomy History of appendectomy Family History (Updated 08/22/23 @ 13:38 by Roxane Yanes MD) Father Coronary artery disease Mother Ovarian cancer, Onset Age: 74 Maternal Aunt Breast cancer Maternal Uncle Colon cancer Hemochromatosis Social History Household Members Other:: sister Housing: House Are you a primary life care planner to a significant other at home: No Do you presently have visiting nurse or other home services: No Alcohol intake: never Patient Tobacco Use Status: Never used Tobacco e-Cigarette/Vaping Use: Never Used Second Hand Smoke Exposure: No service: No Current occupational status: unemployed Cognitive needs: No Hearing needs: No Vision needs: Yes Questionnaire PHQ-9 Over the last 2 weeks, how often have you been bothered by any of the following problems? 1. Little interest or pleasure in doing things: not at all 2. Feeling down, depressed, or hopeless: not at all 3. Trouble falling or staying asleep, or sleeping too much: not at all 4. Feeling tired or having little energy: not at all 5. Poor appetite or overeating: not at all 6. Feeling bad about yourself - or that you are a failure or have let yourself or your family down: not at all 7. Trouble concentrating on things, such as reading the newspaper or watching television: not at all 8. Moving or speaking so slowly that other people could have noticed. Or the opposite - being so fidgety or restless that you have been moving around a lot more than usual: not at all 9. Thoughts that you would be better off or of hurting yourself in some way: not at all Total score: 0 Depression Screening Interpretation: Negative Depression Screening Done: Yes 05403 - PHQ-9 Billing: Yes Source: Developed by Drs. Edmund Patel, Margret Joy, Torito Bhardwaj and colleagues, with an educational nabeel from [employer]. Thrive Questionnaire Date Thrive assessed: 08/22/23 I am a: Patient What is your living situation today?: I have a steady place to live Within the past 12 months, did the food you bought not last and you didn't have the money to get more?: Never true Within the past 12 months, did you worry whether your food would run out before you got money to buy more?: Never true Do you have trouble paying for medicines?: No Do you have trouble getting transportation to medical appointments?: No Do you have trouble paying your heating and electricity bill?: No Do you have trouble taking care of your child, family member or friend?: No Do you have trouble with day-to-day activities such as bathing, preparing meals, shopping, managing finances, etc.?: No Are you currently unemployed and looking for a job?: No Are you interested in more education?: No Please select the resources that you would like help with: None Currently or been in a relationship where the following occur: no concerns reported THRIVE Score: 0 AUDIT C Alcohol Use Questionnaire (AUDIT-C) 1. How often do you have a drink containing alcohol?: Never Total Score: 0 Score Reviewed/Action Taken: No DON-7 AMB Questionnaire DON-7 Date DON - 7 assessed: 08/22/23 Feeling nervous, anxious, or on edge: 0 = Not at all Not being able to stop or control worryin = Not at all Worrying too much about different things: 0 = Not at all Trouble relaxin = Not at all Being so restless that it is hard to sit still: 0 = Not at all Becoming easily annoyed or irritable: 0 = Not at all Feeling afraid as if something awful might happen: 0 = Not at all Total DON-7 score (0-4 normal; 5-9 mild; 10-14 moderate; 15-21 severe): 0 Source: Developed by Drs. Edmund Patel, Margret Jyo, Torito Bhardwaj and colleagues, with an educational nabeel from [employer]. DON-7 Assessment Billing DON-7 Assessment Tool: DON-7 Assessment 05742 Review of Systems Const All systems reviewed & are unremarkable except as noted in HPI and below Card Denies chest pain at rest, Denies chest pain with activity, Denies edema, Denies irregular heart rhythm, Denies claudication, Denies dyspnea, Denies dyspnea on exertion, Denies orthopnea, Denies paroxysmal nocturnal dyspnea and Denies slow heart rate Resp Denies cough, Denies dyspnea and Denies dyspnea on exertion [place]c Reports arthralgias Physical exam (Primary Care) Vital Signs: Last Vital Signs BP 162/90 H 08/22/23 13:04 BMI result Body Mass Index 40.0 Tobacco/Smoking Status: Tobacco use Status Tobacco use date assessed 08/22/23 08/22/23 13:11 Patient Tobacco Use Status Never used Tobacco 08/22/23 13:11 e-Cigarette/Vaping Use Never Used 08/22/23 13:11 PHQ-9: PHQ-9 Score PHQ-9: Total score 0 08/22/23 14:20 Depression Screening Interpretation: Negative Thrive Assessment: Date of Thrive Assessment Date Thrive assessed 08/22/23 08/22/23 13:11 Currently or been in a relationship where the following occur: no concerns reported Const Orientation/consciousness: patient oriented x3 HENMT Head: Yes normal to inspection, Yes normocephalic and Yes atraumatic Ears: external ears normal Eyes General: appearance normal, both eyes and all related structures Eyelids: Yes eyelids normal Conjunctivae: conjunctivae normal Neck Neck: Yes normal visual inspection and Yes supple Resp Effort & Inspection: normal respiratory effort Auscultation: clear to auscultation bilaterally Cardio Jugular venous distension: no JVD Rate: regular rate Rhythm: regular rhythm Heart sounds: S1 normal heart sound present and S2 normal heart sound present GI Inspection: Yes normal to inspection Palpation (GI): Soft to palpation and nontender Auscultation: normal bowel sounds Skin General skin exam: no rashes or lesions noted Neuro General: patient oriented x3 and no focal motor deficits Extrem General: Yes full ROM Psych Appearance: grossly normal Assessment and Plan Assessment & Plan (1) Encounter for physical examination: Code(s): Z00.00 - Encounter for general adult medical examination without abnormal findings Plan: Repeat in a year. (2) Morbid obesity due to excess calories: Code(s): E66.01 - Morbid (severe) obesity due to excess calories Plan Continue intermittent fasting. BMI goal is less than 30. Orders: Orders Vitamin D 25-OH Total 4 Months E55.9 - Vitamin D deficiency, unspecified Coding Level of Care Code Est Pt Prev Care 40-64y(09083) Diagnoses Encounter for physical examination Z00.00 Morbid obesity due to excess calories E66.01 Additional Codes DON-7 Assessment Billing - DON-7 Assessment Tool: DON-7 Assessment 02446 ([id number]) Time Spent (min) 35
== END 2023-08-22 13:46 | disposition home or self-care (01) ==
PROVIDERS: PCP Internal Medicine; Visit Provider Internal Medicine
DX: Z00.00 Encounter for general adult medical examination without abnormal findings (principal); E66.01 Morbid (severe) obesity due to excess calories; Z68.41 Body mass index [BMI] 40.0-44.9, adult
CPT/HCPCS: 99396

== ENCOUNTER 2024-01-09 09:48 | Outpatient (REF) | payer OTHER, SELFPAY ==
[2024-01-09 14:16] LABS: Vitamin D 25-OH Total 99.6 ng/mL (>30)
== END 2024-01-09 09:49 | disposition home or self-care (01) ==
LOC: HO.HMGCLDS 09:48
PROVIDERS: PCP Internal Medicine; Visit Provider Internal Medicine
DX: E55.9 Vitamin D deficiency, unspecified (principal)
CPT/HCPCS: 36415; 82306

== ENCOUNTER 2024-01-16 13:18 | Outpatient (AMB) | payer MEDICARE, OTHER, SELFPAY ==
--- NOTE | 2024-01-16 13:21 | MHC.PC.OV ---
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 Accompanied by: Self / Same As Patient Allergies Cephalosporins [CEPHALOSPORINS] Allergy (Intermediate, Verified 01/16/24 13:39) FLUSHING IN FACE FEVER Penicillins [PENICILLINS] Allergy (Intermediate, Verified 01/16/24 13:39) FLUSHING IN FACE, FEVER Sulfa (Sulfonamide Antibiotics) Allergy (Unknown, Verified 01/16/24 13:39) Unknown Medication List - Last Reconciled 01/16/24 by Roxane Yanes MD biotin 2,000 mcg sublingual DAILY blood pressure monitor As directed cholecalciferol (vitamin D3) 50 mcg PO DAILY glucosamine sulfate 325 mg PO DAILY ibuprofen-acetaminophen 125-250 mg (Advil Dual Action) 2 tabs PO QAM PRN multivitamin 1 tab PO DAILY [Mylanta PRN] psyllium 1 tbsp PO DAILY Tobacco use date assessed: 08/22/23 Fall risk assessment: No Falls in past year Last assessed Fall Risk: 01/16/24 Dental Screening Dental Screen Date: 08/22/23 HPI HPI Comments History of Present Illness Details This is a 63-year-old female with impaired glucose tolerance, knee osteoarthritis and obesity that comes today for follow-up on her conditions. She has been intentionally losing weight to be a better candidate for knee replacement. Will see ortho in [place] for this matter. Blood glucose will be checking the next 6 months. Denies polyuria or polydipsia. Complains of an occasional neck pain with numbness but is not a constant pain. On NSAIDs for knee osteoarthritis which relieved the pain. [facility] Medical History (Updated 01/16/24 @ 15:25 by Roxane Yanes MD) Encounter for physical examination BMI 45.0-49.9, adult Osteoarthritis of right knee Osteoarthritis of left knee Elevated blood pressure reading without diagnosis of hypertension Screen for colon cancer Obese Pseudocholinesterase deficiency Knee osteoarthritis Family history of hemochromatosis Morbid obesity due to excess calories GERD (gastroesophageal reflux disease) Left hip pain Hypercholesterolemia Ascending aortic aneurysm Hypovitaminosis D Osteoarthritis, knee Basal cell carcinoma Paget's bone disease Hypertension Surgical History H/O colonoscopy History of foot surgery H/O basal cell carcinoma excision History of tonsillectomy and adenoidectomy S/P AYANA-BSO (total abdominal hysterectomy and bilateral salpingo-oophorectomy) History of laparoscopic cholecystectomy History of appendectomy Family History Father Coronary artery disease Mother Ovarian cancer, Onset Age: 74 Maternal Aunt Breast cancer Maternal Uncle Colon cancer Hemochromatosis Social History Household Members Other:: sister Housing: House Are you a primary complex care nurse practitioner to a significant other at home: No Do you presently have visiting nurse or other home services: No Alcohol intake: never Patient Tobacco Use Status: Never used Tobacco e-Cigarette/Vaping Use: Never Used Second Hand Smoke Exposure: No service: No Current occupational status: unemployed Cognitive needs: No Hearing needs: No Vision needs: Yes Questionnaire Thrive Questionnaire Date Thrive assessed: 08/22/23 DON-7 AMB Questionnaire DON-7 Date DON - 7 assessed: 08/22/23 Source: Developed by Drs. Edmund Patel, Margret Joy, Torito Bhardwaj and colleagues, with an educational nabeel from [employer]. Review of Systems Const All systems reviewed & are unremarkable except as noted in HPI and below Card Denies chest pain at rest, Denies chest pain with activity, Denies edema, Denies irregular heart rhythm, Denies claudication, Denies dyspnea, Denies dyspnea on exertion, Denies orthopnea, Denies paroxysmal nocturnal dyspnea and Denies slow heart rate Resp Denies cough, Denies dyspnea and Denies dyspnea on exertion Physical exam (Primary Care) Vital Signs: Last Vital Signs BP 132/76 01/16/24 13:28 BMI result Body Mass Index 35.9 Tobacco/Smoking Status: Tobacco use Status Tobacco use date assessed 08/22/23 01/16/24 13:32 Patient Tobacco Use Status Never used Tobacco 01/16/24 13:32 e-Cigarette/Vaping Use Never Used 01/16/24 13:32 Thrive Assessment: Date of Thrive Assessment Date Thrive assessed 08/22/23 01/16/24 13:32 Resp Effort & Inspection: normal respiratory effort Auscultation: clear to auscultation bilaterally Cardio Jugular venous distension: no JVD Rate: regular rate Rhythm: regular rhythm Heart sounds: S1 normal heart sound present and S2 normal heart sound present Extrem General: Yes full ROM Office Procedures Flu Questionnaire Does the patient have a severe egg allergy?: No Immunizations Fluarix Triv [id number] (PF) 45 mcg (15 mcg x 3)/0.5 mL IM syringe Performing Provider: Roxane Yanes MD [place] [facility] Documented (not given) by: ZOHREH Glynn on 01/16/24 13:33 Reason Not Given: Patient Refused Coding Level of Care Code Est Pt Level 3 (56546) Complex EM visit Add On G2211 Diagnoses Knee osteoarthritis M17.10 Impaired glucose tolerance R73.02 Obesity (BMI 35.0-39.9 without comorbidity) E66.9 Time Spent (min) 19 Assessment & Plan Assessment & Plan (1) Knee osteoarthritis: Code(s): M17.10 - Unilateral primary osteoarthritis, unspecified knee Category: Medical Plan: Continue NSAIDs. Follow-up with ortho in [place]. (2) Impaired glucose tolerance: Code(s): R73.02 - Impaired glucose tolerance (oral) Category: Medical Plan: Continue low-carbohydrate diet. Repeat fasting blood glucose for next office visit. (3) Obesity (BMI 35.0-39.9 without comorbidity): Code(s): E66.9 - Obesity, unspecified Category: Medical Plan: Continue diet. BMI goal is less than 30. Orders: Orders Vitamin D 25-OH Total 7 Months E55.9 - Vitamin D deficiency, unspecified Comprehensive [place]. Panel Fast 7 Months R73.02 - Impaired glucose tolerance (oral) Lipid Panel 7 Months I10 - Essential (primary) hypertension CA-125 7 Months Z80.41 - Family history of malignant neoplasm of ovary Vitamin K1 7 Months E56.1 - Deficiency of vitamin K Influenza [id number] Immunization Today Z23 - Encounter for immunization Magnesium 7 Months E83.42 - Hypomagnesemia
[2024-01-16 13:28] VITALS: BP 132/76; BMI 35.9
== END 2024-01-16 13:59 | disposition home or self-care (01) ==
LOC: HO.HMCH 13:19
PROVIDERS: PCP Internal Medicine; Visit Provider Internal Medicine
DX: M17.10 Unilateral primary osteoarthritis, unspecified knee (principal); R73.02 Impaired glucose tolerance (oral); E66.9 Obesity, unspecified; Z68.35 Body mass index [BMI] 35.0-35.9, adult

== ENCOUNTER → 2024-01-16 13:18 | Outpatient (BNVA) | payer MEDICARE, OTHER, SELFPAY | PROVIDERS: PCP Internal Medicine; Visit Provider Internal Medicine | DX: M17.10 Unilateral primary osteoarthritis, unspecified knee (principal); R73.02 Impaired glucose tolerance (oral); E66.9 Obesity, unspecified | CPT/HCPCS: 99212 ==

== ENCOUNTER 2024-09-29 11:01 | Outpatient (REF) | payer MEDICARE, SELFPAY ==
--- OUTSIDE RECORDS SUMMARY | 2024-09-29 12:19 | XMS_ITS ---
Author Name [facility] Organization Unknown Results Test Name/Text Value Interpretation Date Range Source Result Not Detected Normal 07/03/2024 - H[facility]CT Transferrin SerPl-mCnc 251.0 mg/dL Normal 07/03/2024 200 - 360 H[facility]CT Prealb SerPl-mCnc 22.0 mg/dL Normal 07/03/2024 20 - 40 H[facility]CT Chloride SerPl-sCnc 107.0 mmol/L Normal 07/03/2024 98 - 1 07 H[facility]CT BUN/Creat SerPl 28.0 Ratio Above high normal 07/03/2024 10 - 25 H[facility]CT BUN SerPl-mCnc 14.0 mg/dL Normal 07/03/2024 8 - [address] Creat SerPl-mCnc 0.5 mg/dL Normal 07/03/2024 0.4 - 1.1 HH CCT CO2 SerPl-sCnc 26.0 mmol/L Normal 07/03/2024 22 - 33 HH CCT Potassium SerPl-sCnc 4.6 mmol/L Normal 07/03/2024 3.4 - 5 .3 HHCCT Anion Gap Bld-sCnc 10.0 Normal 07/03/2024 7 - 17 H[facility]CT Glucose SerPl-mCnc 100.0 mg/dL Above high normal 07/03/2024 65 - 99 HHCCT Calcium SerPl-mCnc 9.1 mg/dL Normal 07/03/2024 8.7 - 10.5 HHCCT Sodium SerPl-sCnc 143.0 mmol/L Normal 07/03/2024 136 - 14 5 HHCCT GFR/BSA.pred SerPlBld JDM-BFL-WzSRoh >90.0 Normal 07/03/2024 59 - HHCCT Hgb A1c MFr Bld 5.5 % Normal 07/03/2024 - 5.[address] Est. average glucose Bld gHb Est-mCnc 111.0 mg/dL Normal 07/03/2024 H[facility]CT Imm Granulocytes num Bld Auto 0.01 Thou/uL Normal 07/03/2024 0 - 0.1 HHCCT RBC num Bld Auto 4.49 Mil/uL Normal 07/03/2024 4 - 5.4 HHCCT Neutrophils num Bld Auto 2.27 Thou/uL Normal 07/03/2024 2 - 7.5 HHCCT Hgb Bld-mCnc 14.0 g/dL Normal 07/03/2024 11.7 - 15.7 HHCC T Hct VFr Bld Auto 41.6 % Normal 07/03/2024 35 - 47 HH CCT MCH RBC Qn Auto 31.2 pg Above high normal 07/03/2024 27 - 31 HHCCT PMV Bld Auto 10.4 fL Normal 07/03/2024 7.5 - 12.5 HHCCT Monocytes/leuk NFr Bld Auto 9.6 % Normal 07/03/2024 HHCCT Basophils num Bld Auto 0.05 Thou/uL Normal 07/03/2024 0 - 0.2 HHCCT Lymphocytes num Bld Auto 1.53 Thou/uL Normal 07/03/2024 1.5 - 4.5 HHCCT Lymphocytes/leuk NFr Bld Auto 34.9 % Normal 07/03/2024 H[facility]CT Eosinophil num Bld Auto 0.11 Thou/uL Normal 07/03/2024 0 - 0.7 H[facility]CT Platelet num Bld Auto 198.0 Thou/uL Normal 07/03/2024 150 - 450 HHCCT WBC num Bld Auto 4.4 Thou/uL Normal 07/03/2024 4 - 11 HHCCT RDW RBC Auto-Rto 13.1 % Normal 07/03/2024 11.5 - 14.5 HHCCT MCV RBC Auto 93.0 fL Normal 07/03/2024 80 - 100 H[facility]CT Imm Granulocytes/leuk NFr Bld Auto 0.2 % Normal 07/03/2024 HHCCT Basophils/leuk NFr Bld Auto 1.1 % Normal 07/03/2024 HHCCT Eosinophil/leuk NFr Bld Auto 2.5 % Normal 07/03/2024 HHCCT MCHC RBC Auto-mCnc 33.7 g/dL Normal 07/03/2024 30 - 36 HHCCT Monocytes num Bld Auto 0.42 Thou/uL Normal 07/03/2024 0.2 - 1.5 HHCCT Neutrophils/leuk NFr Bld Auto 51.7 % Normal 07/03/2024 HHCCT Result Not Detected Normal 02/08/2024 - HHCCT Prealb SerPl-mCnc 16.0 mg/dL Below low normal 02/08/2024 20 - 40 HHCCT Transferrin SerPl-mCnc 222.0 mg/dL Normal 02/08/2024 200 - 360 HHCCT Chloride SerPl-sCnc 109.0 mmol/L Above high normal 98 - 107 HHCCT Anion Gap Bld-sCnc 9.0 Normal 02/08/2024 7 - 17 HHCCT BUN SerPl-mCnc 11.0 mg/dL Normal 02/08/2024 8 - [address] Sodium SerPl-sCnc 143.0 mmol/L Normal 02/08/2024 136 - 14 5 HHCCT Creat SerPl-mCnc 0.5 mg/dL Normal 02/08/2024 0.4 - 1.1 HH CCT Glucose SerPl-mCnc 94.0 mg/dL Normal 02/08/2024 65 - 99 HHCCT Calcium SerPl-mCnc 9.1 mg/dL Normal 02/08/2024 8.7 - 10.5 HHCCT CO2 SerPl-sCnc 25.0 mmol/L Normal 02/08/2024 22 - 33 HH CCT GFR/BSA.pred SerPlBld BMP-GMB-XkYQsc >90.0 Normal 02/08/2024 59 - HHCCT BUN/Creat SerPl 22.0 Ratio Normal 02/08/2024 10 - 25 HH CCT Potassium SerPl-sCnc 3.9 mmol/L Normal 02/08/2024 3.4 - 5 .3 HHCCT Hgb A1c MFr Bld 5.2 % Normal 02/08/2024 - 5.[address] Est. average glucose Bld gHb Est-mCnc 103.0 mg/dL Normal 02/08/2024 H[facility]CT Imm Granulocytes/leuk NFr Bld Auto 0.2 % Normal 02/07/2024 H[facility]CT Platelet num Bld Auto 210.0 Thou/uL Normal 02/07/2024 150 - 450 HHCCT Hgb Bld-mCnc 13.4 g/dL Normal 02/07/2024 11.7 - 15.7 HHCC T Hct VFr Bld Auto 40.8 % Normal 02/07/2024 35 - 47 HH CCT Neutrophils num Bld Auto 3.4 Thou/uL Normal 02/07/2024 2 - 7.5 HHCCT Basophils/leuk NFr Bld Auto 0.5 % Normal 02/07/2024 HHCCT MCH RBC Qn Auto 31.0 pg Normal 02/07/2024 27 - [address] RDW RBC Auto-Rto 12.9 % Normal 02/07/2024 11.5 - 14.5 HHCCT Lymphocytes/leuk NFr Bld Auto 28.5 % Normal 02/07/2024 HHCCT MCV RBC Auto 94.0 fL Normal 02/07/2024 80 - 100 HHCCT MCHC RBC Auto-mCnc 32.8 g/dL Normal 02/07/2024 30 - 36 HHCCT Eosinophil num Bld Auto 0.14 Thou/uL Normal 02/07/2024 0 - 0.7 HHCCT WBC num Bld Auto 5.6 Thou/uL Normal 02/07/2024 4 - 11 HHCCT Monocytes num Bld Auto 0.39 Thou/uL Normal 02/07/2024 0.2 - 1.5 HHCCT PMV Bld Auto 10.9 fL Normal 02/07/2024 7.5 - 12.5 HHCCT Basophils num Bld Auto 0.03 Thou/uL Normal 02/07/2024 0 - 0.2 HHCCT Eosinophil/leuk NFr Bld Auto 2.5 % Normal 02/07/2024 HHCCT Monocytes/leuk NFr Bld Auto 7.0 % Normal 02/07/2024 HHCCT Imm Granulocytes num Bld Auto 0.01 Thou/uL Normal 02/07/2024 0 - 0.1 HHCCT Neutrophils/leuk NFr Bld Auto 61.3 % Normal 02/07/2024 HHCCT RBC num Bld Auto 4.32 Mil/uL Normal 02/07/2024 4 - 5.4 HHCCT Lymphocytes num Bld Auto 1.58 Thou/uL Normal 02/07/2024 1.5 - 4.5 HHCCT History of Medication Use Medication Directions Dispensed Refills Start Date End Date Stat minocycline (MINOCIN) 100 MG capsule Take 1 capsule (100 mg total) by mouth 2 (two) times a day. 07/28/2024 08/05/2024 active minocycline (MINOCIN) 100 MG capsule Take 1 capsule (100 mg total) by mouth 2 (two) times a day. 07/28/2024 08/05/2024 active acetaminophen (TYLENOL) 325 MG tablet Take 3 tablets (975 mg total) by mouth 4 times daily (every 6 hours) as needed for mild pain. 07/28/2024 active diphenhydrAMINE (BENADRYL) 25 mg capsule Take 1 capsule (25 mg total) by mouth 4 times daily (every 6 hours) as needed for itching (Take as needed for an associated rash from Minocycline). 07/28/2024 active diphenhydrAMINE (BENADRYL) 25 mg capsule Take 1 capsule (25 mg total) by mouth 4 times daily (every 6 hours) as needed for itching (Take as needed for an associated rash from Minocycline). 07/28/2024 active ondansetron (ZOFRAN-ODT) 4 MG disintegrating tablet Take 1 tablet (4 mg total) by mouth 3 times daily (every 8 hours) as needed for nausea or vomiting. Place tablet on tongue to dissolve. 07/28/2024 active ondansetron (ZOFRAN-ODT) 4 MG disintegrating tablet Take 1 tablet (4 mg total) by mouth 3 times daily (every 8 hours) as needed for nausea or vomiting. Place tablet on tongue to dissolve. 07/28/2024 active PANTOprazole (PROTONIX) 40 MG EC tablet Take 1 tablet (40 mg total) by mouth every morning before breakfast. 07/28/2024 active senna-docusate (SENNA-S) 8.6-50 MG Take 1 tablet by mouth daily. 07/28/2024 active clindamycin (CLEOCIN) 300 MG capsule Take 2 tablets 1 hour prior to dentist appointment 05/12/2024 active acetaminophen (TYLENOL) 500 MG tablet Take 2 tablets (1,000 mg total) by mouth every 8 (eight) hours around the clock. After four days, take 1,000 PO q8 hours as needed for pain. 02/25/2024 03/27/2024 active methocarbamol (ROBAXIN) 750 MG tablet Take 1 tablet (750 mg total) by mouth 4 (four) times a day as needed for muscle spasms. 02/25/2024 03/27/2024 active polyethylene glycol (miraLAx) 17 g packet Take 1 packet (17 g total) by mouth daily. 02/25/2024 03/27/2024 active aspirin enteric coated (ECOTRIN LOW STRENGTH) 81 MG EC tablet Take 1 tablet (81 mg total) by mouth 2 (two) times a day. 02/25/2024 active Glucosamine-Chondroiti n 750 & 400 MG Misc Take 1 tablet by mouth every morning. active No known medications No known medications active POTASSIUM GLUCONATE ER PO Take 550 mg by mouth daily. active Allergies Allergen Reaction Severity Comment Documented Date Source Statu s MINOCYCLINE RASH/DERMATITI S 06/25/2024 H[facility] active SULFA ANTIBIOTICS RASH/DERMATITI S Facial flushing 2024 H[facility]CT active CEFAZOLIN RASH/DERMATITI S Facial flushing H[facility]CT CEPHALOSPORINS RASH/DERMATITI S Facial flushing HHCCT CLINDAMYCIN GI INTOLERANCE/NA USEA/VOMITING Bloody stools,Took for dental prophy HHCCT PENICILLIN G RASH/DERMATITI S Facial flushing HHCCT Problems Problem Status Onset Date Problem Type Date of Resolution Source Status post total left knee replacement active 2024-06-24 ProblemAct H[facility] Arthritis of right knee active 2024-07-27 ProblemAct H[facility]CT Arthritis of left knee active 2024-02-24 ProblemAct H[facility]CT Paget's bone disease active ProblemAct HHCCT Status post total right knee replacement active EncounterDiagnosisAct HH CCT Pseudocholinesterase deficiency active 2024-06-25 ProblemAct HHCCT Encounters Encounter Type Encounter Reason Primary Diagnosis Location Date Ambulatory [facility] 08/20/2024 Ambulatory Presence of right artificial knee joint Presence of right artificial knee joint [facility] 08/20/2024 Ambulatory Unilateral primary osteoarthritis, right knee Unilateral primary osteoarthritis, right knee [facility] 07/27/2024 Ambulatory Encounter for other preprocedural examination Encounter for other preprocedural examination [facility] 07/03/2024 Ambulatory [facility] 06/24/2024 Ambulatory Presence of left artificial knee joint Presence of left artificial knee joint [facility] 06/24/2024 Ambulatory [facility] 03/18/2024 Ambulatory Presence of left artificial knee joint Presence of left artificial knee joint [facility] 03/18/2024 Ambulatory Unilateral primary osteoarthritis, left knee Unilateral primary osteoarthritis, left knee [facility] 02/24/2024 Ambulatory CREATE Bilateral primar y osteoarthritis of knee [facility], [facility] 02/13/2024 Ambulatory Encounter for other preprocedural examination Encounter for other preprocedural examination [facility] 02/07/2024 Ambulatory [facility] 01/29/2024 Ambulatory Bilateral primary osteoarthritis of knee Bilateral primary osteoarthritis of knee [facility] 01/29/2024 Care Team Organization Name Specialty Phone Email Start Date End Da te [facility] RONNIE REED [facility] 06/27/2024 09/18/2024 [facility] 2024 09/18/2024 [facility], [facility] 01/30/2024 [facility] GEOVANNY RONNIE REED Primary [facility] 01/30/2024 [facility] NO PCP Primary Care 01/29/2024 [facility] 12/13/2023
--- OUTSIDE RECORDS SUMMARY | 2024-09-29 12:19 | XMS_ITS | Patient Health Record ---
[facility] Address [address] [place] [address] Care Team Providers Care Fisher Seal Name Role Phone Aris MCCLELLAN, Roxane Primary Care Provider Unavail able Jose Ellis Unavailable [phone] Allergies Allergen (clinical drug ingredient) Drug/Non Drug Allergy documented on EMR Reaction Allergy Type Onset Date Status Ceftin Unknown Drug Allergy Active ciprofloxacin Cipro Unknown Drug Allergy Act jaylen EPINEPHrine Unknown Drug Allergy Activ e Keflex Unknown Drug Allergy Active Levaquin Unknown Drug Allergy Active Penicillin Unknown Drug Allergy Active Substance with sulfonamide structure and antibacterial mechanism of action (substance) Sulfa Antibiotics Unknown Drug Allergy Active Reason For Referral No Information Medications Medication SIG (Take, Route, Frequency, Duration) Notes Start Date End Date Status Aleve Pnr Active Multi Vitamin/Minerals Active Biotin Active Ibuprofen 800 MG 1 tablet every Orall y Three times a day; Duration: 30 days 02/17/2015 Not-Taking Physical Therapy . . .post-op from tail or bunion and hammertoe surgery; goal for edema and pain reduction 2-3x/week; Duration: 3-4 weeks 2015 Not-Taking Physical Therapy . . . 2-3x/week; Durat ion: 3-4 weeks 04/04/2015 Not-Taking OxyCONTIN Not-Taking Ibuprofen 800 MG 1 tablet Orally Thre e times a day; Duration: 30 day(s) 12/16/2014 Not-Taking Nabumetone 500 MG 1 tablet Orally Twic e a day; Duration: 30 day(s) 01/07/2015 Not-Ray ing Glucosamine Not-Taki ng Social History Tobacco Use: Social History Observation Description Date Details (start date - stop date) Never Smoker NA - NA Tobacco Use/Smoking Question Answer Notes Are you a: nonsmoker Additional Findings: Tobacco Non-User Current no n-smoker Alcohol Screen Question Answer Notes Did you have a drink containing alcohol in the p ast year? No Points 0 Interpretation Negative Tobacco use other than smoking: Question Answer Notes Are you an other tobacco user? No Problems Problem Type SNOMED Code ICD Code Onset Dates Problem Status W/U Status Risk Notes Problem Pain in right foot (74778665778 9107) Pain in right foot (M79.671) Active confirmed Problem Pain in left foot (93655202906 9107) Pain in left foot (M79.672) Active confirmed Problem Non-pressure chronic ulcer of other part of right foot limited to breakdown of skin (L97.511) Active confirmed Problem Tailor's bunion of right foot ([id number] 94597) Tailor's bunion of right foot (M20.5X1) Active confirmed Problem Tailor's bunion of left foot (11231529391 04056) Tailor's bunion of left foot (M20.5X2) Active confirmed Plan Of Treatment Pending Test Test Name Order Date X ray : Foot, left 2V 04/07/2014 X ray : Foot, left 2V 01/17/2015 X ray : Foot, left 2V 2015 X ray : Foot, left 2V 02/10/2015 X ray : Foot, left 2V 03/21/2015 X ray : Foot, left 2V 04/04/2015 X ray : Foot, right 2V 02/10/2015 X ray : Foot, right 2V 2015 X ray : Foot, right 2V 04/07/2014 X ray : Foot, right 2V 12/27/2014 X ray : Foot, right 2V 01/17/2015 *Liver Function Test (LFT) 07/22/2014 X ray : Foot, right 3V 01/06/2015 15880- Debride <25 sq cm 04/07/2014 70644- Debride <25 sq cm 07/22/2014 Insurance Providers Payer Name Payer Address Payer Phone Subscriber Number Group Number Insured Name Patient Relationship to Insured Coverage Start Date Coverage End Date [employer] [id number] [place] [employer] [id number] AngelyBouchra Self - patient is the insured Medical (General) History Medical History History ICD Code Arthritis Hypertension Mumps Chicken pox Back,Hip,and Knee pain Surgical History Surgery Date(Month/Year) appendectomy 1983 hysterectomy 2011 cholecystectomy Ht/Tailor Bun Right 12/23/2014 removal of hardware left 03/17/2015 gall bladder 1988 tonsillectomy 1964
--- OUTSIDE RECORDS SUMMARY | 2024-09-29 12:19 | XMS_ITS | Clinical Summary ---
Author Organization [facility] Address [address] [place] [address] Care Team Providers Care Slate Mixer Name Role Phone Roxane Anthony MD Primary Care Provider [phone] Yves Rodriguez MD Unavailable [phone] System, Provider Not In Unavailable Unavaila ble Allergies Active Allergy Reactions Criticality Noted Date Comments Cephalosporins Rash/Dermatitis Low 2024 Facial flushing Clindamycin GI Intolerance/Nausea/Vomi ting Low 06/25/2024 Took for dental prophy Bloody stools Cefazolin Rash/Dermatitis Low 2024 Facial flushing Minocycline Rash/Dermatitis Low 06/25/2024 Penicillin G Rash/Dermatitis Low 2024 Facial flushing Sulfa Antibiotics Rash/Dermatitis Low 2024 Facial flushing Medications Biotin 1 MG Cap Take 1 tablet by mouth daily. Active Multiple Vitamin (multivitamin) capsule Take 1 capsule by mouth. Active MISC MEDICATION/NEUTRAC EUTICAL Take 1 tablet by mouth daily. Nutritional yeast weekly Warren 3 Psyllium Husk K2 Electrolytes when fasting Na K Mag Chloride Zinc Tumeric Active POTASSIUM GLUCONATE ER PO Take 550 mg by mouth daily. Active MAGNESIUM GLYCINATE PO Take 1 tablet by mouth every morning. Active clindamycin (CLEOCIN) 300 MG capsuleIndications :Status post total left knee replacement Take 2 tablets 1 hour prior to dentist appointment 2 capsule 2 05/13/19 25 026 Active Menaquinone-7 (K2 PO) Take 1 tablet by mouth daily. Active aspirin enteric coated (ECOTRIN LOW STRENGTH) 81 MG EC tabletIndications: Arthritis of right knee Take 1 tablet (81 mg total) by mouth 2 (two) times a day. No other aspirin products while in use. Resume aspirin products after completion. 56 tablet 07/29/19 25 Active ondansetron (ZOFRAN-ODT) 4 MG disintegrating tabletIndications: Arthritis of right knee Take 1 tablet (4 mg total) by mouth 3 times daily (every 8 hours) as needed for nausea or vomiting. Place tablet on tongue to dissolve. 20 tablet 07/29/19 25 Active oxyCODONE (ROXICODONE) 5 MG immediate release tabletIndications: Arthritis of right knee Take 1-2 tablets (5-10 mg total) by mouth every 4 (four) hours as needed for moderate pain or severe pain. Max Daily Amount: 60 mg 42 tablet 07/29/19 25 Active polyethylene glycol (miraLAx) 17 g packetIndications: Arthritis of right knee Take 1 packet (17 g total) by mouth daily. 30 packet 07/29/19 25 Active PANTOprazole (PROTONIX) 40 MG EC tabletIndications: Arthritis of right knee Take 1 tablet (40 mg total) by mouth every morning before breakfast. 14 tablet 07/29/19 25 Active methocarbamol (ROBAXIN) 750 MG tabletIndications: Arthritis of right knee Take 1 tablet (750 mg total) by mouth 4 (four) times a day as needed for muscle spasms. 25 tablet 07/29/19 25 Active senna-docusate (SENNA-S) 8.6-50 MGIndications:Arth ritis of right knee Take 1 tablet by mouth daily. 30 tablet 07/29/19 25 Active acetaminophen (TYLENOL) 325 MG tabletIndications: Arthritis of right knee Take 3 tablets (975 mg total) by mouth 4 times daily (every 6 hours) as needed for mild pain. 168 tablet 07/29/19 25 Active diphenhydrAMINE (BENADRYL) 25 mg capsuleIndications :Arthritis of right knee Take 1 capsule (25 mg total) by mouth 4 times daily (every 6 hours) as needed for itching (Take as needed for an associated rash from Minocycline). 15 capsule 07/29/19 25 Active meloxicam (MOBIC) 15 MG tabletIndications: Status post total right knee replacement Take 1 tablet (15 mg total) by mouth daily as needed (pain). 60 tablet 07/30/19 25 Active methocarbamol (ROBAXIN) 750 MG tabletIndications: Aftercare following joint replacement surgery, unspecified joint Take 1 tablet (750 mg total) by mouth 4 (four) times a day as needed for muscle spasms. 60 tablet 08/07/19 25 Active Active Problems Problem Noted Date Diagnosed Date Arthritis of right knee 07/27/2024 Pseudocholinesterase deficiency 06/25/2024 Assessment & Plan (06/25/2024 7:24 AM EDT): 0.7 Status post total left knee replacement 06/25/19 25 Arthritis of left knee 02/24/2024 Primary osteoarthritis of left knee 02/07/2024 Assessment & Plan (02/07/2024 8:45 AM EST): Plan for left knee replacement with Dr. Rodriguez on 02/24/24. Paget's bone disease Assessment & Plan (06/25/2024 7:25 AM EDT): Diagnosed 2015. Treated in remote past with Reclast. ? remission Assessment & Plan (02/07/2024 8:48 AM EST): Follows with Rheum in [place]. Encounters Date Type Department Care Team Description 09/01/2024 Scanned Document Orthopedic [address] [phone] Yves Rodriguez MD 08/20/2024 1:10 PM EDT [facility]illary [facility] [address] [phone] 08/20/2024 1:00 PM EDT Office Visit Orthopedic [address] [phone] Rupinder Nazario, JOSE Status post total right knee replacement (Primary Dx) 08/07/2024 Scanned Document Orthopedic [address] [phone] Yves Rodriguez MD 08/07/2024 Refill [facility] [address] [place] [phone] Rupinder Nazario, COLLECTION SYSTEMS ADMINISTRATOR Status post total right knee replacement 08/06/2024 Orders Only [facility] [address] [place] [phone] Rupinder Nazario, COLLECTION SYSTEMS ADMINISTRATOR Aftercare following joint replacement surgery, unspecified joint (Primary Dx) 08/06/2024 Telephone [facility] [address] [place] [address] Siri Najera, TASIA 08/05/2024 Telephone [facility] [address] [place] [address] Siri Najera, electrical tester Only 08/04/2024 Telephone [facility] [place] [address] [facility] 2nd [place] [address] [place] [address] Yves Rodriguez MD 07/29/2024 Orders Only [facility] [address] [place] [phone] Rupinder Nazario, COLLECTION SYSTEMS ADMINISTRATOR Status post total right knee replacement (Primary Dx) 07/27/2024 8:11 AM EDT Anesthesia Event [facility] [place] [address] [phone] Dutch Pineda MD Teti, Scott, CRNA 07/27/2024 8:00 AM EDT - 07/27/2024 10:00 AM EDT Surgery [facility] [place] at [address] [phone] Yves Rodriguez MD ARTHROPLASTY TOTAL KNEE 07/27/2024 5:49 AM EDT - 07/28/2024 11:42 AM EDT Hospital Encounter [facility] [address] [place] [address] Yves Rodriguez MD Arthritis of right knee (Primary Dx) Discharge Disposition: Home with Health Care Services 07/27/2024 Travel 07/08/2024 Orders Only [facility] [address] [phone] Yves Rodriguez MD S/P total knee arthroplasty, right (Primary Dx) 07/03/2024 11:00 AM EDT Pre-Admission Testing [facility] [place] [address] [place] [address] 2[address] [place] [address] [place] [address] Jess Haas APRN Preop examination (Primary Dx); Primary osteoarthritis of right knee; Pseudocholinesterase deficiency; Paget's bone disease; Alteration in nutrition; Morbid obesity (HCC); Adverse effect of cephalosporin, initial encounter 07/03/2024 Travel from Last 3 Months Social History Tobacco Use Types Packs/Day Years Used Date Smoking Tobacco: Never Smokeless Tobacco: Never Tobacco Cessation:Counseling Given: Not Answered Alcohol Use Standard Drinks/Week Comments Never 0 (1 standard drink = 0.6 oz pur e alcohol) AUDIT-C Answer Date Recorded Q1: How often do you have a drink containing alcohol? Never 07/27/2024 Q2: How many drinks containi ng alcohol do you have on a typical day when you are drinking? Patient does not drink Q3: How often do you have si x or more drinks on one occasion? Never 07/27/2024 Comments Unknown Sex and Gender Information Value Date Recorded Sex Assigned at Female 02/05/2024 2:58 PM EST Legal Sex Female 6:37 PM EST Gender Identity Female 02/05/2024 2:58 PM EST Sexual Orientation Heterosexual (straight) 02/04 2:58 PM EST Last Filed Vital Signs Vital Sign Reading Time Taken Comments Blood Pressure 135/62 07/28/2024 8:36 AM EDT Pulse 64 07/28/2024 8:36 AM EDT Temperature 36.2 C (97.2 F) 07/28/2024 8:36 AM EDT Respiratory Rate 18 07/28/2024 8:36 AM EDT Oxygen Saturation 98% 07/28/2024 8:36 AM EDT Inhaled Oxygen Concentration - - Weight 108 kg (239 lb) 07/27/2024 11:23 AM EDT Height 154.9 cm (5' 1 ) 07/27/2024 11:23 AM EDT Body Mass Index 45.16 07/27/2024 11:23 AM EDT Plan of Treatment Upcoming Encounters Date Type Department Care Team (Late st Contact Info) Description 12/03/2024 10:30 AM EDT [facility] Visit [facility] [address] [phone] Yves Rodriguez MD 31 [facility] [address] [place] [address] Health Maintenance Due Date Last Done Comments Hepatitis C Virus Screening 1960 HIV Screening 02/01/1972 DTaP/Tdap/Td Vaccines (1 - Tdap) 1978 Pap Smear (Ages 21-65) 02/01/1980 Mammogram 1999 Colonoscopy 02/01/2004 Pneumococcal Vaccines 50+ (1 of 1 - PCV) 2009 Zoster (Shingles) Vaccine (1 of 2) 2009 RSV Vaccine 60 years and older and Patients (1 - Risk 60-74 years 1-dose series) 2019 COVID-19 Vaccine ( - 2023-2 5 season) 2023 03/29/2021, 08/19/2020, 07/29/2020 DXA Bone Density (Females,Ages 65 and older) 02/01/2024 Influenza Vaccine 10/09/2024 Hepatitis B Vaccines Aged Out No long er eligible based on patient's age to complete this topic Medical Devices Implanted Type Area Vibrator Operator Device Identifier Shelf Expiration Date Model / Serial / Lot 6191-1-001 Cement Bone Smpx P Radopq Fd Sterl - [id number] Implanted:Qt y: 1 on 02/24/2024 by Yves Rodriguez MD at [facility] Cement Left: Knee [employer] [id number] 07/08/2025 6191--[id number] / / [id number]--[id number] Cement Bone Smpx P Radopq Fd Sterl - [id number] Implanted:Qt y: 1 on 02/24/2024 by Yves Rodriguez MD at [facility] Cement Left: Knee [employer] [id number] 07/08/2025 6191- / / [id number] Cement Bone Smpx P Radopq Fd Sterl - [id number] Implanted:Qt y: 1 on 07/27/2024 by Yves Rodriguez MD at [facility] Cement Right: Knee [employer] [id number] 05/08/20266190- / / [id number] Cement Bone Smpx P Radopq Fd Sterl - [id number] Implanted:Qt y: 1 on 07/27/2024 by Yves Rodriguez MD at [facility] Cement Right: Knee [employer] [id number] 05/08/2026 / / [id number] Component Patellar 32mm Rsrfc Susy 2 Knee - [id number] Implanted:Qt y: 1 on 02/24/2024 by Yves Rodriguez MD at [facility] Joint Prosthesis Left: Knee [employer] - DIV S [id number] 01/16/2033 [id number] / / [id number] Component Femoral 5 John Paul Knee Left Posterior Stab Cement - [id number] Implanted:Qt y: 1 on 02/24/2024 by Yves Rodriguez MD at [facility] Joint Prosthesis Left: Knee [employer] DIV S [id number] 08/19/2033 [id number] / / [id number] Baseplate Tibial Legion 3 Knee Left Cement Male Taper Ti - [id number] Implanted:Qt y: 1 on 02/24/2024 by Yves Rodriguez MD at [facility] Joint Prosthesis Left: Knee [employer] DIV S [id number] 08/05/2033 [id number] / / [id number] Insert Articular 3-4 13mm Knee Posterior Stab High Flxn Xlpe - [id number] Implanted:Qt y: 1 on 02/24/2024 by Yves Rodriguez MD at [facility] Joint Prosthesis Left: Knee [employer] DIV S [id number] 08/07/2033 [id number] / / [id number] Component Patellar Oval 32mm Rsrfc Susy 2 Knee - [id number] Implanted:Qt y: 1 on 07/27/2024 by Yves Rodriguez MD at [facility] Joint Prosthesis Right: Knee [employer] DIV S [id number] 02/11/2034 [id number] / / [id number] Baseplate Tibial Legion 3 Knee Right Cement Male Taper Ti - [id number] Implanted:Qt y: 1 on 07/27/2024 by Yves Rodriguez MD at [facility] Joint Prosthesis Right: Knee [employer] DIV S [id number] 07/11/2033 [id number] / / [id number] Insert Articular 3-4 11mm Knee Posterior Stab High Flxn Xlpe - [id number] Implanted:Qt y: 1 on 07/27/2024 by Yves Rodriguez MD at [facility] Joint Prosthesis Right: Knee [employer] DIV S [id number] 09/15/2033 [id number] / / [id number] Component Femoral 4 Knee Right Posterior Stab Cement Legion - [id number] Implanted:Qt y: 1 on 07/27/2024 by Yves Rodriguez MD at [facility] Joint Prosthesis Right: Knee [employer] DIV S [id number] 06/03/2033 [id number] / / [id number] Procedures Procedure Name Priority Date/Time Associated Diagnosis Comments XR KNEE 3 VIEWS-RIGHT Routine 08/20/2024 1:17 PM EDT Status post total right knee replacement ANES BLOCK - LOWER EXTREMITY Routine 07/27/2024 2:08 PM EDT ANES BLOCK - SPINAL Routine 07/27/2024 8 :34 AM EDT GA ARTHRP KNE CONDYLE&PLATU MEDIAL&LAT COMPARTMENTS 07/27/2024 7:56 AM EDT Primary osteoarthritis of right knee Special Needs SPINAL, REGIONAL BLOCK, PA ASSIST- RUPINDER NAZARIO, TKA, CLEMONS AND NEPHEW, LEGION/ GEINII COBALT CHROME. TRANSFERRIN Routine 07/03/2024 10:29 AM EDT Preop examination Primary osteoarthritis of right knee Pseudocholinesterase deficiency Paget's bone disease Alteration in nutrition PREALBUMIN Routine 07/03/2024 10:29 AM EDT Preop examination Primary osteoarthritis of right knee Pseudocholinesterase deficiency Paget's bone disease HEMOGLOBIN A1C WITH ESTIMATED AVERAGE GLUCOSE Routine 07/03/2024 10:29 AM EDT Preop examination Primary osteoarthritis of right knee Pseudocholinesterase deficiency Paget's bone disease BASIC METABOLIC PANEL Routine 07/03/2024 10:29 AM EDT Preop examination Primary osteoarthritis of right knee Pseudocholinesterase deficiency Paget's bone disease COMPLETE BLOOD COUNT, WITH DIFFERENTIAL Routine 07/03/2024 10:29 AM EDT Preop examination Primary osteoarthritis of right knee Pseudocholinesterase deficiency Paget's bone disease NASAL MRSA SCREEN, PCR Routine 07/03/2024 10:29 AM EDT Preop examination Primary osteoarthritis of right knee Pseudocholinesterase deficiency Paget's bone disease from Last 3 Months Results * XR Knee 3 views-Right (08/20/2024 1:17 PM EDT) Narrative OA - 08/20/2024 1:18 PM EDT This exam was performed in office at [facility] and images reviewed by orthopedic provider. Any findings are documented within ambulatory encounter note on date of service. us Rupinder Nazario COLLECTION SYSTEMS ADMINISTRATOR IMG DIAGNOSTIC IMAGING ORDERA BLES Final Result OAH * Block - Lower Extremity (07/27/2024 2:08 PM EDT) Marcel Frias MD - 07/27/2024 2:08 PM EDT Marcel Omalley MD 07/27/2024 2:08 PM Anesthesia Procedure Note - Lower Extremity Block Patient Name: Bouchra Au : 1960 Patient location: pre-op Reason for block: post-op pain management Procedure diagnosis: Osteoarthritis, knee Marcel Omalley MD Chart Verification ID band applied and present Patient ID verified via arm band, verbally with patient. H&P verified: Yes Pre-op test results in chart Consents confirmed: operative, informed and anesthesia Nursing assessment complete: yes Anesthesia questionnaire complete: yes Procedure Verification/TIMEOUT Correct procedure: yes Correct patient position: yes Correct laterality: yes Correct site: yes Site/side marked: yes Sterility reviewed: yes Special equipment or implants: yes Safety precautions discussed with procedural staff: yes Preanesthetic Checklist Monitors and equipment checked Patient pre-procedure mental status: awake The patient was sedated prior to procedure. Patient state at time: moderate Patient Preprocedure Preparation Skin prep: 2% chlorhexidine-completely dried prior to procedure Hand hygeine performed prior to needle/catheter insertion Sterile barriers in place: Cap, gloves and mask Procedure Details Block A: iPACK (posterior capsule) - single-shot technique Short-bevel needle, 22 g, 80 mm Laterality right Block B: adductor canal - single-shot Short-bevel needle, 22 g, 80 mm Laterality right Block C: obturator nerve (anterior & posterior branch obturator) - single-shot Short-bevel needle,22 g, 80 mm Laterality right Block D: lateral femoral cutaneous nerve - single-shot short-bevel needle, 22 g, 80 mm Laterality right Technique(s): ultrasound guidance and nerve stimulator Outcomes Result: successful block Outcome: block complete Patient tolerated procedure well. Additional Comments: Nerve block requested by surgeon for post-op analgesia. Pre-block timeout performed. Meaningful patient verbal communication maintained throughout the procedure. Posterior capsule (IPACK) - USN guided medial to lateral approach, appropriate local anesthetic spread pattern between popliteal artery and femur. Needle tip visualized throughout and not advanced lateral to popliteal vasculature. No USN evidence of perineural spread. Adductor canal block - USN guided mid-thigh approach at the beginning of the adductor canal identified by the confluence of the sartorius and adductor longus muscles medial to the superficial femoral artery. USN transducer moved laterally to the superficial femoral artery while maintaining the same level on the thigh. Needle advanced in plane under continuous ultrasound guidance of needle and needle tip with nerve stimulation. Nerve to vastus medialis identified via ultrasound and needle advanced until a stimulation was elicited with a nerve stimulator to confirm its identity. Needle then withdrawn until stimulation no longer occurs and keeping needle proximal to nerve but not intraneuronal and local anesthetic injected with an appropriate subsartorial spread pattern. No nerve swelling noted post-injection, no pain or paresthesia reported by patient. Immediately after identifying and injecting local around the vastus medialis nerve, the needle withdrawn and then advanced more superficially while still stimulating to avoid penetration of the vastus medialis nerve under direct ultrasound visualization of the needle tip. Needle advanced lateral to artery and local anesthetic injected under low pressure avoiding intraneuronal injection of the saphenous nerve. No nerve swelling noted post-injection, no pain or paresthesia reported by patient. Obturator - USN guided block of both anterior & posterior division of the nerve in the planes between adductor longus/brevis and adductor brevis/johann, respectively. Needle advanced under continuous in-plane ultrasound visualization, visualizing the needle tip at all times, low pressure injection with 10ml syringe, stayed proximal to nerves without penetrating them, nerve stimulation used to confirm the ultrasound image of the nerve, and needle withdrawn slightly to ensure that the needle was not intraneuronal and local injected. No nerve swelling noted post-injection, no pain or paresthesia reported by patient, who was communicative throughout the procedure. Lateral femoral cutaneous nerve block - USN guided identification of lateral femoral cutaneous nerve superficial to and lateral to sartorius muscle. Nerve confirmed with an twitch monitor eliciting a tapping sensation in the lateral thigh and then withdrawn to avoid an intraneuronal injection. Needle advanced under direct in plane ultrasound visualization, low pressure injection with 10ml syringe, stayed proximal to nerve without penetrating it, no paresthesias, no nerve swelling noted after injection. All blocks administered with low pressure, incremental injection with 10 mL syringe. Negative aspiration noted every 3-5mL. us Dutch Pineda MD [place] ANESTHESIA Final Result * Block - Spinal (07/27/2024 8:34 AM EDT) Montana Tolentino CRNA - 07/27/2024 8:34 AM EDT Montana Rico CRNA 07/27/2024 8:35 AM Anesthesia Procedure Note - Spinal Block Patient Name: Bouchra Au : 1960 Patient location: OR Reason for block: primary anesthetic Procedure diagnosis: Osteoarthritis Spinal Procedure Start Time: 07/27/2024 8:18 AM Spinal Procedure End Time: 07/27/2024 8:20 AM Performed by: Resident/DIRECTOR BLOOD BANK MD Montana Mar CRNA Chart Verification ID band applied and present Patient ID verified via arm band, verbally with patient. H&P verified: Yes Pre-op test results in chart Consents confirmed: operative and anesthesia Nursing assessment complete: yes Anesthesia questionnaire complete: yes Procedure Verification/TIMEOUT Correct procedure: yes Correct patient position: yes Correct laterality: yes Correct site: yes Site/side marked: yes Sterility reviewed: yes Safety precautions discussed with procedural staff: yes Preanesthetic Checklist monitors and equipment checked. Patient's pre-procedure mental status: awake The patient was sedated prior to procedure. Current level of sedation: moderate Procedure Preparation Skin prep: 2% chlorhexidine - completely dried prior to procedure Hand hygeine performed prior to needle/catheter insertion Sterile barriers in place: cap, gloves and mask Spinal Block Patient position: sitting Monitoring: continuous pulse ox and frequent blood pressure checks Approach: midline The skin was infiltrated with Lidocaine 1%. Level: L3-4 Injection technique: single-shot Needle: Jimbo, 24 g, other (specify) (4 inch) Number of attempts: 1 Assessment Adverse events: none Additional Comments: Pre-block time out performed. Skin wheal placed with Lidocaine 1% (Plain) infiltration. Spinal needle advanced to clear CSF flow with good swirl on aspiration. NO Heme; NO Paresthesias. Easy aspiration at the end of injection. Patient tolerated the procedure well. Patient noted to be comfortable with surgical incision. Dutch Pineda MD GA ANESTHESIA Final Result * Hemoglobin A1c with Estimated Average Glucose (07/03/2024 10:29 AM EDT) Hemoglobin A1C 5.5 <5.7 % 07/03/2024 1:42 PM EDT [facility] Comment: A1c% Interpretation 5.7 - 6.0 Increase risk of diabetes 6.1 - 6.4 Higher risk of diabetes > or = 6.5 Consistent with diabetes Diabetes Care, 33(Supp 1):S1-S61, 2009 Estimated Average Glucose 111 mg/dL 07/03/2024 1:42 PM EDT [facility] Blood Blood specimen / Unknown 07/03/2024 10:29 AM EDT 07/03/2024 1:04 PM EDT Jess Baughkarmenbessy JOSE LAB BLOOD [place] [address], [place] [address] * (ABNORMAL) Complete Blood Count, with Differential (07/03/2024 10:29 AM EDT) White Blood Cell Count 4.4 4.0 - 11.0 Thou/uL 07/03/2024 1:26 PM [facility] Platelet Count 198 150 - 450 Thou/uL 07/03/2024 1:26 PM [facility] Hemoglobin 14.0 11.7 - 15.7 g/dL 07/03/2024 1:26 PM [facility] Hematocrit 41.6 35.0 - 47.0 % 07/03/2024 1:26 PM [facility] Red Blood Cell Count 4.49 4.00 - 5.40 Mil/uL 07/03/2024 1:26 PM [facility] MCV 93 80 - 100 fL 07/03/2024 1:26 PM [facility] MCH 31.2(H) 27.0 - 31.0 pg 07/03/2024 1:26 PM [facility] MCHC 33.7 30.0 - 36.0 g/dL 07/03/2024 1:26 PM [facility] RDW 13.1 11.5 - 14.5 % 07/03/2024 1:26 PM [facility] MPV 10.4 7.5 - 12.5 fL 07/03/2024 1:26 PM EDT [facility] Neutrophils Auto 51.7 % 07/04/19 1:26 PM EDT [facility] Immature Granulocytes 0.2 % 07/03/2024 1:26 PM EDT [facility] Lymphocytes Auto 34.9 % 07/04/19 1:26 PM EDT [facility] Monocytes Auto 9.6 % 07/03/2024 1:26 PM EDT [facility] Eosinophils Auto 2.5 % 07/04/19 1:26 PM EDT [facility] Basophils Auto 1.1 % 07/03/2024 1:26 PM EDT [facility] Abs Neutrophils Auto 2.27 2.00 - 7.50 Thou/uL 07/03/2024 1:26 PM EDT [facility] Abs Immature Granulocytes 0.01 0.00 - 0.10 Thou/uL 07/03/2024 1:26 PM EDT [facility] Abs Lymphocytes Auto 1.53 1.50 - 4.50 Thou/uL 07/03/2024 1:26 PM EDT [facility] Abs Monocytes Auto 0.42 0.20 - 1.50 Thou/uL 07/03/2024 1:26 PM EDT [facility] Abs Eosinophils Auto 0.11 0.00 - 0.70 Thou/uL 07/03/2024 1:26 PM EDT [facility] Abs Basophils Auto 0.05 0.00 - 0.20 Thou/uL 07/03/2024 1:26 PM EDT [facility] Blood Blood specimen / Unknown 07/03/2024 10:29 AM EDT 07/03/2024 1:04 PM EDT us EleanorSameer Haas JOSE LAB BLOOD ORDERABLES Final R esult [address] [address], [address] [address] * MRSA PCR Screen, Qualitative: (07/03/2024 10:29 AM EDT) Pathologist [facility] MRSA Result Not Detected Not Detected 04/25/202 5 4:05 PM EDT [facility] Comment:Performed by the Xpe rt MRSA NxG Assay Swab, Anterior Nares Specimen from nose / Unknown 07/03/2024 10:29 AM EDT 07/03/2024 1:04 PM EDT Jess Haas APRN MICROBIOLOGY - GENERAL ORDER MAGALY Final Result Performing Organization Address [facility]/[place] [address], [address] [address] * Transferrin (07/03/2024 10:29 AM EDT) Transferrin 251 200 - 360 mg/dL 07/03/2024 1:46 PM EDT [facility] Blood Blood specimen / Unknown 07/03/2024 10:29 AM EDT 07/03/2024 1:04 PM EDT EleanorSameer Haas COLLECTION SYSTEMS ADMINISTRATOR LAB BLOOD ORDERABLES Final R esult Performing Organization Address [facility] Co de Phone Number [address] [address], [address] [address] * Prealbumin (07/03/2024 10:29 AM EDT) Prealbumin 22 20 - 40 mg/dL 07/03/2024 1:46 PM EDT [facility] Blood Blood specimen / Unknown 07/03/2024 10:29 AM EDT 07/03/2024 1:04 PM EDT EleanorSameer Haas APRN LAB BLOOD ORDERABLES Final R esult Performing Organization Address City/[facility] Co de Phone Number [address] [address], [address] [address] * (ABNORMAL) Basic Metabolic Panel (07/03/2024 10:29 AM EDT) Glucose 100(H) 65 - 99 mg/dL 07/03/2024 1:46 PM EDT [facility] Comment:Fasting: <100 mg/dL, Non-Fasting: <200 mg/dL (ADA 2004) Blood Urea Nitrogen (BUN) 14 8 - 21 mg/dL 07/03/2024 1:46 PM EDT [facility] Creatinine 0.5 0.4 - 1.1 mg/dL 07/03/2024 1:46 PM EDT [facility] eGFR >90 >59 07/03/2024 1:46 PM T [facility] Comment:CKD-EPI (2020) in mL /min/1.73 sq meters. Sodium 143 136 - 145 mmol/L 07/03/2024 1:46 PM EDT [facility] Potassium 4.6 3.4 - 5.3 mmol/L 07/03/2024 1:46 PM T [facility] Chloride 107 98 - 107 mmol/L 07/03/2024 1:46 PM EDT [facility] CO2 26 22 - 33 mmol/L 07/03/2024 1:46 PM [facility] Anion Gap 10 7 - 17 07/03/2024 1:46 PM [facility] Calcium 9.1 8.7 - 10.5 mg/dL 07/03/2024 1:46 PM [facility] BUN/Creatinine Ratio 28(H) 10.0 - 25.0 Ratio 07/03/2024 1:46 PM [facility] Blood Blood specimen / Unknown 07/03/2024 10:29 AM EDT 07/03/2024 1:04 PM EDT us Jess Haas APRN LAB BLOOD ORDERABLES Final R esult [address] [address], [address] [address] from Last 3 Months Insurance MEDICARE PART A [place] [address] [place] [address] Member Subscriber Plan / Payer (Ef fective 2024-Present) Name:Bouchra Au Relation to Subscriber:Self Name:Bouchra Au Payer ID:Not on file Group ID:Not on file Type:Not on file Address: [address] MEDICARE PART A & B Member Subscriber Plan / Payer ( fective 2024-Present) Name:Bouchra Au Member ID:[id number] Relation to Subscriber:Self Name:Bouchra Au Subscriber ID:[id number] Payer ID:[id number] Group ID:Not on file Type:Not on file Address: [address] Advance Directives * Full Code (Latest Code Status on File) Date Activated Date Inactivated Comments 07/27/2024 11:12 AM * Full Code Date Activated Date Inactivated Comments 07/27/2024 6:14 AM 07/27/2024 11:12 AM * Full Code Date Activated Date Inactivated Comments 02/24/2024 2:38 PM 07/27/2024 5:49 AM * Full Code Date Activated Date Inactivated Comments 02/24/2024 9:23 AM 02/24/2024 2:38 PM Care Teams Slate Mixer Relationship Specialty Start Date End Date Roxane Anthony MD [address] [place] [address] PCP - General Family Medicine 01/30/24 Yves Rodriguez MD [address] [facility] [address] [place] [address] Surgery, Orthopedic 01/30/24 System, Provider Not In Rheumatology 01/31/24
--- OUTSIDE RECORDS SUMMARY | 2024-09-29 12:19 | XMS_ITS | Clinical Summary ---
Author Organization [facility] Address [address] [address] Phone Care Team Providers Care Well Digger Name Role Phone Roxane Anthony MD Primary Care Provid er Allergies Active Allergy Reactions Criticality Noted Date Comments Cephalosporins 12/12/2017 Sulfa (Sulfonamide Antibiotics) 06/2017 Medications biotin 1 mg Cap Take by mouth. Active glucosamine-chondr oitin 500-400 mg tablet Take 1 tablet by mouth. Active multivitamins capsule Take 1 capsule by mouth. Active ibuprofen (ADVIL,MOTRIN) 200 MG tablet Take 200 mg by mouth 2 (two) times a day as needed. Active acetaminophen (TYLENOL) 500 MG tablet Take 500 mg by mouth daily as needed for pain (specific location in comments). Active cholecalciferol (VITAMIN D3) 5,000 unit capsuleIndications :Vitamin D insufficiency Take 1 capsule (5,000 Units total) by mouth daily. 90 capsule 1 2 Active Active Problems Problem Noted Date Diagnosed Date Paget disease of bone 11/11/2019 Assessment & Plan (02/28/2021 2:33 PM EST): Based on her history and available lab work there is no active disease flare. Provided she is not suffering from any progressive symptoms, alkaline phosphatase remains normal I am asking her to return in 6 months. Call if questions or problems. Assessment & Plan (08/09/2020 5:14 PM EDT): Prior labs from November 2019 reassuring-clinically no signs of progression although notable bilateral knee virus by alignment. To assure there is no worsening I requested serum alkaline phosphatase today. Provided she is not suffering from any progressive symptoms, alkaline phosphatase returns normal I am asking her to return in 6 months. Call if questions or problems. Assessment & Plan (11/11/2019 11:09 PM EDT): Based on her history and available lab work from March 2019 it does not suggest active disease flare. I requested medical records release from prior rheumatological care for review and charting. To assure there is no worsening I requested serum alkaline phosphatase today. Provided she is not suffering from any progressive symptoms, alkaline phosphatase returns normal I am asking her to return in 6 months. Get influenza vaccine by mid December 2019. Call if questions or problems. Vitamin D insufficiency 11/11/2019 Assessment & Plan (02/06/2021 2:28 PM EST): Continue proper supplementation to improve serum level. Optimal serum level should be 45-50 NG/mL Assessment & Plan (08/09/2020 5:12 PM EDT): Continue proper supplementation to improve serum level. Optimal serum level should be 45-50 NG/mL Assessment & Plan (11/11/2019 11:04 PM EDT): Serum level requested to make sure that she is not in need for more supplementation. Optimal serum level should be 45-50 NG/mL Osteoarthritis of multiple joints 11/11/2019 Assessment & Plan (02/28/2021 2:37 PM EST): Joint protection, energy conservation. Gentle, regular exercise routine. Avoid falls, injuries, overuse. Keep body weight in ideal range for her height. She may benefit from topical cream such as Arnica, Biofreeze, Aspercreme versus medicated patches such as salonpas, icy hot patch 2-3 times daily and if necessary at bedtime x 3 weeks. I provided her with 4 samples of Salonpas patches: LOT: [id number], EXP: 07/2021 A She may benefit from viscosupplementation to her knee-informational pamphlet printed today. Assessment & Plan (08/09/2020 5:15 PM EDT): Joint protection, energy conservation. Gentle, regular exercise routine. Due to marked obesity and difficulty moving I suggested her to consider warm pool exercises. Avoid falls, injuries, overuse. Keep body weight in ideal range for her height. She may benefit from topical cream such as Arnica, Biofreeze, Aspercreme versus medicated patches such as salonpas, icy hot patch 2-3 times daily and if necessary at bedtime x 3 weeks. Assessment & Plan (11/11/2019 11:05 PM EDT): Joint protection, energy conservation. Gentle, regular exercise routine. Avoid falls, injuries, overuse. Keep body weight in ideal range for her height. She may benefit from topical cream such as Arnica, Biofreeze, Aspercreme versus medicated patches such as salonpas, icy hot patch 2-3 times daily and if necessary at bedtime x 3 weeks. Hair thinning 11/11/2019 Assessment & Plan (11/11/2019 11:07 PM EDT): Serum TSH requested. Provide enough of vitamin group B particularly B1, B2, B6. Class 3 severe obesity due t o excess calories with serious comorbidity and body mass index (BMI) of 45.0 to 49.9 in adult 11/11/2019 Assessment & Plan (02/06/2021 2:27 PM EST): Portion control. Limit concentrated sugars, saturated fats and calories in the diet. Keep well-hydrated. If unable to achieve expected goal consider formal dietary/nutritional support. Assessment & Plan (08/09/2020 5:13 PM EDT): Portion control. Limit concentrated sugars, saturated fats and calories in the diet. Keep well-hydrated. If unable to achieve expected goal consider formal dietary/nutritional support. Since she is unable to bring her body weight down with maximal efforts on her side I suggested her to get help from formal Weight Management Program that is approved by her insurance either at [facility] or [facility] or [facility]. Assessment & Plan (11/11/2019 11:04 PM EDT): Portion control. Limit concentrated sugars, saturated fats and calories in the diet. Keep well-hydrated. If unable to achieve expected goal consider formal dietary/nutritional support. We set up a goal for weight loss at 10 pounds in 6 months. She is encouraged to follow the same diet that she was able to comply with and continue gentle, regular exercising in her pool until closes for the season. Immunizations Immunization Administration Dates Next Due COVID-19 (Pre-12/31) Pfizer Vaccine, mRNA, PF ,07/29/2020 Family History Medical History Relation Comments Ovarian cancer Mother Relation Status Comments Father Mother Social History Tobacco Use Types Packs/Day Years Used Date Smoking Tobacco: Never Smokeless Tobacco: Never Education Answer Date Recorded Are you interested in more education? Not on miguel e 07/06/2022 Are you concerned about learning? Not on file 07/06/2022 No 07/06/2022 No 07/06/2022 Digital Access Answer Date Recorded No 08/04/2022 No 08/04/2022 No 08/04/2022 Reliable internet access at home? Not on file 08/04/2022 Device with a working camera? Not on file Comments Unknown Sex and Gender Information Value Date Recorded Sex Assigned at Female 01/15/2019 4:32 PM EST Legal Sex Female 4:27 PM EST Gender Identity Female 01/15/2019 4:32 PM EST Sexual Orientation Straight 01/15/2019 4: 32 PM EST Last Filed Vital Signs Vital Sign Reading Time Taken Comments Blood Pressure 126/82 02/06/2021 1:33 PM EST Pulse 92 02/06/2021 1:33 PM EST Temperature 36.8 C (98.3 F) 03/16/2019 12:33 PM EST Respiratory Rate 16 02/06/2021 1:33 PM EST Oxygen Saturation 100% 02/06/2021 1:33 PM EST Inhaled Oxygen Concentration - - Weight 125.6 kg (277 lb) 02/06/2021 1:33 PM EST Height 158.1 cm (5' 2.24 ) 02/06/2021 1:33 PM ES T Body Mass Index 50.27 02/06/2021 1:33 PM EST Plan of Treatment Health Maintenance Due Date Last Done Comments Adult Td,Tdap Booster 1959 LIPID PANEL 1959 DEPRESSION SCREENING 1971 HEPATITIS C SCREENING 1977 HIV ONE-TIME SCREENING (18-6 5 YEARS) 1977 MAMMOGRAM 1999 COLOGUARD 02/01/2004 COLONOSCOPY 02/01/2004 COLORECTAL CANCER SCREENING 02/01/2004 FIT TEST 02/01/2004 FOBT 02/01/2004 SIGMOIDOSCOPY 02/01/2004 VIRTUAL COLONOSCOPY 02/01/2004 PNEUMOCOCCAL VACCINES (50+ years) (1 of 1 - PCV) 2009 ZOSTER VACCINES (1 of 2) 2009 COVID-19 VACCINE ( - 2023-2 5 season) 2023 03/29/2021, 08/19/2020, 07/29/2020 OSTEOPOROSIS SCREENING INITI AL (ONE-TIME) 02/01/2024 RSV VACCINE (1 - 1-dose 75+ series) 2034 SMOKING STATUS SCREENING (On ce After 26 Yrs) Completed 02/06/2021 HEPATITIS A VACCINES Aged Out No long er eligible based on patient's age to complete this topic HIB VACCINES Aged Out No longer eligi ble based on patient's age to complete this topic MENINGOCOCCAL VACCINES (ACWY) Aged Out No longer eligible based on patient's age to complete this topic MENINGOCOCCAL VACCINES (B) Aged Out N o longer eligible based on patient's age to complete this topic Medical Devices Not on file Insurance CIGNA PPO CIGNA PPO CIGNA PPO CIGNA PPO CIGNA PPO CIGNA PPO CIGNA PPO CIGNA PPO CIG PPO Member Subscriber Plan / Payer (Ef fective 2002-Present) Name:Bouchra Au Relation to Subscriber:Self Name:Bouchra Au Payer ID:[id number] (NAIC) Type:PPO Address: [facility] [id number] [place] [id number] Care Teams Well Digger Relationship Specialty Start Date End Date Roxane Anthony MD [address] [place] [address] PCP - General Internal Medicine 01/15/19 Additional Source Comments The information contained in this document represents components of the legal health record. It is not the complete legal health record.[facility]
[2024-09-29 14:16] LABS: Alanine Aminotransferase 17 U/L (0-31); Albumin Level 4.5 g/dL (3.5-5.0); Alkaline Phosphatase 93 U/L (39-117); Anion Gap 11 (12-20); Aspartate Amino Transferase 25 U/L (5-31); Blood Urea Nitrogen 15 mg/dL (9-16); Calcium 9.0 mg/dL (8.4-10.2); Carbon Dioxide 24 mmol/L (22-29); Chloride 113 mmol/L (96-108); Cholesterol 202 mg/dL (<200); Estimated Glomerular Filt Rate > 60; HDL Cholesterol 69 mg/dL (>40); Magnesium 1.8 mg/dL (1.6-2.6); Potassium 4.2 mmol/L (3.3-5.1); Sodium 144 mmol/L (135-145); Total Protein 7.1 g/dL (6.5-8.0); Triglycerides 66 mg/dL (<150)
[2024-09-30 12:19] LABS: CA-125 6 U/mL (<35)
== END 2024-09-29 11:02 | disposition home or self-care (01) ==
LOC: HO.HMGCLDS 11:01
PROVIDERS: PCP Internal Medicine; Visit Provider Internal Medicine
DX: R73.02 Impaired glucose tolerance (oral) (principal); E55.9 Vitamin D deficiency, unspecified; E56.1 Deficiency of vitamin K; I10 Essential (primary) hypertension; Z80.41 Family history of malignant neoplasm of ovary
CPT/HCPCS: 36415; 80053; 80061; 82306; 83735; 84597; 86304

== ENCOUNTER 2024-10-06 13:37 | Outpatient (AMB) | payer MEDICARE, OTHER, SELFPAY ==
--- NOTE | 2024-10-06 13:41 | MHC.PC.OV ---
Vital Signs 10/06/24 13:44 Height 5 ft 4 in Weight 239 lb BMI 41.0 BP 142/90 H Blood Pressure Location Lt brachial Position Sitting Intake Visit Reasons: annual exam Intake Note: Patient here for a physical exam Hat Former Required: No Accompanied by: Self / Same As Patient Allergies Cephalosporins (CEPHALOSPORINS) Allergy (Intermediate, Verified 10/06/24 13:57) FLUSHING IN FACE FEVER Penicillins (PENICILLINS) Allergy (Intermediate, Verified 10/06/24 13:57) FLUSHING IN FACE, FEVER Sulfa (Sulfonamide Antibiotics) Allergy (Unknown, Verified 10/06/24 13:57) Unknown Medication List - Last Reconciled 10/06/24 by Roxane Yanes MD biotin 2,000 mcg sublingual DAILY blood pressure monitor As directed ibuprofen-acetaminophen 125-250 mg (Advil Dual Action) 2 tabs PO QAM PRN magnesium 200 mg PO DAILY multivitamin 1 tab PO DAILY [Mylanta PRN] omega-3 fatty acids 1,000 mg PO DAILY potassium gluconate 550 mg PO DAILY psyllium 1 tbsp PO DAILY vitamin K2 300 mcg PO DAILY Tobacco use date assessed: 10/06/24 Fall risk assessment: No Falls in past year Last assessed Fall Risk: 10/06/24 Dental Screening Dental Screen Date: 10/06/24 Did you have a dental visit in the last 12 months?: Yes Did you have a dental problem in the last 6 months where you did not have access to dental care?: No Was dental information given to patient?: Patient has dentist HPI HPI Comments History of Present Illness Details The patient is a 64-year-old female presenting for a wellness visit and vaccination review. The patient has a history of diverticulosis and hemorrhoids, which were identified during a previous colonoscopy. A small polyp was removed during the procedure, and the biopsy results were normal, showing no dysplasia. The patient has a history of Paget's disease, for which she previously sought medical consultation. Her alkaline phosphatase levels are monitored regularly, with the most recent result being within normal limits at 93 U/L. The patient reports elevated cholesterol levels, with a total cholesterol of 202 mg/dL, HDL of 69 mg/dL, and LDL of 120 mg/dL. Her [place] Risk Score is calculated at 2.5%, indicating no immediate need for medication. The patient has experienced significant weight gain, increasing from 209 pounds post-knee surgery to 239 pounds over seven months. She attributes this to various factors but plans to implement a weight loss strategy similar to her previous successful attempt. The patient has a history of basal cell carcinoma, which was excised, and she continues to have yearly dermatological check-ups. Her surgical history includes a hysterectomy with bilateral salpingo-oophorectomy, cholecystectomy, appendectomy, tonsillectomy, adenoidectomy, and knee replacement surgeries. She also has a history of carpal tunnel syndrome, which was treated surgically. [facility] Medical History Encounter for physical examination BMI 45.0-49.9, adult Osteoarthritis of right knee Osteoarthritis of left knee Elevated blood pressure reading without diagnosis of hypertension Screen for colon cancer Obese Pseudocholinesterase deficiency Knee osteoarthritis Family history of hemochromatosis Morbid obesity due to excess calories GERD (gastroesophageal reflux disease) Left hip pain Hypercholesterolemia Ascending aortic aneurysm Hypovitaminosis D Osteoarthritis, knee Basal cell carcinoma Paget's bone disease Hypertension Surgical History History of total bilateral knee replacement (TKR) H/O colonoscopy History of foot surgery H/O basal cell carcinoma excision History of tonsillectomy and adenoidectomy S/P AYANA-BSO (total abdominal hysterectomy and bilateral salpingo-oophorectomy) History of laparoscopic cholecystectomy History of appendectomy Family History Father Coronary artery disease Mother Ovarian cancer, Onset Age: 74 Maternal Aunt Breast cancer Maternal Uncle Colon cancer Hemochromatosis Social History Household Members Other:: sister Housing: House Are you a primary continuum of care manager to a significant other at home: No Do you presently have visiting nurse or other home services: No Alcohol intake: never Patient Tobacco Use Status: Never used Tobacco e-Cigarette/Vaping Use: Never Used Second Hand Smoke Exposure: No service: No Current occupational status: unemployed and retired Cognitive needs: No Hearing needs: No Vision needs: Yes Questionnaire PHQ-9 Over the last 2 weeks, how often have you been bothered by any of the following problems? 1. Little interest or pleasure in doing things: not at all 2. Feeling down, depressed, or hopeless: not at all 3. Trouble falling or staying asleep, or sleeping too much: not at all 4. Feeling tired or having little energy: not at all 5. Poor appetite or overeating: not at all 6. Feeling bad about yourself - or that you are a failure or have let yourself or your family down: not at all 7. Trouble concentrating on things, such as reading the newspaper or watching television: not at all 8. Moving or speaking so slowly that other people could have noticed. Or the opposite - being so fidgety or restless that you have been moving around a lot more than usual: not at all 9. Thoughts that you would be better off or of hurting yourself in some way: not at all Total score: 0 Depression Screening Interpretation: Negative Depression Screening Done: Yes 87100 - PHQ-9 Billing: Yes Source: Developed by Drs. Edmund Patel, Margret Joy, Torito Bhardwaj and colleagues, with an educational nabeel from [employer]. Thrive Questionnaire Date Thrive assessed: 10/05/24 I am a: Patient What is your living situation today?: I have a steady place to live Within the past 12 months, did the food you bought not last and you didn't have the money to get more?: Never true Within the past 12 months, did you worry whether your food would run out before you got money to buy more?: Never true Do you have trouble paying for medicines?: No Do you have trouble getting transportation to medical appointments?: No Do you have trouble paying your heating and electricity bill?: No Do you have trouble taking care of your child, family member or friend?: No Do you have trouble with day-to-day activities such as bathing, preparing meals, shopping, managing finances, etc.?: No Are you currently unemployed and looking for a job?: No Are you interested in more education?: No Please select the resources that you would like help with: None Currently or been in a relationship where the following occur: No concerns reported THRIVE Score: 0 AUDIT C Alcohol Use Questionnaire (AUDIT-C) 1. How often do you have a drink containing alcohol?: Never Total Score: 0 Score Reviewed/Action Taken: No DON-7 AMB Questionnaire DON-7 Date DON - 7 assessed: 10/06/24 Feeling nervous, anxious, or on edge: 1 = Several days Not being able to stop or control worryin = Several days Worrying too much about different things: 1 = Several days Trouble relaxin = Several days Being so restless that it is hard to sit still: 0 = Not at all Becoming easily annoyed or irritable: 1 = Several days Feeling afraid as if something awful might happen: 1 = Several days Total DON-7 score (0-4 normal; 5-9 mild; 10-14 moderate; 15-21 severe): 6 Source: Developed by Drs. Edmund Patel, Margret Joy, Torito Bhardwaj and colleagues, with an educational nabeel from [employer]. DON-7 Assessment Billing DON-7 Assessment Tool: DON-7 Assessment 26772 Review of Systems Const All systems reviewed & are unremarkable except as noted in HPI and below Card Denies chest pain at rest, Denies chest pain with activity, Denies edema, Denies irregular heart rhythm, Denies claudication, Denies dyspnea, Denies dyspnea on exertion, Denies orthopnea, Denies paroxysmal nocturnal dyspnea and Denies slow heart rate Resp Denies cough, Denies dyspnea and Denies dyspnea on exertion GI Denies abdominal pain, Denies change in bowel habits, Denies excessive flatus, Denies nausea and Denies vomiting Denies urinary incontinence, Denies urinary hesitancy and Denies urinary urgency Musc Denies abnormal gait, Denies atrophy, Denies deformity and Denies limited range of motion Skin/Breast Denies bleeding lesions, Denies changing lesions and Denies rash Neuro Denies abnormal gait and Denies lack of coordination Physical exam (Primary Care) Vital Signs: Last Vital Signs BP 142/90 H 10/06/24 13:44 BMI result Body Mass Index 41.0 BMI Assessment/Plan discussion: High BMI High, discussed plan: lifestyle, weight reduction, dietary and physical activity Tobacco/Smoking Status: Tobacco use Status Tobacco use date assessed 10/06/24 10/06/24 13:50 Patient Tobacco Use Status Never used Tobacco 10/06/24 13:43 e-Cigarette/Vaping Use Never Used 10/06/24 13:43 PHQ-9: PHQ-9 Score PHQ-9: Total score 0 10/06/24 14:32 Depression Screening Interpretation: Negative Thrive Assessment: Date of Thrive Assessment Date Thrive assessed 10/05/24 10/06/24 13:43 Currently or been in a relationship where the following occur: No concerns reported [facility] Head: Yes normal to inspection, Yes normocephalic and Yes atraumatic Ears: external ears normal Eyes General: appearance normal, both eyes and all related structures Eyelids: Yes eyelids normal Conjunctivae: conjunctivae normal Neck Neck: Yes normal visual inspection and Yes supple Resp Effort & Inspection: normal respiratory effort Auscultation: clear to auscultation bilaterally Cardio Jugular venous distension: no JVD Rate: regular rate Rhythm: regular rhythm Heart sounds: S1 normal heart sound present and S2 normal heart sound present GI Inspection: Yes normal to inspection Palpation (GI): Soft to palpation and nontender Auscultation: normal bowel sounds Skin General skin exam: no rashes or lesions noted Neuro General: no focal motor deficits Extrem General: Yes full ROM Psych Appearance: grossly normal Immunizations pneumoc 20-yaakov conj-dip cr(PF) 0.5 mL IM syringe Performing Provider: Roxane Yanes MD Performing Location: [facility] Administered by: ZOHREH Glynn on 10/06/24 14:32 Dose Route Admin Location Dispensed Lot Number Expiration Date [facility] Restaurant Attendant 0.5 mL IM Right Deltoid 0.5 mL [id number] 09/08/25 4170-3497-08 [employer] Total Dispensed Waste 0.5 mL 0 % VIS Given Date VIS Provided VIS Publication Date 10/06/24 Single Vaccine 24 Eligibility Eligibility Date Funding Source Not C Eligible 10/06/24 Private Boostrix Tdap 2.5 Lf unit-8 mcg-5 Lf/0.5 mL intramuscular syringe Performing Provider: Roxane Yanes MD Performing Location: [facility] Administered by: ZOHREH Glynn on 10/06/24 14:32 Dose Route Admin Location Dispensed Lot Number Expiration Date [facility] Restaurant Attendant 0.5 mL IM Left Deltoid 0.5 mL [id number] 05/01/26 24131-813-96 [employer] Total Dispensed Waste 0.5 mL 0 % VIS Given Date VIS Provided VIS Publication Date 10/06/24 Single Vaccine 24 Eligibility Eligibility Date Funding Source Not [facility] Eligible 10/06/24 Private Coding Level of Care Code Est Pt Prev Care >65y(77877) Diagnoses Encounter for physical examination Z00.00 Morbid obesity with BMI of 40.0-44.9, adult E66.01; Z68.41 Additional Codes DON-7 Assessment Billing - DON-7 Assessment Tool: DON-7 Assessment 55385 ([id number]) PHQ-9 - 98361 - PHQ-9 Billing: Yes ([id number]) Time Spent (min) 33 Assessment & Plan Assessment & Plan (1) Encounter for physical examination: Code(s): Z00.00 - Encounter for general adult medical examination without abnormal findings Category: Medical (2) Morbid obesity with BMI of 40.0-44.9, adult: Code(s): E66.01 - Morbid (severe) obesity due to excess calories; Z68.41 - Body mass index [BMI] 40.0-44.9, adult Category: Medical Plan The patient will receive the pneumonia and tetanus vaccinations today, as they are due based on her age and vaccination history. The Shingrix vaccine will be administered one month after the pneumonia vaccine to avoid concurrent administration with a live vaccine. The patient's cholesterol levels will continue to be monitored, with no immediate need for medication given her low Chat[place]hoochee Risk Score of 2.5%. She is encouraged to maintain a healthy lifestyle to manage her cholesterol levels. The patient plans to resume her weight loss efforts following her knee surgery, aiming to return to her previous weight. Regular follow-ups will be scheduled to monitor her progress and provide support as needed. The patient will continue her regular dermatological check-ups for basal cell carcinoma surveillance. Her alkaline phosphatase levels will be monitored as part of her Paget's disease management. Patient was informed and verbally consented to the use of an ambient scribe for clinic note documentation during this visit. Orders: Orders TDaP Immunization Today Z23 - Encounter for immunization Pneumococcal 20 Immunization Today Z23 - Encounter for immunization XR DEXA axial skeleton 5 Months Z78.0 - Asymptomatic menopausal state
[2024-10-06 13:44] VITALS: BP 142/90; BMI 41.0
--- OUTSIDE RECORDS SUMMARY | 2024-10-06 14:26 | XMS_ITS | Clinical Summary ---
Author Organization [facility] Address [address] [place] [address] Care Team Providers Care Insurance Marketing Rep Name Role Phone Roxane Anthony MD Primary Care Provider [phone] Yves Rodriguez MD Unavailable [phone] System, Provider Not In Unavailable Unavaila ble [...] tablet by mouth daily. Nutritional yeast weekly [place] 3 Psyllium Husk K2 Electrolytes when fasting [...] 8:48 AM EST): Follows with Rheum in [place]. Encounters Date Type Department Care Team Description 09/01/2024 Scanned Document Orthopedic [address] [phone] Yves Rodriguez MD 08/20/2024 1:10 PM EDT Ancillary [facility] [address] [phone] 08/20/2024 1:00 PM EDT Office Visit Orthopedic [address] [phone] Rupinder Nazario, JOSE Status post total right knee replacement (Primary Dx) 08/07/2024 Scanned Document Orthopedic [address] [phone] Yves Rodriguez MD 08/07/2024 Refill [facility] [address] [place] [phone] Rupinder Nazario, LAW ENFORCEMENT DIRECTOR Status post total right knee replacement 08/06/2024 Orders Only [facility] [address] [place] [phone] Rupinder Nazario, LAW ENFORCEMENT DIRECTOR Aftercare following joint replacement surgery, unspecified joint (Primary Dx) 08/06/2024 Telephone [facility] [address] [place] [address] Siri Najera, TASIA 08/05/2024 Telephone [facility] [address] [place] [address] Siri Najera, marketing editor Only 08/04/2024 Telephone [facility] [address] [facility] 2nd [address] [place] [address] Yves Rodriguez MD 07/29/2024 Orders Only [facility] [address] [place] [phone] Rupinder Nazario, LAW ENFORCEMENT DIRECTOR Status post total right knee replacement (Primary Dx) 07/27/2024 8:11 AM EDT Anesthesia Event [facility] [address] [phone] Dutch Pineda MD Teti, Scott, CRNA 07/27/2024 8:00 AM EDT - 07/27/2024 10:00 AM EDT Surgery [facility] at [address] [phone] Yves Rodriguez MD ARTHROPLASTY TOTAL KNEE 07/27/2024 5:49 AM EDT - 07/28/2024 11:42 AM EDT Hospital Encounter [facility] [address] [place] [address] Yves Rodriguez MD Arthritis of right knee (Primary Dx) Discharge Disposition: Home with Health Care Services 07/27/2024 Travel 07/08/2024 Orders Only [facility] [address] [phone] Yves Rodriguez MD S/P total knee arthroplasty, right (Primary Dx) from Last 3 Months Social History Tobacco [...] 10:30 AM EDT [facility] Visit [facility] [address] [phone] Yves Rodriguez MD [address] [place] [address] Health Maintenance Due Date Last Done Comments [...] 60-74 years 1-dose series) 2019 COVID-19 Vaccine (2023-2 5 season) 2023 03/29/2021, 08/19/2020, 07/29/2020 DXA Bone Density (Females,Ages 65 and older) 02/01/2024 Influenza Vaccine 10/09/2024 Hepatitis B Vaccines Aged Out No long er eligible based on patient's age to complete this topic Medical Devices Implanted Type Area Licensed Psychologist Device Identifier Shelf Expiration Date Model / Serial / Lot 6191-1-001 Cement Bone Smpx P Radopq Fd Sterl - [id number] Implanted:Qt y: 1 on 02/24/2024 by Yves Rodriguez MD at [facility] Cement Left: Knee [employer] - DIV STR [id number] 07/08/2025 6191-1-001 / / [id number] Cement Bone Smpx P Radopq Fd Sterl - [id number] Implanted:Qt y: 1 on 02/24/2024 by Yves Rodriguez MD at [facility] Cement Left: Knee [employer] - DIV STR [id number] 07/08/2025 6191-1-001 / / [id number] Cement Bone Smpx P Radopq Fd Sterl - [id number] Implanted:Qt y: 1 on 07/27/2024 by Yves Rodriguez MD at [facility] Cement Right: Knee [employer] - DIV STR [id number] 05/08/2026 / / [id number] Cement Bone Smpx P Radopq Fd Sterl - [id number] Implanted:Qt y: 1 on 07/27/2024 by Yves Rodriguez MD at [facility] Cement Right: Knee [employer] - DIV STR [id number] 05/08/2026 / / [id number] Component Patellar 32mm Rsrfc Susy 2 Knee - [id number] Implanted:Qt y: 1 on 02/24/2024 by Yves Rodriguez MD at [facility] Joint Prosthesis Left: Knee [employer] - DIV S [id number] 01/16/2033 [id number] / / [id number] Component Femoral 5 John Paul Knee Left Posterior Stab Cement - [id number] Implanted:Qt y: 1 on 02/24/2024 by Yves Rodriguez MD at [facility] Joint Prosthesis Left: Knee [employer] - DIV S [id number] 08/19/2033 [id number] / / [id number] Baseplate Tibial Legion 3 Knee Left Cement Male Taper Ti - [id number] Implanted:Qt y: 1 on 02/24/2024 by Yves Rodriguez MD at [facility] Joint Prosthesis Left: Knee [employer] - DIV S [id number] 08/05/2033 [id number] / / [id number] Insert Articular 3-4 13mm Knee Posterior Stab High Flxn Xlpe - [id number] Implanted:Qt y: 1 on 02/24/2024 by Yves Rodriguez MD at [facility] Joint Prosthesis Left: Knee [employer] - DIV S [id number] 08/07/2033 [id number] / / [id number] Component Patellar Oval 32mm Rsrfc Susy 2 Knee - [id number] Implanted:Qt y: 1 on 07/27/2024 by Yves Rodriguez MD at [facility] Joint Prosthesis Right: Knee [employer] - DIV S [id number] 02/11/2034 [id number] / / [id number] Baseplate Tibial Legion 3 Knee Right Cement Male Taper Ti - [id number] Implanted:Qt y: 1 on 07/27/2024 by Yves Rodriguez MD at [facility] Joint Prosthesis Right: Knee [employer] - DIV S [id number] 07/11/2033 [id number] / / [id number] Insert Articular 3-4 11mm Knee Posterior Stab High Flxn Xlpe - [id number] Implanted:Qt y: 1 on 07/27/2024 by Yves Rodriguez MD at [facility] Joint Prosthesis Right: Knee [employer] - DIV S [id number] 09/15/2033 [id number] / / [id number] Component Femoral 4 Knee Right Posterior Stab Cement Legion - [id number] Implanted:Qt y: 1 on 07/27/2024 by Yves Rodriguez MD at [facility] Joint Prosthesis Right: Knee [employer] - DIV S [id number] 06/03/2033 [id number] / / [id number] Procedures Procedure Name Priority Date/Time Associated Diagnosis Comments XR KNEE 3 VIEWS-RIGHT Routine 08/20/2024 1:17 PM EDT Status post total right knee replacement ANES BLOCK - LOWER EXTREMITY Routine 07/27/2024 2:08 PM EDT ANES BLOCK - SPINAL Routine 07/27/2024 8 :34 AM EDT [place] ARTHRP KNE CONDYLE&PLATU MEDIAL&LAT COMPARTMENTS 07/27/2024 7:56 AM EDT Primary osteoarthritis of right knee Special Needs SPINAL, REGIONAL BLOCK, PA ASSIST- RUPINDER NAZARIO, TKA, CLEMONS AND NEPHEW, LEGION/ GEINII COBALT CHROME. from Last 3 Months Results * XR Knee 3 views-Right (08/20/2024 1:17 PM EDT) Narrative OAFederico - 08/20/2024 1:18 PM EDT This exam was performed in office at [facility] and images reviewed by orthopedic provider. Any findings are documented within ambulatory encounter note on date of service. us Rupinder Nazario LAW ENFORCEMENT DIRECTOR IMG DIAGNOSTIC IMAGING ORDERA BLES Final Result OA * Block - Lower Extremity (07/27/2024 2:08 [...] noted every 3-5mL. us Dutch Pineda MD [place] ANESTHESIA Final Result * Block - Spinal [...] End Time: 07/27/2024 8:20 AM Performed by: Resident/GLAZIER STAINED GLASS MD [place] Mar CRNA Chart Verification ID [...] comfortable with surgical incision. Dutch Pineda MD [place] ANESTHESIA Final Result from Last 3 Months Insurance MEDICARE PART A & B [facility] MEDICARE PART A & B [facility] Advance Directives * Full Code (Latest Code Status on File) Date Activated Date Inactivated Comments 07/27/2024 11:12 AM * Full Code Date Activated Date Inactivated Comments 07/27/2024 6:14 AM 07/27/2024 11:12 AM * Full Code Date Activated Date Inactivated Comments 02/24/2024 2:38 PM 07/27/2024 5:49 AM * Full Code Date Activated Date Inactivated Comments 02/24/2024 9:23 AM 02/24/2024 2:38 PM Care Teams Insurance Marketing Rep Relationship Specialty Start Date End Date Roxane Anthony MD [address] [facility] [address] [place] [address] PCP - General Family Medicine 01/30/24 Yves Rodriguez MD [address] [place] [address] [address] [place] [address] Surgery, Orthopedic 01/30/24 System, Provider Not In Rheumatology 01/31/24
--- OUTSIDE RECORDS SUMMARY | 2024-10-06 14:26 | XMS_ITS | Clinical Summary ---
Author Organization [facility] Address [address] [address] Phone Care Team Providers Care Tool Machinist Name Role Phone Roxane Anthony MD Primary [...] is approved by her insurance either at [facility] or [facility] or [facility]. Assessment & Plan (11/11/2019 11:04 PM EDT): [...] Name:Bouchra Au Payer ID:[id number] (NAIC) Type:PPO Address: [facility] [id number] [place] [id number] Care Teams Tool Machinist Relationship Specialty Start Date End Date Roxane Anthony MD [address] [place] [address] PCP - General Internal Medicine 01/15/19 Additional Source Comments The information contained in this document represents components of the legal health record. It is not the complete legal health record.[facility]
--- OUTSIDE RECORDS SUMMARY | 2024-10-06 14:27 | XMS_ITS | Patient Health Record ---
Author Organization [facility] Address [address] [place] [address] Care Team Providers Care Beater Room Supervisor Name Role Phone Aris MCCLELLAN, Roxane Primary Care Provider Unavail able Jose Ellis Unavailable [phone] Allergies Allergen (clinical drug ingredient) Drug/Non Drug [...] Risk Notes Problem Pain in right foot (80266740445 9107) Pain in right foot (M79.671) Active confirmed Problem Pain in left foot (47957925225 9107) Pain in left foot (M79.672) Active confirmed Problem Non-pressure chronic ulcer of other part of right foot limited to breakdown of skin (L97.511) Active confirmed Problem Tailor's bunion of right foot ([id number] 58659) Tailor's bunion of right foot (M20.5X1) Active confirmed Problem Tailor's bunion of left foot (74634520067 43319) Tailor's bunion of left foot (M20.5X2) Active [...] X ray : Foot, right 3V 01/06/2015 37870- Debride <25 sq cm 04/07/2014 37625- Debride <25 sq cm 07/22/2014 Insurance Providers Payer Name Payer Address Payer Phone Subscriber Number Group Number Insured Name Patient Relationship to Insured Coverage Start Date Coverage End Date RAY GONZALES [address] [place] [id number] [phone] [id number] AngelyBouchra Self - patient is the insured Medical (General) History Medical History History ICD Code Arthritis Hypertension Mumps Chicken pox Back,Hip,and Knee pain Surgical History Surgery Date(Month/Year) appendectomy 1983 hysterectomy 2011 cholecystectomy Ht/Tailor Bun Right 12/23/2014 removal of hardware left 03/17/2015 gall bladder 1988 tonsillectomy 1964
== END 2024-10-06 14:31 | disposition home or self-care (01) ==
LOC: HO.HMCH 13:38
PROVIDERS: PCP Internal Medicine; Visit Provider Internal Medicine
DX: Z00.00 Encounter for general adult medical examination without abnormal findings (principal); E66.01 Morbid (severe) obesity due to excess calories; Z68.41 Body mass index [BMI] 40.0-44.9, adult; Z23 Encounter for immunization

== ENCOUNTER → 2024-10-06 13:37 | Outpatient (BNVA) | payer MEDICARE, SELFPAY | PROVIDERS: PCP Internal Medicine; Visit Provider Internal Medicine | DX: Z00.00 Encounter for general adult medical examination without abnormal findings (principal); Z23 Encounter for immunization; E66.01 Morbid (severe) obesity due to excess calories; Z68.41 Body mass index [BMI] 40.0-44.9, adult; Z13.31 Encounter for screening for depression; Z13.39 Encounter for screening examination for other mental health and behavioral disorders | CPT/HCPCS: 90471; 90472; 90677; 90715; 96127; 99397 ==

== ENCOUNTER 2025-03-09 08:54 | Outpatient (REF) | payer MEDICARE, SELFPAY ==
--- NOTE | ~2025-03-09 | MM_ITS ---
EXAMINATION: DXA BONE DENSITY AXIAL HISTORY: Z78.0 - Asymptomatic menopausal state TECHNIQUE: Phunware Dual energy absorptiometry (DEXA) of the lumbar spine, total left hip, and femoral neck was performed. COMPARISON: Comparison is made with the prior examination dated 03/06/2023. FINDINGS: The bone mineral density of the lumbar spine is 1.531 g/cm2, corresponding to a T-score of 2.9, and a Z-score of 3.4. This is indicative of normal bone mineral density. This represents a BMD change of -4.0% compared to the prior exam. This is statistically significant. The bone mineral density of the left total hip is 1.236 g/cm2, corresponding to a T-score of 1.8, and a Z-score of 2.2. This is indicative of normal bone mineral density. This represents a BMD change of -5.9% compared to the prior exam. This is statistically significant. The bone mineral density of the left femoral neck is 1.342 g/cm2, corresponding to a T-score of 2.2, and a Z-score of 2.9. This is indicative of normal bone mineral density. This represents a BMD change of -5.4% compared to the prior exam. FRACTURE RISK: The FRAX index suggests a ten year probability of major osteoporotic fracture of 4.2%, and of hip fracture 0.0%. MM/XR DEXA axial skeleton IMPRESSION: Based on bone mineral density, and according to World Health Organization (WHO) criteria, the diagnosis is consistent with normal bone mineral density. Statistically, 68% of repeat scans fall within 1 SD (+/- 0.010 g/cm2 for AP spine L1-L4) and 1 SD (+/- 0.012 g/cm2 for femur total) FRAX is a trademark of the [employer]'s [place] [employer] Metabolic Bone Disease, a World Health Organization (WHO) Collaborating Center. Electronically signed by: Edmund Soto MD 03/09/2025 09:41 AM [facility]
--- OUTSIDE RECORDS SUMMARY | 2025-03-09 11:03 | XMS_ITS | Clinical Summary ---
Author Organization [facility] Address [address] [place] [address] Care Team Providers Care Functional Director Name Role Phone Roxane Anthony MD Primary Care Provider [phone] Yves Rodriguez MD Unavailable [phone] System, Provider Not In Unavailable Unavaila ble [...] tablet by mouth daily. Nutritional yeast weekly [place] 3 Psyllium Husk K2 Electrolytes when fasting [...] muscle spasms. 60 tablet 08/07/19 25 Active erythromycin base (E-MYCIN) 500 MG tabletIndications: Status post total bilateral knee replacement TAKE 2 TABLETS 1 HOURS PRIOR TO DENTAL APPT AND 1 TABLET 6 HOURS AFTER DENTAL APPT 3 tablet 3 12/04/19 25 026 Active Active Problems Problem Noted Date Diagnosed Date Status post total right knee replacement 025 Arthritis of right knee 07/27/2024 Pseudocholinesterase deficiency [...] 8:48 AM EST): Follows with [facility] in [place]. Social History Tobacco Use Types Packs/Day Years [...] 07/27/2024 11:23 AM EDT Plan of Treatment Health Maintenance Due Date Last Done Comments Advance Care Planning 1960 Hepatitis C Virus Screening 1959 DTaP/Tdap/Td Vaccines (1 - Tdap) 1978 Mammogram 1999 Colonoscopy 02/01/2004 Pneumococcal Vaccines 50+ (1 of 1 - PCV) 2009 RSV Vaccine 50 years and older and Patients (1 - Risk 50-74 years 1-dose series) 2009 Zoster (Shingles) Vaccine (1 of 2) 2009 DXA Bone Density (Females,Ages 65 and older) 02/01/2024 Influenza Vaccine 10/09/2024 COVID-19 Vaccine (2024-2 6 season) 2024 03/29/2021, 08/19/2020, 07/29/2020 Hepatitis B Vaccines Aged Out No long er eligible based on patient's age to complete this topic Medical Devices Implanted Type Area Director Market Intelligence Device Identifier Shelf Expiration Date Model / Serial / Lot [id number] Cement Bone Smpx P Radopq Fd Sterl - [id number] Implanted:Q ty: 1 on 02/24/2024 by Yves Rodriguez MD at [facility] Cement Left: Knee DARYN CRANIOMAXILLOFACIAL - [id number] 07/08/2025 / / [id number] Cement Bone Smpx P Radopq Fd Sterl - [id number] Implanted:Q ty: 1 on 02/24/2024 by Yves Rodriguez MD at [facility] Cement Left: Knee DARYN CRANIOMAXILLOFACIAL - [id number] 07/08/2025 / / [id number] Cement Bone Smpx P Radopq Fd Sterl - [id number] Implanted:Q ty: 1 on 07/27/2024 by Yves Rodriguez MD at [facility] Cement Right: Knee DARYN [employer]ANIOMAX[employer]ACIAL - [id number] 05/08/2026 / / [id number] Cement Bone Smpx P Radopq Fd Sterl - [id number] Implanted:Q ty: 1 on 07/27/2024 by Yves Rodriguez MD at [facility] Cement Right: Knee DARYN [employer] - [id number] 05/08/2026 1 / / [id number] Component Patellar 32mm Rsrfc Susy 2 Knee - [id number] Implanted:Q ty: 1 on 02/24/2024 by Yves Rodriguez MD at [facility] Joint Prosthesis Left: Knee [employer] [id number] 01/16/2033 [id number] / / [id number] Component Femoral 5 John Paul Knee Left Posterior Stab Cement - [id number] Implanted:Q ty: 1 on 02/24/2024 by Yves Rodriguez MD at [facility] Joint Prosthesis Left: Knee [employer] [id number] 08/19/2033 [id number] / / [id number] Baseplate Tibial Legion 3 Knee Left Cement Male Taper Ti - [id number] Implanted:Q ty: 1 on 02/24/2024 by Yves Rodriguez MD at [facility] Joint Prosthesis Left: Knee [employer] [id number] 08/05/2033 [id number] / / [id number] Insert Articular 3-4 13mm Knee Posterior Stab High Flxn Xlpe - [id number] Implanted:Q ty: 1 on 02/24/2024 by Yves Rodriguez MD at [facility] Joint Prosthesis Left: Knee [employer] [id number] 08/07/2033 [id number] / / [id number] Component Patellar Oval 32mm Rsrfc Susy 2 Knee - [id number] Implanted:Q ty: 1 on 07/27/2024 by Yves Rodriguez MD at [facility] Joint Prosthesis Right: Knee [employer] [id number] 02/11/2034 [id number] / / [id number] Baseplate Tibial Legion 3 Knee Right Cement Male Taper Ti - [id number] Implanted:Q ty: 1 on 07/27/2024 by Yves Rodriguez MD at [facility] Joint Prosthesis Right: Knee [employer] [id number] 07/11/2033 [id number] / / [id number] Insert Articular 3-4 11mm Knee Posterior Stab High Flxn Xlpe - [id number] Implanted:Q ty: 1 on 07/27/2024 by Yves Rodriguez MD at [facility] Joint Prosthesis Right: Knee [employer] [id number] 09/15/2033 [id number] / / [id number] Component Femoral 4 Knee Right Posterior Stab Cement Legion - [id number] Implanted:Q ty: 1 on 07/27/2024 by Yves Rodriguez MD at [facility] Joint Prosthesis Right: Knee [employer] [id number] 06/03/2033 [id number] / / [id number] Insurance MEDICARE PART A & B [facility] MEDICARE PART A & B [facility] Advance Directives * Full Code (Latest Code Status on File) Date Activated Date Inactivated Comments 07/27/2024 11:12 AM * Full Code Date Activated Date Inactivated Comments 07/27/2024 6:14 AM 07/27/2024 11:12 AM * Full Code Date Activated Date Inactivated Comments 02/24/2024 2:38 PM 07/27/2024 5:49 AM * Full Code Date Activated Date Inactivated Comments 02/24/2024 9:23 AM 02/24/2024 2:38 PM Care Teams Functional Director Relationship Specialty Start Date End Date Roxane Anthony MD [address] [place] [address] PCP - General Family Medicine 01/30/24 Yves Rodriguez MD [address] [place] [address] [place] [address] Surgery, Orthopedic 01/30/24 System, Provider Not In [address] [place] [address] Rheumatology 01/31/24
--- OUTSIDE RECORDS SUMMARY | 2025-03-09 11:03 | XMS_ITS | Encounter Summary ---
Author Organization [facility] Address [address] [place] [address] Care Team Providers Care Recreational Assistant Name Role Phone Roxane Anthony MD Primary Care Provider [phone] Yves Rodriguez MD Unavailable [phone] System, Provider Not In Unavailable Unavaila ble Encounter Details Date Type Department Care Team ([facility] st Contact Info) Description 08/07/2024 Scanned Document [facility] [address] [address] Yves Rodriguez MD [address] [place] [address] [id number] Social History Tobacco Use Types Packs/Day Years Used Date Smoking Tobacco: Never Smokeless Tobacco: Never Alcohol Use Standard Drinks/Week Comments Never 0 [...] Orientation Heterosexual (straight) 02/04 2:58 PM EST documented as of this encounter Plan of Treatment Not on file documented as of this encounter Visit Diagnoses Not on filedocumented in this encounter Care Teams Recreational Assistant Relationship Specialty Start Date End Date Roxane Anthony MD [address] [place] [address] Drive [address] [place] [address] PCP - General Family Medicine 01/30/24 Yves Rodriguez MD [address] [place] [id number] Surgery, Orthopedic 01/30/24 System, Provider Not In [address] [place] [address] Rheumatology 01/31/24 documented as of this encounter
--- OUTSIDE RECORDS SUMMARY | 2025-03-09 11:03 | XMS_ITS | Clinical Summary ---
Author Organization [facility] Address [address] [address] Phone Care Team Providers Care Chicken Hanger Name Role Phone Roxane Anthony MD Primary [...] is approved by her insurance either at [facility] or [facility] or [facility]. Assessment & Plan (11/11/2019 11:04 PM EDT): [...] DEPRESSION SCREENING 1971 HEPATITIS C SCREENING 1977 MAMMOGRAM 1999 COLOGUARD 02/01/2004 COLONOSCOPY 02/01/2004 COLORECTAL CANCER SCREENING 02/01/2004 FIT TEST 02/01/2004 FOBT 02/01/2004 SIGMOIDOSCOPY 02/01/2004 VIRTUAL COLONOSCOPY 02/01/2004 PNEUMOCOCCAL VACCINES (50+ years) (1 of 1 - PCV) 2009 ZOSTER VACCINES (1 of 2) 2009 OSTEOPOROSIS SCREENING INITI AL (ONE-TIME) 02/01/2024 INFLUENZA VACCINE (#1) 2024 COVID-19 VACCINE (4 - 2024-2 6 season) 2024 03/29/2021, 08/19/2020, 07/29/2020 RSV VACCINE (1 - 1-dose 75+ series) [...] topic Medical Devices Not on file Insurance CIG PPO CIGNA PPO CIGNA PPO CIGNA PPO CIGNA PPO CIGNA PPO CIGNA PPO CIGNA PPO CIGNA PPO Care Teams Chicken Hanger Relationship Specialty Start Date End Date Roxane Anthony MD [address] [place] [address] PCP - General Internal Medicine 01/15/19 Additional Source Comments The information contained in this document represents components of the legal health record. It is not the complete legal health record.[facility]
--- OUTSIDE RECORDS SUMMARY | 2025-03-09 11:03 | XMS_ITS | Encounter Summary ---
Author Organization [facility] Address [address] [place] [address] Care Team Providers Care Hotel Director Name Role Phone Roxane Anthony MD Primary Care Provider [phone] Yves Rodriguez MD Unavailable [phone] System, Provider Not In Unavailable Unavaila ble Encounter Details Date Type Department Care Team ([facility] st Contact Info) Description 09/01/2024 Scanned Document [facility] [address] [address] Yves Rodriguez MD [address] [place] [id number] Social History Tobacco Use Types Packs/Day Years [...] on filedocumented in this encounter Care Teams Hotel Director Relationship Specialty Start Date End Date Roxane Anthony MD [address] [place] [address] Drive [address] [place] [address] PCP - General Family Medicine 01/30/24 Yves Rodriguez MD [address] [place] [address] Surgery, Orthopedic 01/30/24 System, Provider Not In [address] [place] [address] Rheumatology 01/31/24 documented as of this encounter
--- OUTSIDE RECORDS SUMMARY | 2025-03-09 11:03 | XMS_ITS | Patient Health Record ---
[facility] Address [address] [place] [address] Care Team Providers Care Supervisor Pumping Station Name Role Phone Aris MCCLELLAN, Roxane Primary Care Provider Unavail able Jose Siegel Unavailable [phone] Allergies Allergen (clinical drug ingredient) Drug/Non Drug [...] Risk Notes Problem Pain in right foot (18098901659 9107) Pain in right foot (M79.671) Active confirmed Problem Pain in left foot (89808716266 9107) Pain in left foot (M79.672) Active confirmed Problem Non-pressure chronic ulcer of other part of right foot limited to breakdown of skin (L97.511) Active confirmed Problem Tailor's bunion of right foot (17511227048 39577) Tailor's bunion of right foot (M20.5X1) Active confirmed Problem Tailor's bunion of left foot (79637259484 18372) Tailor's bunion of left foot (M20.5X2) Active [...] X ray : Foot, right 3V 01/06/2015 39125- Debride <25 sq cm 04/07/2014 32589- Debride <25 sq cm 07/22/2014 Insurance Providers Payer Name Payer Address Payer Phone Subscriber Number Group Number Insured Name Patient Relationship to Insured Coverage Start Date Coverage End Date RAY GONZALES [address] [place], [place] [id number] [phone] [id number] Bouchra Au Self - patient is the insured Medical (General) History Medical History History ICD Code Arthritis Hypertension Mumps Chicken pox Back,Hip,and Knee pain Surgical History Surgery Date(Month/Year) appendectomy 1983 hysterectomy 2011 cholecystectomy Ht/Tailor Bun Right 12/23/2014 removal of hardware left 03/17/2015 gall bladder 1988 tonsillectomy 1964
== END 2025-03-09 08:55 | disposition home or self-care (01) ==
LOC: HO.MAMMO 08:54
PROVIDERS: Absent Provider Obstetrics & Gynecology; PCP Internal Medicine; Visit Provider Internal Medicine
DX: Z78.0 Asymptomatic menopausal state (principal)
CPT/HCPCS: 77080

== ENCOUNTER → 2025-03-09 09:15 | Outpatient (BNV) | payer MEDICARE, SELFPAY | PROVIDERS: Absent Provider Obstetrics & Gynecology; PCP Internal Medicine; Visit Provider Radiology Diagnostic Radiology | DX: E28.39 Other primary ovarian failure (principal) | CPT/HCPCS: 77080 ==